=== PATIENT | female | born 1960 | race Caucasian/White ===

== ENCOUNTER → 2016-06-27 | Outpatient (CLI) | payer BC ==
[2016-06-27 12:00] VITALS: BP 125/74; PULSE 98; RESP 16; TEMP 98.2
--- NOTE | 2016-06-27 12:57 | P.PN ---
Subjective This is follow-up visit for this patient with a history of severe and chronic low back pain secondary to lumbar degenerative disc disease, lumbar spondylosis with facet arthropathy, we have done interventional pain management injection, radiofrequency ablation of the medial branch lumbar area on the left side and she is scheduled to have the right side be done the next few weeks, and is currently on pain medications 1-Girard 10/325 every 6 hours 2- Neurontin 600 mg every 8 hours 3- Flexeril 10 mg twice a day 4-amitriptyline 50 mg daily at bedtime and 25 mg every morning Patient denies any side effects of the medication, denies excessive drowsiness or sleepiness, denies suicidal ideation, and reports that the current pain medication is NOT helping To control the pain and improve activity of daily living , patient reported that over the last few weeks she started complaining of some dizziness earlier in the morning, he denies any motor or sensory deficits, but she reported that she has some stress in her life ,secondary to family issues Physical Examinations : 1-Constitutiona : Cooperative , not in acute distress . 2-HEENT : nech ; supple , no Lymphadenopathy , no Thyromegaly , normal thyroid size . eyes : no ptosis , no icterus, no photophobia . ENT : normal of hearing , normal oropharynx , no Thrush . 3- Respiratory : Chest clear to auscultations Bilaterally , no wheezing , no Rhonchi . 4- Cardiovascular : regular rate and rhythem , S1 , S2 , no S3 , no S4. 5- Gastrointestinal : abdomen soft no tenderness , bowel sounds positive all four quadrents , no organomegally . 6- Genitourinary : Defferred . 7- neurologic : Cranial nerve II to XII intact , no focal neurological deffecit (no nystagmus ) . 8-psychatric : alert , oriented X 3 , appropriate affect , intact judgment and insight . 9-Lymphatic : no Lymphadenopathy . 10- musculoskeltal : exams of the cervical spine = motor strength normal bilateral upper extremities exams of the Lumber spine = motor strength lower extremities ,thigh and legs .5/5 deep tendon reflexes : normal Knee Jerk , normal ankle Jerk . lumber facet Loading Test positive strait leg raising test positive at 30 degree , RT ,LT , Fabere test positive RT and positive LT . Range of motion: Range of motion in flexion of the lumbar spine 30 degrees Range of motion range of motion of extension of the lumbar spine 10 Assessment and plan = - Chronic low back pain secondary to lumbar degenerative disc disease , lumbar spondylosis with facet arthropathy without myelopathy , and failed back surgery syndrome and lumbar area -chronic and current use of high-risk medication (Opioids). The patient was counseled about risk of opioid use, psychological risk associated with opioids and was orally counseled to not overuse , abuse , divert ,or sell dictations to take medications as prescribed only , and to restore medication in safe location , and patient counseled against driving while using narcotic medications, and also not to use alcohol or any illicit recreational drugs the patient's verbalized understanding that the lack of compliance will result in failure to renew narcotic prescription and possible discharge from the clinic - diagnoses, prognosis, and treatment options including but not limited to physical therapy, surgical interventions, interventional therapies and medication management including narcotics and adjuvant medication were discussed with the patient and all questions answered to the patient's satisfaction. Patient having dizziness earlier in the morning (new ) Recommend continue [place] 10/325 every 6 hours dispense 120 with one refill, continue Neurontin 600 mg every 8 hours, I will decrease the Flexeril does to 5 mg twice a day, and we will decrease the amitriptyline to 25 mg 2 tablets daily at bedtime , and patient will see her primary care to evaluate regarding her dizziness, and she will follow up with the pain clinic in 2 months Objective - Vital Signs Vital signs: Vital Signs Temp 98.2 F 06/27/16 11:50 Pulse 98 06/27/16 11:50 Resp 16 06/27/16 11:50 BP 125/74 06/27/16 11:50 Pulse Ox 98 06/27/16 11:50 Intake & Output 06/26/16 06/27/16 06/27/16 18:59 06:59 18:59 Weight 60.328 kg
== END | disposition home or self-care (01) ==
LOC: PNWHC3 11:24
PROVIDERS: ATTEND Specialist
DX: M51.36 Other intervertebral disc degeneration, lumbar region (principal); M47.816 Spondylosis without myelopathy or radiculopathy, lumbar region; M46.96 Unspecified inflammatory spondylopathy, lumbar region; M96.1 Postlaminectomy syndrome, not elsewhere classified; Z79.891 Long term (current) use of opiate analgesic; R42 Dizziness and giddiness; Z79.899 Other long term (current) drug therapy
CPT/HCPCS: 99211

== ENCOUNTER 2016-07-11 07:14 | Day surgery (SDC) | payer BC ==
[2016-07-07 08:45] VITALS: BMI 21.7
[~2016-07-11 07:14] MED LIST: LACTATED RINGERS 1,000 ML IV SCH
[2016-07-11 08:14] VITALS: RESP 16; TEMP 97
[2016-07-11] MEDS ORDERED: fentaNYL (PF) 50 MCG/ML 2 ML AMP ONE (09:04)
[2016-07-11] MEDS ORDERED: MIDAZOLAM 2 MG/2 ML VIAL ONE (09:04)
[2016-07-11] MEDS ORDERED: BUPIVACAINE (PF) 0.5% 30 ML VIAL ONE (09:04)
--- NOTE | 2016-07-11 09:38 | P.PCN ---
Date of Procedure: 07/11/16 Procedure(s) Performed: PREOPERATIVE DIAGNOSIS: 1-Lumbar Spondylosis with Facet Arthropathy without myelopathy. POSTOPERATIVE DIAGNOSIS: 1- Lumbar Spondylosis with Facet Arthropathy without myelopathy. PROCEDURES : Right Radiofrequency thermocoagulation, L3-L4, L4-L5, and L5-S1 medial branch, with fluoroscopic guidance ANESTHESIA: IV sedation with versed 2 mg and fentaneyl 100 mcg and local infiltration with lidocaine 1% 6 ml EBL: Minimal PROCEDURE INDICATION: The patient with low back pain secondary to lumbar facet arthropathy who had more than 50% relief of her pain with previous diagnostic lumbar medial branch block with bupivacaine. PROCEDURE DESCRIPTION / TECHNIQUE: The patient was seen and identified in the preoperative area. Risks, benefits, complications, including but not limited to risk of infection ,bleeding , allergic reactions to the medications and no complete pain releife , and alternatives were discussed with the patient, the patient agreed to proceed with the procedure and signed the consent. IV was started. Vital signs remained stable throughout the procedure. Patient was taken to the OR and time out was completed. The patient was placed in the prone position on the procedure table. The lumber area was prepped and draped in the usual sterile fashion. . Vital signs were closely monitored during the procedure .IV sedation was used during the procedure to decrease patients anxiety. Using AP and then oblique fluoroscopy, the ``eye of the Manolo dog corresponding to the connection between the superior and transverse articular processes of right L3, L4, and L5 were identified, marked, and localized with 1 % lidocaine. Subsequently, a 18 [id number] ( Venum ) radiofrequency cannula with a 10-mm active tip was advanced guided by fluoroscopy to each of the `` eyes of the Manolo dog at right L3, L4, and L5. Each site then underwent sensory testing at 50 Hz and 0 to 1 volt and motor testing at 2.5 Hz and 0 to 3 volt with local stimulation, but no radicular symptoms down the legs. Thereafter the right L3-4, L4-5, and L5-S1 sites underwent radiofrequency thermocoagulation at 80 degrees celsius for 90 seconds after injecting 0.5 ml of PF lidocaine 1%. then After the thermocoagulation done , 1 ml of the block solution containing Kenalog 40 mg and 3 ml of marain 0.5% was injected at the right L3-4 , L4-5 , and L5-S1, levels after negative aspiration of CSF and blood and with no paresthesias. Cannulas were retracted while injecting lidocaine 1% until the needle is out. At the end of the procedure, the skin was cleansed and bandages were applied. COMPLICATIONS: No acute complications. DISPOSITION / PLANS: The patient was placed in a supine position and transferred to the recovery area in a stable condition for observation and was discharged from the recovery room after meeting discharge criteria. Home discharge instructions given to the patient by the staff. The patient was reexamined prior to discharge. The patient will schedule a follow up in the clinic in 2-4 weeks.
[2016-07-11] MEDS ORDERED: IV FLUID CONTINUATION 1,000 ML IV ONE (09:43)
[2016-07-11 10:16] VITALS: BP 109/71; PULSE 84
--- NOTE | 2016-07-11 10:23 | FL ---
Fluoroscopy HISTORY: Pain 6 seconds fluoroscopy time supplied to the referring clinician. 3 intraoperative C-arm images docume nt the procedure. See dictated report from anesthesia.
== END 2016-07-11 10:29 | disposition home or self-care (01) ==
LOC: ORPAIN 07:14
PROVIDERS: ATTEND Specialist
DX: M47.816 Spondylosis without myelopathy or radiculopathy, lumbar region (principal); M46.96 Unspecified inflammatory spondylopathy, lumbar region; K21.9 Gastro-esophageal reflux disease without esophagitis; F41.9 Anxiety disorder, unspecified; Z88.6 Allergy status to analgesic agent
CPT/HCPCS: 64635; 64636 ×2; J2250; J3010

== ENCOUNTER → 2016-08-28 | Outpatient (CLI) | payer BC ==
[2016-08-28 11:49] VITALS: BP 124/72; PULSE 96; RESP 16; TEMP 98
--- NOTE | 2016-08-29 06:22 | P.PN ---
Subjective This is follow-up visit for this patient with a history of severe and chronic low back pain secondary to lumbar failed back surgery syndrome (lumbar area ) lumbar facet arthropathy, status post radiofrequency ablation of the medial branch lumbar area, , last visit she was complaining of some dizziness episode And I decreased her Flexeril to 5 mg twice a day (it was 10 mg twice a day ), and also I decreased the amitriptyline to 50 mg daily at bedtime She continued to use [place] 10/325 every 6 hours, and the Neurontin 600 mg every 8 hours, patient saw her primary care Dr. Moreno, and he told her that her dizziness is mostly secondary to in her ear issues, and she is currently on Antivert, and her dizziness improved, she felt that amitriptyline improved her mood, and also Flexeril helped her pain, and she is questioning if he can put her back on her previous dose, she denies any suicidal ideation, he denies any change in the bowel movement or urination, denies any motor or sensory deficit Physical Examinations : 1-Constitutiona : Cooperative , not in acute distress . 2-HEENT : nech ; supple , no Lymphadenopathy , no Thyromegaly , normal thyroid size . eyes : no ptosis , no icterus, no photophobia . ENT : normal of hearing , normal oropharynx , no Thrush . 3- Respiratory : Chest clear to auscultations Bilaterally , no wheezing , no Rhonchi . 4- Cardiovascular : regular rate and rhythem , S1 , S2 , no S3 , no S4. 5- Gastrointestinal : abdomen soft no tenderness , bowel sounds positive all four quadrents , no organomegally . 6- Genitourinary : Defferred . 7- neurologic : Cranial nerve II to XII intact , no focal neurological deffecit . 8-psychatric : alert , oriented X 3 , appropriate affect , intact judgment and insight . 9-Lymphatic : no Lymphadenopathy . 10- musculoskeltal : exams of the cervical spine = motor strength normal bilateral upper extremities exams of the Lumber spine = motor strength lower extremities ,thigh and legs .09/29 Assessment and plan = - Chronic low back pain secondary to lumbar degenerative disc disease , lumbar spondylosis with facet arthropathy without myelopathy , And failed back surgery syndrome and lumbar area - chronic and current use of high-risk medication (Opioids). The patient was counseled about risk of opioid use, psychological risk associated with opioids and was orally counseled to not overuse , divert,or sell dictations to take medications as prescribed only , and to restore medication in safe location , and the patient counseled against driving while using narcotic medications, and also not to use alcohol or any illicit recreational drugs, the patient's verbalized understanding that the lack of compliance will result in failure to renew narcotic prescription and possible discharge from the clinic - diagnoses, prognosis, and treatment options including but not limited to physical therapy, surgical interventions, interventional therapies , and medication management including narcotics and adjuvant medication were discussed with the patient and all The questions answered -medication management =1-refill [place]az 10/325 every 6 hours dispensed 120 with one refill. 2-refill Neurontin 600 mg every 8 hours dispense 90 with 1 refill. 3-increase Flexeril to 10 mg twice a day dispense 60 with 1 refill . 4-increase amitriptyline to 50 mg twice a day Patient will follow up in the pain clinic in 2 months, and if patient complained of increased pain, in the future patient could benefit from caudal epidural steroid injection with lysis of epidural adhesions Objective - Vital Signs Vital signs: Vital Signs Temp 98 F 08/28/16 11:39 Pulse 96 08/28/16 11:39 Resp 16 08/28/16 11:39 BP 124/72 08/28/16 11:39 Pulse Ox 99 08/28/16 11:39 Intake & Output 08/28/16 08/28/16 08/29/16 06:59 18:59 06:59 Weight 61.235 kg
== END | disposition home or self-care (01) ==
LOC: PNWHC3 10:49
PROVIDERS: ATTEND Specialist
DX: M51.36 Other intervertebral disc degeneration, lumbar region (principal); M47.816 Spondylosis without myelopathy or radiculopathy, lumbar region; M46.96 Unspecified inflammatory spondylopathy, lumbar region; M96.1 Postlaminectomy syndrome, not elsewhere classified; R42 Dizziness and giddiness; Z79.899 Other long term (current) drug therapy; Z79.891 Long term (current) use of opiate analgesic
CPT/HCPCS: 99211

== ENCOUNTER → 2016-10-18 | Outpatient (CLI) | payer BC ==
[2016-10-18 14:16] VITALS: BP 115/72; PULSE 94; RESP 18; TEMP 98
--- NOTE | 2016-10-18 14:51 | P.PN ---
Subjective This is follow-up visit for this patient with a history of severe and chronic low back pain secondary to lumbar failed back surgery syndrome, , lumbar spondylosis with facet arthropathy, we have done interventional pain management injection,, diagnostic medial branch block , RFA of the medial branches, on the left side April 2016 and we did the right side lumbar RFA in June 2016, patient had good pain relief until recently and she started having severe low back pain, she denies any motor or sensory deficits, and no change in the bowel movement or urination and is currently on pain medications 1-[place] 10/325 every 6 hours 2-Neurontin 600 mg every 8 hours 3-Flexeril 10 mg twice a day. 4-amitriptyline 50 mg twice a day Patient denies any side effects of the medication, denies excessive drowsiness or sleepiness, denies suicidal ideation, and reports that the current pain medication is NOT helping To control the pain and improve activity of daily living Patient denies any motor or sensory deficit , patient denies any fever or night sweats, denies any change in the bowel movements or urination Physical Examinations : 1-Constitutiona : Cooperative , not in acute distress . 2-HEENT : nech ; supple , no Lymphadenopathy , no Thyromegaly , normal thyroid size . eyes : no ptosis , no icterus, no photophobia . ENT : normal of hearing , normal oropharynx , no Thrush . 3- Respiratory : Chest clear to auscultations Bilaterally , no wheezing , no Rhonchi . 4- Cardiovascular : regular rate and rhythem , S1 , S2 , no S3 , no S4. 5- Gastrointestinal : abdomen soft no tenderness , bowel sounds positive all four quadrents , no organomegally . 6- Genitourinary : Defferred . 7- neurologic : Cranial nerve II to XII intact , no focal neurological deffecit . 8-psychatric : alert , oriented X 3 , appropriate affect , intact judgment and insight . 9-Lymphatic : no Lymphadenopathy . 10- musculoskeltal : exams of the Lumber spine = motor strength lower extremities ,thigh and legs .5/5 deep tendon reflexes : normal Knee Jerk , normal ankle Jerk . lumber facet Loading Test positive strait leg raising test positive at 30 degree , RT ,LT , Fabere test positive RT and positive LT . Range of motion: Range of motion in flexion of the lumbar spine 30 degrees Range of motion range of motion of extension of the lumbar spine 10 Assessment and plan = - Chronic low back pain secondary to lumbar failed back surgery syndrome , lumbar spondylosis with facet arthropathy without myelopathy , - chronic and current use of high-risk medication (Opioids). The patient was counseled about risk of opioid use, psychological risk associated with opioids and was orally counseled to not overuse , divert,or sell dictations to take medications as prescribed only , and to restore medication in safe location , and the patient counseled against driving while using narcotic medications, and also not to use alcohol or any illicit recreational drugs, the patient's verbalized understanding that the lack of compliance will result in failure to renew narcotic prescription and possible discharge from the clinic - diagnoses, prognosis, and treatment options including but not limited to physical therapy, surgical interventions, interventional therapies , and medication management including narcotics and adjuvant medication were discussed with the patient and all The questions answered Patient given prescription refill for [place] 10/325 every 6 hours dispense 120 with one refill, Neurontin 600 mg every 8 hours dispense 90 with 1 refill, Flexeril 10 mg twice a day dispense 60 with one refill, amitriptyline 50 mg twice a day dispense 60 with 1 refill, and patient could benefit from repeat radiofrequency ablation medial branch lumbar area and left-sided L3 -4 / L4 -5/L5-S1 Objective - Vital Signs Vital signs: Vital Signs Temp 98 F 10/18/16 14:08 Pulse 94 10/18/16 14:08 Resp 18 10/18/16 14:08 BP 115/72 10/18/16 14:08 Pulse Ox Intake & Output 10/17/16 10/18/16 10/18/16 18:59 06:59 18:59 Weight 60.781 kg
== END ==
LOC: PNWHC3 12:41
PROVIDERS: ATTEND Specialist
DX: M47.816 Spondylosis without myelopathy or radiculopathy, lumbar region (principal); M46.86 Other specified inflammatory spondylopathies, lumbar region; G89.29 Other chronic pain; Z87.891 Personal history of nicotine dependence; Z79.899 Other long term (current) drug therapy
CPT/HCPCS: 99211

== ENCOUNTER 2016-11-30 10:06 | Day surgery (SDC) | payer BC ==
[2016-11-24 14:50] VITALS: BMI 21.7
[~2016-11-30 10:06] MED LIST changes: +LACTATED RINGERS 1,000 ML IV ONE; -LACTATED RINGERS 1,000 ML IV SCH
[2016-11-30] MEDS ORDERED: LIDOCAINE 1% 20 ML VIAL (10MG/ML) FOR IV START INTRADERMA ONE (11:41)
[2016-11-30 11:58] VITALS: RESP 16; TEMP 97.6
[2016-11-30] MEDS ORDERED: ONDANSETRON 4 MG/2 ML VIAL IVP ONE (12:02)
[2016-11-30] MEDS ORDERED: fentaNYL (PF) 50 MCG/ML 2 ML AMP ONE (12:49)
[2016-11-30] MEDS ORDERED: MIDAZOLAM 2 MG/2 ML VIAL ONE (12:49)
--- NOTE | 2016-11-30 13:11 | P.PCN ---
Date of Procedure: 11/30/16 Preoperative Diagnosis: Postoperative Diagnosis: Procedure(s) Performed: PREOPERATIVE DIAGNOSIS: 1-Lumbar Spondylosis with Facet Arthropathy without myelopathy. POSTOPERATIVE DIAGNOSIS: 1- Lumbar Spondylosis with Facet Arthropathy without myelopathy. PROCEDURES : Left Radiofrequency thermocoagulation, L3-L4, L4-L5, and L5-S1 medial branch, with fluoroscopic guidance ANESTHESIA: IV sedation with versed 2 mg, and fentaneyl 100 mcg and local infiltration with lidocaine 1% 6 ml EBL: Minimal PROCEDURE INDICATION: The patient with low back pain secondary to lumbar facet arthropathy who had more than 50% relief of her pain with previous diagnostic lumbar medial branch block with bupivacaine. PROCEDURE DESCRIPTION / TECHNIQUE: The patient was seen and identified in the preoperative area. Risks, benefits, complications, including but not limited to risk of infection ,bleeding , allergic reactions to the medications and no complete pain releife , and alternatives were discussed with the patient, the patient agreed to proceed with the procedure and signed the consent. IV was started. Vital signs remained stable throughout the procedure. Patient was taken to the OR and time out was completed. The patient was placed in the prone position on the procedure table. The lumber area was prepped and draped in the usual sterile fashion. . Vital signs were closely monitored during the procedure .IV sedation was used during the procedure to decrease patients anxiety. Using AP and then oblique fluoroscopy, the ``eye of the Manolo dog corresponding to the connection between the superior and transverse articular processes of left L3, L4, and L5 were identified, marked, and localized with 1 % lidocaine. Subsequently, a 18 [id number] radiofrequency cannula with a 10- mm active tip was advanced guided by fluoroscopy to each of the ``eyes of the Manolo dog at left L3, L4, and L5. Each site then underwent sensory testing at 50 Hz and 0 to 1 volt and motor testing at 2.5 Hz and 0 to 3 volt with local stimulation, but no radicular symptoms down the legs. Thereafter the left L3-4, L4-5, and L5-S1 sites underwent radiofrequency thermocoagulation at 80 degrees celsius for 90 seconds after injecting 0.5 ml of PF lidocaine 1%. then After the thermocoagulation done , 1 ml of the block solution containing Kenalog 40 mg and 3 ml of marain 0.5% was injected at the left L3-4 , L4-5 , and L5-S1, levels after negative aspiration of CSF and blood and with no paresthesias. Cannulas were retracted while injecting lidocaine 1% until the needle is out. At the end of the procedure, the skin was cleansed and bandages were applied. COMPLICATIONS: No acute complications. DISPOSITION / PLANS: The patient was placed in a supine position and transferred to the recovery area in a stable condition for observation and was discharged from the recovery room after meeting discharge criteria. Home discharge instructions given to the patient by the staff. The patient was reexamined prior to discharge. The patient will schedule a follow up in the clinic in 2-4 weeks. Implants: Indications for Procedure: Operative Findings: Description of Procedure:
[2016-11-30] MEDS ORDERED: KETOROLAC 30 MG/ML 1 ML VIAL IVP STA (13:13)
[2016-11-30] MEDS ORDERED: IV FLUID CONTINUATION 1,000 ML IV ONE (13:17)
[2016-11-30 14:01] VITALS: BP 120/81; PULSE 81
--- NOTE | 2016-12-01 10:27 | FL ---
FLUOROSCOPY 6 seconds of fluoroscopy time were utilized during Pain Injection. 3 images document the procedure.
== END 2016-11-30 13:57 | disposition home or self-care (01) ==
LOC: ORPAIN 10:06
PROVIDERS: ATTEND Specialist
DX: Z88.6 Allergy status to analgesic agent (principal)
CPT/HCPCS: 64635; 64636 ×2; 99152; J2250; J2405; J3010; J1885

== ENCOUNTER → 2016-12-13 | Outpatient (CLI) | payer BC ==
--- NOTE | 2016-12-13 14:28 | P.PN ---
Progress Note - Text Patient returns for followup for back pain without significant radiation. Patient underwent left lumbar RFA in the beginning of November, with right side done last in May 2016 with good results and improvement in pain overall. Patient continues on [place]/Flexeril/Elavil medications for pain with good relief and is requesting increase back to 100 mg po QPM of Elavil today. Patient denies adverse drug effects from medications. Today, pt denies new- onset weakness, bowel/bladder incontinence, or any other signs or symptoms of cauda equina syndrome. There are no signs of acute intoxication, and no indications of medication diversion or overuse. In addition to above, 13-point review of systems is also negative for chest pain , shortness of breath, changes in vision, changes in hearing, new onset weakness , abdominal pain, diarrhea, extreme fatigue, malaise, fever, skin changes, homicidal or suicidal ideation, or bowel or bladder incontinence. Vital Signs: Reviewed in EMR Gen: WDWN, AAOx3, NAD HEENT: NCAT, EOMI, hearing grossly normal Pulm: resp unlabored Abd: soft, NT, ND Neck: supple, trachea midline ROM in flexion lumbar spine: reduced ROM in extension lumbar spine: reduced Lumbar paravertebral tenderness: + Facet loading: + R > L Lower extremity: strength decreased bilaterally due to pain Neuro: CN II-XII grossly intact, muscle strength lower extremities PRESERVED Imaging: Reviewed in EMR Assessment: 1. lumbar spondylosis without myelopathy 2. lumbar DDD 3. lumbar postlaminectomy syndrome 4. chronic pain syndrome Plan: 1. Explanation: Opioid and psychological risk scores were reviewed. Diagnoses , prognoses, and multiple treatment options including but not limited to physical therapy, interventional therapies, adjuvant medical therapies, narcotic medication therapies, and surgery were discussed with the patient and all questions were answered to the patient's satisfaction. 2. Opioid agreement: Patient has previously signed narcotic agreement, and was orally counseled to not overuse, abuse, divert, or cell medications, and to take them as prescribed by only 1 healthcare provider. The patient was also counseled to store opioid medications in a safe and preferably locked location. Patient was also counseled against driving while using narcotic medications and also to not use alcohol or any illicit or recreational drugs. The patient verbalized understanding that lack of compliance with any of the above and likely result in failure to renew narcotic prescriptions, possible discharge from the clinic, and possible legal ramifications thereafter if indicated. 3. Counseling: The patient was counseled extensively on BODY MASS INDEX, EXERCISE. Specifically, the patient was instructed regarding the importance of obesity, and exercise in the context of both chronic pain and overall health. 4. Procedures: repeat right lumbar RFA at next visit 5. Consultations: None 6. Investigations: None 7. Medications: refilled [place] 10/325 #120 with one refill and Elavil increased to 50 mg po QAM and 100 mg po QPM #90 with two refills, Flexeril 10 mg #90 with two refills 8. Disposition: f/u for right lumbar RFA as scheduled PQRS measures: 1-Patient's medications are documented in the chart. 2-Tobacco use is negative 3-Patient has not had a pneumococcal vaccine. 4-Advanced care planning discussed, patient unable to give. 5-Opioid contract signed with the patient. 6-Pain positive, follow-up visit or procedure scheduled 7-Patient's blood pressure measured and documented, WNL. 8-Patient's weight was measured, and body mass index within the normal limits 9-Patient WAS NOT identified as an unhealthy alcohol user.
== END | disposition home or self-care (01) ==
LOC: PNWHC3 13:11
PROVIDERS: ATTEND Anesthesiology
DX: M51.36 Other intervertebral disc degeneration, lumbar region (principal); M47.816 Spondylosis without myelopathy or radiculopathy, lumbar region; M96.1 Postlaminectomy syndrome, not elsewhere classified; G89.4 Chronic pain syndrome
CPT/HCPCS: 80307; 80356; 80364; 99211

== ENCOUNTER 2017-01-03 07:02 | Day surgery (SDC) | payer BC ==
[2017-01-03] MEDS ORDERED: LACTATED RINGERS 1,000 ML IV SCH (07:15)
[2017-01-03 08:16] VITALS: RESP 16; TEMP 97.9
[2017-01-03] MEDS ORDERED: LIDOCAINE 1% 20 ML VIAL (10MG/ML) FOR IV START INTRADERMA ONE (08:19)
[2017-01-03] MEDS ORDERED: IV FLUID CONTINUATION 1,000 ML IV ONE (09:22)
--- NOTE | 2017-01-03 09:23 | FL ---
EXAMINATION TYPE: FL guided pain mgmt statistic DATE OF EXAM: 01/03/2017 HISTORY: Flouroscopy time 5 seconds of fluoroscopy provided. IMPRESSION: 1. Fluoroscopy time.
[2017-01-03 09:38] VITALS: BP 114/69; PULSE 84
--- NOTE | 2017-01-03 09:45 | P.PCN ---
Date of Procedure: 01/03/17 Preoperative Diagnosis: Postoperative Diagnosis: Procedure(s) Performed: Implants: Surgeon: Hang Frost Pathology: none sent Condition: stable Disposition: PACU Indications for Procedure: Operative Findings: Description of Procedure: PREOPERATIVE DIAGNOSIS: Lumbar spondylosis without myelopathy and facet arthropathy POSTOPERATIVE DIAGNOSIS: Lumbar spondylosis without myelopathy and facet arthropathy PROCEDURES: Right Radiofrequency thermocoagulation, L3-L4, L4-L5, and L5-S1 medial branch, with fluoroscopic guidance. ANESTHESIA: 1% lidocaine plain; Conscious sedation with versed/fentanyl EBL: Minimal PROCEDURE INDICATION: The patient with low back pain secondary to lumbar arthropathy who had more than 50% relief of pain with previous diagnostic lumbar medial branch block with bupivacaine. Patient presents for right lumbar RFA today after getting good relief from left side; no use of blood thinners. PROCEDURE DESCRIPTION / TECHNIQUE: The patient was seen and identified in the preoperative area. Risks, benefits, complications, and alternatives were discussed with the patient (including but not limited to incomplete pain relief , bleeding, infection, nerve damage, and allergies to medications), the patient agreed to proceed with the procedure and signed the consent after all questions were answered. Patient was taken to the OR and time out was completed to verify proper patient , position, laterality of pain, and allergies. Pt was placed in the prone position. IV was started. Vital signs remained stable throughout the procedure. A pillow was placed under the patients chest to decrease lordosis. The lumbosacral area was prepped and draped in the usual sterile fashion. Vital signs were closely monitored during the procedure. Conscious sedation was used during the procedure to decrease patients anxiety. Using AP and then oblique fluoroscopy, the eye of the Manolo dog corresponding to the connection between the superior and transverse articular processes of right L4, L5 and top of the sacrum were identified, marked, and localized with 1% lidocaine. Subsequently, a 18 gauge, 100-mm radiofrequency cannula with a 10-mm active tip was advanced guided by fluoroscopy to each of the eyes of the Manolo dog at right L3, L4, and L5 medial branches. Each site then underwent sensory testing at 50 Hz and 0 to 1 volt and motor testing at 2 Hz and 0 to 3 volt with local stimulation, but no radicular symptoms down the legs. Thereafter the right L3, L4, and L5 medial branch sites underwent radiofrequency thermocoagulation at 80 degrees Celsius for 90 seconds after injecting 0.5 ml of PF lidocaine 1%. After thermocoagulation, 1 ml of the block solution containing Kenalog 40 mg and 2 mL of preservative-free normal saline was injected at the right L3, L4, and L5 medial branch levels after negative aspiration of CSF and blood and with no paresthesias. Cannulas were retracted while injecting lidocaine 1% until the needles were removed. At the end of the procedure, the skin was cleansed and bandages were applied. COMPLICATIONS: No acute complications. DISPOSITION / PLANS: The patient was placed in a supine position and transferred to the recovery area in a stable condition for observation and was discharged from the recovery room after meeting discharge criteria. Home discharge instructions given to the patient by the staff. The patient was reexamined prior to discharge. The patient will schedule a follow up in the clinic in 2-4 weeks as bilateral RFA completed.
== END 2017-01-03 09:55 | disposition home or self-care (01) ==
LOC: ORPAIN 07:02
PROVIDERS: ATTEND Anesthesiology
DX: G89.4 Chronic pain syndrome (principal); M47.816 Spondylosis without myelopathy or radiculopathy, lumbar region; M46.96 Unspecified inflammatory spondylopathy, lumbar region; M51.36 Other intervertebral disc degeneration, lumbar region; M96.1 Postlaminectomy syndrome, not elsewhere classified; Z79.891 Long term (current) use of opiate analgesic; Z79.899 Other long term (current) drug therapy
CPT/HCPCS: 64635; 64636 ×2; 99152; J2250; J3301; J3010; 99153

== ENCOUNTER → 2017-02-07 | Outpatient (CLI) | payer BC ==
[2017-02-07 13:39] VITALS: BP 145/77; PULSE 112; RESP 16
--- NOTE | 2017-02-07 13:57 | P.PN ---
Progress Note - Text Patient returns for followup for back pain without significant radiation. Patient underwent bilateral lumbar RFA with good results and improvement in pain overall; patient states that she did have burning in anterior right thigh for one day after procedure but it resolved within 24 hours. Patient continues on [place]/Flexeril/Elavil medications for pain with good relief. Patient denies adverse drug effects from medications. Today, pt denies new-onset weakness, bowel/bladder incontinence, or any other signs or symptoms of cauda equina syndrome. There are no signs of acute intoxication, and no indications of medication diversion or overuse. In addition to above, 13-point review of systems is also negative for chest pain , shortness of breath, changes in vision, changes in hearing, new onset weakness , abdominal pain, diarrhea, extreme fatigue, malaise, fever, skin changes, homicidal or suicidal ideation, or bowel or bladder incontinence. Vital Signs: Reviewed in EMR Gen: WDWN, AAOx3, NAD HEENT: NCAT, EOMI, hearing grossly normal Pulm: resp unlabored Abd: soft, NT, ND Neck: supple, trachea midline ROM in flexion lumbar spine: reduced ROM in extension lumbar spine: reduced Lumbar paravertebral tenderness: + Facet loading: + bilateral Lower extremity: strength grossly intact Neuro: CN II-XII grossly intact, muscle strength lower extremities PRESERVED Imaging: Reviewed in EMR Assessment: 1. lumbar spondylosis without myelopathy 2. lumbar DDD 3. lumbar postlaminectomy syndrome 4. chronic pain syndrome Plan: 1. Explanation: Opioid and psychological risk scores were reviewed. Diagnoses , prognoses, and multiple treatment options including but not limited to physical therapy, interventional therapies, adjuvant medical therapies, narcotic medication therapies, and surgery were discussed with the patient and all questions were answered to the patient's satisfaction. 2. Opioid agreement: Patient has previously signed narcotic agreement, and was orally counseled to not overuse, abuse, divert, or cell medications, and to take them as prescribed by only 1 healthcare provider. The patient was also counseled to store opioid medications in a safe and preferably locked location. Patient was also counseled against driving while using narcotic medications and also to not use alcohol or any illicit or recreational drugs. The patient verbalized understanding that lack of compliance with any of the above and likely result in failure to renew narcotic prescriptions, possible discharge from the clinic, and possible legal ramifications thereafter if indicated. 3. Counseling: The patient was counseled extensively on BODY MASS INDEX, EXERCISE. Specifically, the patient was instructed regarding the importance of obesity, and exercise in the context of both chronic pain and overall health. 4. Procedures: none for now 5. Consultations: None 6. Investigations: None 7. Medications: [place] 10/325 #120 with one refill and Motrin/Flexeril/Neurontin /Elavil all with five refills 8. Disposition: f/u for re-eval in 8 weeks; will discuss reduction of opioids at next visit PQRS measures: 1-Patient's medications are documented in the chart. 2-Tobacco use is negative 3-Patient has not had a pneumococcal vaccine. 4-Advanced care planning discussed, patient unable to give. 5-Opioid contract signed with the patient. 6-Pain positive, follow-up visit or procedure scheduled 7-Patient's blood pressure measured and documented, WNL. 8-Patient's weight was measured, and body mass index within the normal limits 9-Patient WAS NOT identified as an unhealthy alcohol user.
== END | disposition home or self-care (01) ==
LOC: PNWHC3 13:21
PROVIDERS: ATTEND Anesthesiology
DX: M51.36 Other intervertebral disc degeneration, lumbar region (principal); M47.816 Spondylosis without myelopathy or radiculopathy, lumbar region; M96.1 Postlaminectomy syndrome, not elsewhere classified; G89.4 Chronic pain syndrome; Z79.899 Other long term (current) drug therapy
CPT/HCPCS: 99211

== ENCOUNTER → 2017-04-04 | Outpatient (CLI) | payer BC ==
[2017-04-04 14:54] VITALS: BP 113/80; PULSE 113; RESP 16
--- NOTE | 2017-04-04 15:11 | P.PN ---
Subjective Progress Note Date: 04/04/17 This is for visit for this 56 years old female with a chronic history of severe low back pain diagnosed with lumbar spondylosis with lumbar facet arthropathy without myelopathy and also she had failed back surgery syndrome and lumbar area , with done the radiofrequency portion of the medial branch lumbar area which helped her low back pain significantly, had more than 50% improvement in her low back pain currently she is taking and [place] 10/325-6 hours Flexeril 10 mg twice a day and Neurontin 600 mg 3 times a day, sertraline 50 mg every morning and 100 mg daily at bedtime she denies any side effect of the medication she denies any excessive drowsiness or sleepiness and she reported current medications to control her pain she denies any motor or sensory deficit, denies any fever or night sweats Objective - Vital Signs Vital signs: Vital Signs Temp Pulse 113 H 04/04/17 14:41 Resp 16 04/04/17 14:41 BP 113/80 04/04/17 14:41 Pulse Ox 96 04/04/17 14:41 Intake & Output 04/03/17 04/04/17 04/04/17 18:59 06:59 18:59 Weight 61.235 kg - Exam Physical Examinations : 1-Constitutiona : Cooperative , not in acute distress . 2-HEENT : nech ; supple , no Lymphadenopathy , normal thyroid size . eyes : no ptosis , no icterus, no photophobia . ENT : normal of hearing , normal oropharynx , no Thrush . 3- Respiratory : Chest clear to auscultations Bilaterally , no wheezing , no Rhonchi . 4- Cardiovascular : regular rate and rhythem , S1 , S2 , no S3 , no S4. 5- Gastrointestinal : abdomen soft no tenderness , bowel sounds positive all four quadrents , no organomegally . 6- Genitourinary : Defferred . 7- neurologic : Cranial nerve II to XII intact , no focal neurological deffecit . 8-psychatric : alert , oriented X 3 , appropriate affect , intact judgment and insight . 9-Lymphatic : no Lymphadenopathy . 10- musculoskeltal : , Lumber spine = normal moter stegnth lower extremities ,thigh and legs .5/5 deep tendon reflexes : normal Knee Jerk , normal ankle Jerk . positive lumber facet Loading Test strait leg raising test positive at 60 degree , RT ,LT , Fabere test positive RT and positive LT . Multiple trigger point identified in the upper lumbar paravertebral muscles Assessment and Plan Plan: Assessment and plan= chronic low back pain secondary to lumbar degenerative disc disease , lumbar spondylosis with lumbar facet arthropathy , failed back surgery syndrome and lumbar area chronic and current use of high-risk medication (opioids) Patient denies any side effects of the current pain medication and the current treatment/medication ML and the patient to do activity of daily living , Diagnoses, prognosis, treatment options, including but not limited to physical therapy, medication management, interventional therapies, and surgery, were discussed with the patient All the questions answered Patient signed the narcotic agreement, and he was orally counseled, not to overuse, not to abuse, not to Divert , not tp sell pain medication, and to take it as prescribed only, Patient was counseled not to drive or operate heavy equipment while using narcotic medication, and advised not to use alcohol or any Illicit drugs while using the narcotis, the patient's verbalized understanding that lack of compliance with any of the above instructions and will likely to cause discharge from the pain service, not to renew his narcotic prescriptions Medication managements= patient will be given prescription refills for 1-[place] 10/325 every 6 hours dispense 120 with one refill 2-Neurontin 600 mg 3 times a day dispense 90 with 1 refill 3-flexeril 10 mg twice a dispense 60 with one refill 4-amitriptyline 50 mg 1 tablet every morning and 2 tablets daily at bedtime Interventional pain management=none Refferal = Follow-up= 2 months , Time with Patient: Less than 30
== END ==
LOC: PNWHC3 14:16
PROVIDERS: ATTEND Specialist
DX: M51.36 Other intervertebral disc degeneration, lumbar region (principal); M47.816 Spondylosis without myelopathy or radiculopathy, lumbar region; M46.86 Other specified inflammatory spondylopathies, lumbar region; Z79.891 Long term (current) use of opiate analgesic; Z79.899 Other long term (current) drug therapy
CPT/HCPCS: 99211

== ENCOUNTER → 2017-05-30 | Outpatient (CLI) | payer BC ==
--- NOTE | 2017-05-30 13:44 | P.PN ---
Progress Note - Text Progress Note Date: 05/30/17 Patient returns for followup for back pain without significant radiation. Patient previously underwent bilateral lumbar RFA with good results and improvement in pain overall and is requesting left sided lumbar RFA today. Patient continues on [place]/Flexeril/Elavil medications for pain with good relief. Patient denies adverse drug effects from medications. Today, pt denies new-onset weakness, bowel/bladder incontinence, or any other signs or symptoms of cauda equina syndrome. There are no signs of acute intoxication, and no indications of medication diversion or overuse. In addition to above, 13-point review of systems is also negative for chest pain , shortness of breath, changes in vision, changes in hearing, new onset weakness , abdominal pain, diarrhea, extreme fatigue, malaise, fever, skin changes, homicidal or suicidal ideation, or bowel or bladder incontinence. Vital Signs: Reviewed in EMR Gen: WDWN, AAOx3, NAD HEENT: NCAT, EOMI, hearing grossly normal Pulm: resp unlabored Abd: soft, NT, ND Neck: supple, trachea midline ROM in flexion lumbar spine: reduced ROM in extension lumbar spine: reduced Lumbar paravertebral tenderness: + Facet loading: + bilateral Lower extremity: strength grossly intact Neuro: CN II-XII grossly intact, muscle strength lower extremities PRESERVED Imaging: Reviewed in EMR Assessment: 1. lumbar spondylosis without myelopathy 2. lumbar DDD 3. lumbar postlaminectomy syndrome 4. chronic pain syndrome Plan: 1. Explanation: Opioid and psychological risk scores were reviewed. Diagnoses , prognoses, and multiple treatment options including but not limited to physical therapy, interventional therapies, adjuvant medical therapies, narcotic medication therapies, and surgery were discussed with the patient and all questions were answered to the patient's satisfaction. 2. Opioid agreement: Patient has previously signed narcotic agreement, and was orally counseled to not overuse, abuse, divert, or cell medications, and to take them as prescribed by only 1 healthcare provider. The patient was also counseled to store opioid medications in a safe and preferably locked location. Patient was also counseled against driving while using narcotic medications and also to not use alcohol or any illicit or recreational drugs. The patient verbalized understanding that lack of compliance with any of the above and likely result in failure to renew narcotic prescriptions, possible discharge from the clinic, and possible legal ramifications thereafter if indicated. 3. Counseling: The patient was counseled extensively on BODY MASS INDEX, EXERCISE. Specifically, the patient was instructed regarding the importance of obesity, and exercise in the context of both chronic pain and overall health. 4. Procedures: left lumbar RFA L3-S1 5. Consultations: None 6. Investigations: None 7. Medications: [place] 10/325 #120 with one refill 8. Disposition: f/u for procedure as scheduled PQRS measures: 1-Patient's medications are documented in the chart. 2-Tobacco use is negative 3-Patient has not had a pneumococcal vaccine. 4-Advanced care planning discussed, patient unable to give. 5-Opioid contract signed with the patient. 6-Pain positive, follow-up visit or procedure scheduled 7-Patient's blood pressure measured and documented, WNL. 8-Patient's weight was measured, and body mass index within the normal limits 9-Patient WAS NOT identified as an unhealthy alcohol user.
[2017-05-30 23:28] VITALS: BP 127/79; PULSE 102; RESP 16; TEMP 97.5
== END | disposition home or self-care (01) ==
LOC: PNWHC3 12:40
PROVIDERS: ATTEND Anesthesiology
DX: G89.4 Chronic pain syndrome (principal); M54.9 Dorsalgia, unspecified; M51.36 Other intervertebral disc degeneration, lumbar region; M47.816 Spondylosis without myelopathy or radiculopathy, lumbar region; M96.1 Postlaminectomy syndrome, not elsewhere classified; Z79.891 Long term (current) use of opiate analgesic; Z79.899 Other long term (current) drug therapy
CPT/HCPCS: 99211

== ENCOUNTER 2017-06-28 06:11 | Day surgery (SDC) | payer BC ==
[2017-06-26 09:08] VITALS: BMI 21.7
[~2017-06-28 06:11] MED LIST changes: -LACTATED RINGERS 1,000 ML IV ONE; +LACTATED RINGERS 1,000 ML IV SCH
[2017-06-28 06:27] VITALS: RESP 16; TEMP 97.8
[2017-06-28] MEDS ORDERED: LIDOCAINE 1% 20 ML VIAL (10MG/ML) FOR IV START INTRADERMA ONE (06:38)
--- NOTE | 2017-06-28 07:35 | P.PCN ---
Date of Procedure: 06/28/17 Surgeon: Sang Stovall Pathology: none sent Condition: stable Disposition: PACU Description of Procedure: PREOPERATIVE DIAGNOSIS: Lumbar spondylosis without myelopathy, morbid obesity POSTOPERATIVE DIAGNOSIS: Lumbar spondylosis without myelopathy,morbid obesity PROCEDURES : Left Radiofrequency thermocoagulation,L2-4, L3-L4, L4-L5, and L5- S1 medial branch, with fluoroscopic guidance ANESTHESIA: IV conscious sedation with versed and fentaneyl and local infiltration with lidocaine 1% 5 ml EBL: Minimal PROCEDURE INDICATION: The patient with low back pain secondary to lumbar facet arthropathy who had more than 50% relief of her pain with previous diagnostic lumbar medial branch block with bupivacaine. PROCEDURE DESCRIPTION / TECHNIQUE: The patient was seen and identified in the preoperative area. Risks, benefits, complications, including but not limited to risk of infection ,bleeding , allergic reactions to the medications and no complete pain releife , and alternatives were discussed with the patient, the patient agreed to proceed with the procedure and signed the consent. IV was started. Vital signs remained stable throughout the procedure. Patient was taken to the OR and time out was completed. The patient was placed in the prone position on the procedure table. The lumber area was prepped and draped in the usual sterile fashion. . Vital signs were closely monitored during the procedure .IV sedation was used during the procedure to decrease patients anxiety. The target points were identified as follows: For the L5-S1 level which corresponds to the dorsal ramus of L5 the target point was at the superior medial aspect of the sacral ala on the left side of the spine on the AP view of fluoroscopy and for the L2, L3, and L4 medial branches the target points were at the connection between the transverse process and the superior articular process of L3, L4, and L5 vertebra respectively on the left oblique view of fluoroscopy. skin was marked, and localized with 1% lidocaineat these points. Subsequently, an 18 -zc radiofrequency needles with a 10-mm curved active tips were advanced guided by fluoroscopy to each of the target points mentioned above in a superior medial direction to get the active tips as parallel as possible to the medial branches tracks. AP, oblique, and lateral views of fluoroscopy were used to verify needle tips position. Each level then underwent motor testing at 2.5 Hz and 0 to 3 volt with local stimulation, but no radicular symptoms down the legs. Thereafter radiofrequency thermocoagulation at 80 degrees celsius for 90 seconds after injecting 1 ml of PF Marcaine 0.5%(3 mls) with 40 mg of Kenalog. At the end of the procedure, the skin was cleansed and bandages were applied. COMPLICATIONS: No acute complications. DISPOSITION / PLANS: The patient was placed in a supine position and transferred to the recovery area in a stable condition for observation and was discharged from the recovery room after meeting discharge criteria. Home discharge instructions given to the patient by the staff. The patient was reexamined prior to discharge. The patient will schedule a follow up in the clinic in 2-4 weeks.
[2017-06-28 07:50] VITALS: BP 117/75
[2017-06-28 08:13] VITALS: PULSE 95
--- NOTE | 2017-06-28 10:50 | FL ---
Fluoroscopy HISTORY: Pain EXAMINATION TYPE: FL guided pain mgmt statistic DATE OF EXAM: 06/28/2017 Fluoroscopy support supplied to the referring clinician. See dictated report from anesthesia, 30 sec onds fluoroscopy time supplied to the referring clinician. 2 intraoperative C-arm images document th e procedure.
== END 2017-06-28 08:22 | disposition home or self-care (01) ==
LOC: ORPAIN 06:11
PROVIDERS: ATTEND Anesthesiology
DX: M47.816 Spondylosis without myelopathy or radiculopathy, lumbar region (principal); L40.9 Psoriasis, unspecified; Z88.6 Allergy status to analgesic agent
CPT/HCPCS: 64636 ×3; 64635; J2250; J3301; J2001; J3010; 99152; 99153

== ENCOUNTER 2017-07-25 06:15 | Day surgery (SDC) | payer BC ==
[2017-07-23 10:11] VITALS: BMI 22.1
[2017-07-25 06:36] VITALS: TEMP 98
[2017-07-25] MEDS ORDERED: LACTATED RINGERS 1,000 ML IV ONE (06:42)
[2017-07-25] MEDS ORDERED: LIDOCAINE 1% 20 ML VIAL (10MG/ML) FOR IV START INTRADERMA ONE (06:42)
--- NOTE | 2017-07-25 07:29 | P.PCN ---
Date of Procedure: 07/25/17 Surgeon: Sang Stovall Description of Procedure: PREOPERATIVE DIAGNOSIS: Lumbar spondylosis without myelopathy, morbid obesity POSTOPERATIVE DIAGNOSIS: Lumbar spondylosis without myelopathy,morbid obesity PROCEDURES : Left Radiofrequency thermocoagulation, L3-L4, L4-L5, and L5-S1 medial branch, with fluoroscopic guidance ANESTHESIA: IV conscious sedation with versed and fentaneyl and local infiltration with lidocaine 1% 5 ml EBL: Minimal PROCEDURE INDICATION: The patient with low back pain secondary to lumbar facet arthropathy who had more than 50% relief of her pain with previous diagnostic lumbar medial branch block with bupivacaine. PROCEDURE DESCRIPTION / TECHNIQUE: The patient was seen and identified in the preoperative area. Risks, benefits, complications, including but not limited to risk of infection ,bleeding , allergic reactions to the medications and no complete pain releife , and alternatives were discussed with the patient, the patient agreed to proceed with the procedure and signed the consent. IV was started. Vital signs remained stable throughout the procedure. Patient was taken to the OR and time out was completed. The patient was placed in the prone position on the procedure table. The lumber area was prepped and draped in the usual sterile fashion. . Vital signs were closely monitored during the procedure .IV sedation was used during the procedure to decrease patients anxiety. The target points were identified as follows: For the L5-S1 level which corresponds to the dorsal ramus of L5 the target point was at the superior medial aspect of the sacral ala on the left side of the spine on the AP view of fluoroscopy and for the L3, and L4 medial branches the target points were at the connection between the transverse process and the superior articular process of L4, and L5 vertebra respectively on the left oblique view of fluoroscopy. skin was marked, and localized with 1% lidocaineat these points. Subsequently, an 18 [id number] radiofrequency needles with a 10-mm curved active tips were advanced guided by fluoroscopy to each of the target points mentioned above in a superior medial direction to get the active tips as parallel as possible to the medial branches tracks. AP, oblique, and lateral views of fluoroscopy were used to verify needle tips position. Each level then underwent motor testing at 2.5 Hz and 0 to 3 volt with local stimulation, but no radicular symptoms down the legs. Thereafter radiofrequency thermocoagulation at 80 degrees celsius for 90 seconds after injecting 1 ml of PF Marcaine 0.5%(3 mls) with 40 mg of Kenalog. At the end of the procedure, the skin was cleansed and bandages were applied. COMPLICATIONS: No acute complications. DISPOSITION / PLANS: The patient was placed in a supine position and transferred to the recovery area in a stable condition for observation and was discharged from the recovery room after meeting discharge criteria. Home discharge instructions given to the patient by the staff. The patient was reexamined prior to discharge. The patient will schedule a follow up in the clinic in 2-4 weeks.
[2017-07-25] MEDS ORDERED: IV FLUID CONTINUATION 1,000 ML IV ONE (07:35)
[2017-07-25 07:40] VITALS: RESP 16
[2017-07-25 07:55] VITALS: BP 126/84; PULSE 80
--- NOTE | 2017-07-25 09:03 | FL ---
Fluoroscopy HISTORY: Pain 12 seconds fluoroscopy time supplied to the referring clinician. 3 intraoperative C-arm images docum ent the procedure. See dictated report from anesthesia.
--- NOTE | 2017-07-29 15:51 | CDI ---
Outpatient Documentation Clarification Form Date: 07/29/17 CDS/Cold Molding Press Operator Name: Patito Abraham Phone: If any questions, call Swetha Gregorio Public Housing Interviewer at [phone] Patient Name: Ysabel Mojica Admit Date: 07/25/17 Discharge Date: 07/25/17 ATTENTION: The [facility] Coding Staff appreciate your assistance in clarifying documentation. Please respond to the clarification below the line at the bottom and electronically sign. The [facility] Coding staff will review the response and follow-up if needed. Please note: Queries are made part of the Legal Health Record. If you have any questions, please contact the Public Housing Interviewer. Dear Dr. Stovall The pre and post op diagnosis both state a diagnosis of morbid obesity. The patients EMR reflects a BMI of 22.1. According to multiple sources, a BMI of 22.1 is considered normal. Please confirm whether or not the patient is morbidly obese and the correct BMI. Thank you for your kind consideration. MTDD
== END 2017-07-25 08:05 | disposition home or self-care (01) ==
LOC: ORPAIN 06:15
PROVIDERS: ATTEND Anesthesiology
DX: M47.816 Spondylosis without myelopathy or radiculopathy, lumbar region (principal); G54.6 Phantom limb syndrome with pain; Z88.6 Allergy status to analgesic agent; Z78.0 Asymptomatic menopausal state
CPT/HCPCS: 64635; 64636; J2250; J3301; J3010; 99152

== ENCOUNTER 2017-08-22 10:41 | Emergency (ER) | payer BC ==
[2017-08-22 11:11] VITALS: RESP 16
--- NOTE | 2017-08-22 11:52 | ED ---
General Adult HPI - General Chief complaint: Extremity Problem,Nontraumatic Stated complaint: Calf pain Time Seen by Provider: 08/22/17 11:15 Source: patient, RN notes reviewed Mode of arrival: ambulatory Limitations: no limitations - History of Present Illness Initial comments: 57-year-old female presents to the emergency department for a chief complaint of right calf pain. Patient states she was at her nephew's house last night when she first noticed the pain. Patient does not recall straining the muscle but states it is possible. Patient denies any acute injury or pain in the ankle knee or hip. Patient denies pain in the foot. Patient states the pain is worse when she walks and better when she sits down. Patient has not tried anything for pain relief. Patient is concerned of a DVT as her sister had 2 DVTs in the past. Patient denies any history of DVTs, PEs. Patient denies shortness of breath or chest pain. Patient denies nausea, vomiting, or abdominal pain. Patient denies noticing any swelling in either lower extremity. Patient has no other complaints at this time. - Related Data Home Medications Medication Instructions Recorded Confirmed Multivitamins, Thera [Multivitamin] 1 tab PO QAM 11/24/13 07/23/17 Omeprazole [PriLOSEC] 20 mg PO BID PRN 11/24/13 07/23/17 Ascorbic Acid [Vitamin C] 500 mg PO DAILY 04/21/15 07/23/17 Amitriptyline HCl [Elavil] 50 mg PO QAM 06/26/17 07/23/17 Amitriptyline HCl [Elavil] 100 mg PO HS 06/26/17 07/23/17 Calcium Carbonate/Vitamin D3 2 each PO HS 06/26/17 07/23/17 [Caltrate 600 Plus D3 Tablet] Previous Rx's Medication Instructions Recorded Ibuprofen [Motrin] 200 mg PO TID #90 02/07/17 Cyclobenzaprine [Flexeril] 10 mg PO TID PRN #60 tab 04/04/17 Gabapentin [Neurontin] 600 mg PO TID #90 tablet 04/04/17 Hydrocodone/Acetaminophen [[place] 1 tab PO Q6H PRN #120 tablet 05/30/17 10-325] Allergies Allergy/AdvReac Type Severity Reaction Status Date / Time naproxen AdvReac Abdominal Verified 08/22/17 11:12 Pain Review of Systems ROS Statement: Those systems with pertinent positive or pertinent negative responses have been documented in the HPI. ROS Other: All systems not noted in ROS Statement are negative. Past Medical History Past Medical History: GERD/Reflux, Musculoskeletal Disorder, Skin Disorder Additional Past Medical History / Comment(s): HX RENAL CALCULUS. PSORIASIS History of Any Multi-Drug Resistant Organisms: None Reported Past Surgical History: Appendectomy, Back Surgery, Breast Surgery, Orthopedic Surgery Additional Past Surgical History / Comment(s): DANN BREAST AUGMENTATION, RT ELBOW , MULT PAIN CLINIC PROC Past Anesthesia/Blood Transfusion Reactions: No Reported Reaction Past Psychological History: Depression Smoking Status: Current every day smoker Past Alcohol Use History: None Reported Past Drug Use History: None Reported - Past Family History Mother Family Medical History: Cancer Sister(s) Family Medical History: Cancer, Pulmonary Embolus General Exam Limitations: no limitations Respiratory exam: Present: normal lung sounds bilaterally. Absent: respiratory distress, wheezes, rales, rhonchi, stridor Cardiovascular Exam: Present: regular rate, normal rhythm, normal heart sounds. Absent: systolic murmur, diastolic murmur, rubs, gallop, clicks Extremities exam: Present: full ROM, tenderness (Patient has mild tenderness in the right medial calf), normal capillary refill (Refill less than 2 seconds and lower extremities bilaterally), calf tenderness (Patient has mild right medial calf tenderness). Absent: pedal edema (No swelling noted in lower extremities) , joint swelling, other (Pedal pulse 2+ and lower extremities bilaterally. No swelling noted in the right lower exterminate. No excessive warmth to touch on the right lower extremity. Temperature of lower extremities is equal bilaterally.) Neurological exam: Present: alert Psychiatric exam: Present: normal affect, normal mood Course Vital Signs 08/22/17 11:09 Temperature 97.4 F L Pulse Rate 111 H Respiratory 16 Rate Blood Pressure 124/71 O2 Sat by Pulse 98 Oximetry Medical Decision Making - Medical Decision Making 57-year-old female presents to the emergency department for a chief complaint of right calf pain. Patient states she noticed tenderness in her right calf last night when she was walking. Patient denies pain in the calf before last night. She was expecting it to go away by this morning but did not. Patient denies any trauma or injury to the right extremity. Patient denies straining the muscle but states it was possible. Patient is concerned for DVT because her sister had 2 DVTs. Patient has no history of thrombosis. Patient denies tenderness in the right ankle, foot, tibia, or knee. Neurovascular status intact in the bilateral lower external remedies. There is no swelling or excessive warmth noted of the right lower extremity. Warmth of lower extremities is equal bilaterally. Physical exam is unremarkable. Ultrasound of the right lower extremity was obtained. Ultrasound is negative for DVT in the right leg. "No abnormality visualized at the patient's area of pain on the right calf." Patient likely strained her right calf muscle. Patient will use ibuprofen or Tylenol for pain relief. She will use the Rice method of therapy. She will return to the emergency Department if pain symptoms do not resolve or worsen or she develop shortness of breath.. She will follow up with primary care provider in one to 2 days. Disposition Clinical Impression: Pain of lower leg Disposition: HOME SELF-CARE Condition: Good Instructions: RICE Therapy (ED) Additional Instructions: Please use the Rice method of therapy and take ibuprofen or Tylenol for pain relief. Please return to the emergency department if you have worsening symptoms of pain or the pain does not resolve. Please return to the emergency department if you notice shortness of breath. Follow-up with primary care provider in one to 2 days. Referrals: Junie Juarez MD [Primary Care Provider] - 1-2 days
--- NOTE | 2017-08-22 12:21 | US ---
EXAMINATION TYPE: US venous doppler duplex LE RT DATE OF EXAM: 08/22/2017 12:07 PM COMPARISON: NONE CLINICAL HISTORY: Pain. Right calf pain SIDE PERFORMED: Right TECHNIQUE: The lower extremity deep venous system is examined utilizing real time linear array sonog jin with graded compression, doppler sonography and color-flow sonography. VESSELS IMAGED: External Iliac Vein (EIV) Common Femoral Vein Deep Femoral Vein Greater Saphenous Vein * Femoral Vein Popliteal Vein Small Saphenous Vein * Proximal Calf Veins (* superficial vessels) Right Leg: Negative for DVT No abnormality visualized at the patient's area of pain on the right calf. Grayscale, color doppler, spectral doppler imaging performed of the deep veins of the lower extremiti es. There is normal flow, compressibility, vascular waveforms. IMPRESSION: No evident deep venous thrombosis at or above the right knee.
[2017-08-22 12:59] VITALS: BP 120/78; PULSE 100; TEMP 97
== END 2017-08-22 12:58 | disposition home or self-care (01) ==
LOC: EC 10:41
DX: M79.661 Pain in right lower leg (principal); F32.9 Major depressive disorder, single episode, unspecified; F17.200 Nicotine dependence, unspecified, uncomplicated; Z79.899 Other long term (current) drug therapy; Z88.6 Allergy status to analgesic agent
CPT/HCPCS: 99283

== ENCOUNTER → 2017-08-23 | Outpatient (CLI) | payer BC ==
--- NOTE | 2017-08-23 12:42 | P.PN ---
Progress Note - Text Progress Note Date: 08/23/17 Patient returns for followup for back pain without significant radiation. Patient previously underwent bilateral lumbar RFA with good results and improvement in pain overall, and is now only using 2-3 On[place] pills per day. Patient continues on [place]/Flexeril/Elavil medications for pain with good relief. Patient denies adverse drug effects from medications. Today, pt denies new-onset weakness, bowel/bladder incontinence, or any other signs or symptoms of cauda equina syndrome. There are no signs of acute intoxication, and no indications of medication diversion or overuse. In addition to above, 13-point review of systems is also negative for chest pain , shortness of breath, changes in vision, changes in hearing, new onset weakness , abdominal pain, diarrhea, extreme fatigue, malaise, fever, skin changes, homicidal or suicidal ideation, or bowel or bladder incontinence. Vital Signs: Reviewed in EMR Gen: WDWN, AAOx3, NAD HEENT: NCAT, EOMI, hearing grossly normal Pulm: resp unlabored Abd: soft, NT, ND Neck: supple, trachea midline ROM in flexion lumbar spine: reduced ROM in extension lumbar spine: reduced Lumbar paravertebral tenderness: + Facet loading: + bilateral, reduced Lower extremity: strength grossly intact Neuro: CN II-XII grossly intact, muscle strength lower extremities PRESERVED Imaging: Reviewed in EMR Assessment: 1. lumbar spondylosis without myelopathy 2. lumbar DDD 3. lumbar postlaminectomy syndrome 4. chronic pain syndrome Plan: 1. Explanation: Opioid and psychological risk scores were reviewed. Diagnoses , prognoses, and multiple treatment options including but not limited to physical therapy, interventional therapies, adjuvant medical therapies, narcotic medication therapies, and surgery were discussed with the patient and all questions were answered to the patient's satisfaction. 2. Opioid agreement: Patient has previously signed narcotic agreement, and was orally counseled to not overuse, abuse, divert, or cell medications, and to take them as prescribed by only 1 healthcare provider. The patient was also counseled to store opioid medications in a safe and preferably locked location. Patient was also counseled against driving while using narcotic medications and also to not use alcohol or any illicit or recreational drugs. The patient verbalized understanding that lack of compliance with any of the above and likely result in failure to renew narcotic prescriptions, possible discharge from the clinic, and possible legal ramifications thereafter if indicated. 3. Counseling: The patient was counseled extensively on BODY MASS INDEX, EXERCISE. Specifically, the patient was instructed regarding the importance of obesity, and exercise in the context of both chronic pain and overall health. 4. Procedures: none for now 5. Consultations: None 6. Investigations: None 7. Medications: Reduce Onawa to TID; [place] 10/325 #60 with no refill (patient did not fill previous script for #120 yet, so that previous #120 + new #60 = # 180 which is enough for two months' supply if taken three times per day). 8. Disposition: f/u for re-eval in 8 weeks PQRS measures: 1-Patient's medications are documented in the chart. 2-Tobacco use is negative 3-Patient has not had a pneumococcal vaccine. 4-Advanced care planning discussed, patient unable to give. 5-Opioid contract signed with the patient. 6-Pain positive, follow-up visit or procedure scheduled 7-Patient's blood pressure measured and documented, WNL. 8-Patient's weight was measured, and body mass index within the normal limits 9-Patient WAS NOT identified as an unhealthy alcohol user.
[2017-08-23 12:43] VITALS: BP 121/83; PULSE 104; RESP 16; TEMP 97.5
== END | disposition home or self-care (01) ==
LOC: PNWHC3 12:07
PROVIDERS: ATTEND Anesthesiology
DX: G89.4 Chronic pain syndrome (principal); M51.36 Other intervertebral disc degeneration, lumbar region; M47.816 Spondylosis without myelopathy or radiculopathy, lumbar region; M96.1 Postlaminectomy syndrome, not elsewhere classified; Z79.891 Long term (current) use of opiate analgesic
CPT/HCPCS: 99211

== ENCOUNTER 2017-10-08 18:53 | Emergency (ER) | payer BC ==
[2017-10-08 18:59] VITALS: RESP 18
[2017-10-08] MEDS ORDERED: SODIUM CHLORIDE 0.9% 1,000 ML IV STA (19:13)
[2017-10-08] MEDS ORDERED: PANTOPRAZOLE 40 MG/10 ML VIAL IVP STA (19:13)
[2017-10-08] MEDS ORDERED: ONDANSETRON 4 MG/2 ML VIAL IVP STA (19:13)
[2017-10-08] MEDS ORDERED: SODIUM CHLORIDE 0.9% 500 ML IV STA (19:13)
[2017-10-08] MEDS ORDERED: MAG HYDROX/AL HYDROX/SIMETH 30 ML, HYOSCYAMINE ELIXIR 10 ML, CIMETIDINE HCL 300 MG, LID... PO STA ×4 (19:15)
--- NOTE | 2017-10-08 19:24 | ED ---
General Adult HPI - General Chief complaint: GI Bleed Stated complaint: GI bleed Time Seen by Provider: 10/08/17 19:06 Source: patient Mode of arrival: ambulatory Limitations: no limitations - History of Present Illness Initial comments: This 57-year-old white female presents with a complaint of some nausea and vomiting. She states that she vomited a a small amount on 3 different occasions since 3 PM today. She states that the vomitus was somewhat dark in color. She also complains of some midepigastric abdominal pain. She denies any diarrhea, constipation, fevers, chills. She denies any urinary complaints. She denies any previous similar incidents. She apparently had an episode years ago of some rectal bleeding after taking some Naprosyn. She does have chronic back pain issues and over the past several weeks has been taking Motrin 600 mg twice a day. She had increase the dose several weeks ago as well. She does relate a history of gas esophageal reflux disorder but denies any history of gastritis or peptic ulcer disease. She does not take any medicine for her reflux. No other complaints or modifying factors. - Related Data Home Medications Medication Instructions Recorded Confirmed Multivitamins, Thera [Multivitamin] 1 tab PO QAM 11/24/13 10/08/17 Calcium Carbonate/Vitamin D3 2 tab PO HS 06/26/17 10/08/17 [Caltrate 600 Plus D3 Tablet] Ibuprofen [Motrin] 600 mg PO DAILY 08/23/17 10/08/17 Ibuprofen [Motrin Ib] 400 - 600 mg PO DAILY@1400 10/08/17 10/08/17 Previous Rx's Medication Instructions Recorded Amitriptyline HCl [Elavil] 50 mg PO QAM #30 tab 08/23/17 Amitriptyline HCl [Elavil] 100 mg PO HS #60 tab 08/23/17 Cyclobenzaprine [Flexeril] 10 mg PO TID PRN #60 tab 08/23/17 Gabapentin [Neurontin] 600 mg PO TID #90 tablet 08/23/17 Hydrocodone/Acetaminophen [[place] 1 tab PO Q8H PRN #60 tab 08/23/17 10-325] Omeprazole [PriLOSEC] 40 mg PO DAILY #30 capsule. 10/08/17 Ondansetron [Zofran ODT] 8 mg PO Q8HR PRN #12 tab 10/08/17 Allergies Allergy/AdvReac Type Severity Reaction Status Date / Time ibuprofen [From Motrin] AdvReac Nausea & Verified 10/08/17 19:35 Vomiting naproxen AdvReac Abdominal Verified 10/08/17 19:35 Pain Review of Systems ROS Statement: Those systems with pertinent positive or pertinent negative responses have been documented in the HPI. ROS Other: All systems not noted in ROS Statement are negative. Past Medical History Past Medical History: GERD/Reflux, Musculoskeletal Disorder, Skin Disorder Additional Past Medical History / Comment(s): HX RENAL CALCULUS. PSORIASIS History of Any Multi-Drug Resistant Organisms: None Reported Past Surgical History: Appendectomy, Back Surgery, Breast Surgery, Orthopedic Surgery Additional Past Surgical History / Comment(s): DANN BREAST AUGMENTATION, RT ELBOW , MULT PAIN CLINIC PROC Past Anesthesia/Blood Transfusion Reactions: No Reported Reaction Past Psychological History: Depression Smoking Status: Current every day smoker Past Alcohol Use History: Rare Past Drug Use History: None Reported - Past Family History Mother Family Medical History: Cancer Sister(s) Family Medical History: Cancer, Pulmonary Embolus General Exam - General Exam Comments Initial Comments: GENERAL: The patient is well nourished and well hydrated. VITAL SIGNS: Heart rate, blood pressure, respiratory rate reviewed as recorded in nurse's notes. EYES: Pupils are round and reactive. Extraocular movements are intact. No conjunctival / lid redness or swelling. ENT: No external evidence of injury, swelling, or ecchymosis. Airway is patent. Throat is clear. NECK: Nontender. No swelling or evidence of injury. No subcutaneous emphysema. Trachea is midline. No thyroid mass. HEART: Regular rate and rhythm. Good peripheral pulses. LUNGS/CHEST: Breath sounds clear and equal bilaterally. No rales, rhonchi, or wheezes. No ecchymosis, subcutaneous emphysema, or tenderness. ABDOMEN: There is some mild tenderness in the midepigastric region. No palpable masses or organomegaly. No peritoneal signs. No abdominal wall swelling or ecchymosis. EXTREMITIES: No extremity tenderness. Normal muscle tone and function. No thoracolumbar tenderness. NEUROLOGIC: Sensation is grossly intact. Cranial nerve exam reveals face is symmetrical, tongue is midline, speech is clear. SKIN: No abrasions or ecchymosis is noted. No induration or masses noted. PSYCHIATRIC: Alert and oriented. Appropriate behavior and judgment. Limitations: no limitations Course Vital Signs 10/08/17 18:57 Temperature 98.3 F Pulse Rate 100 Respiratory 18 Rate Blood Pressure 132/59 O2 Sat by Pulse 98 Oximetry Medical Decision Making - Medical Decision Making The patient was seen and examined. All diagnostics were reviewed. An IV was established and she is hydrated. She receives some Protonix as well as some Zofran intravenously. She also received a GI cocktail. The EKG shows a normal sinus rhythm at a rate of 87. There is no acute ST-T wave changes noted. The AL intervals 128, QRS duration is 86, and the QTC intervals 459. The laboratory is reviewed and is also essentially within normal limits with a normal hemoglobin. The acute abdominal series does not show any acute processes. This felt that she likely does have a NSAID-induced gastritis and she is instructed to stop utilizing the Motrin. It is possible that she may have had some gastrointestinal bleeding from the Motrin. It is felt as though she should stop utilizing Motrin or Aleve/Naprosyn for the rest of her life. It is also felt as though she would benefit from additional medications like Prilosec. We'll also place her on some Zofran. Return parameters discussed in detail but it is felt as though she stable for discharge and leaves in no identifiable distress. - Lab Data Result diagrams: 10/08/17 19:27 10/08/17 19:27 Lab Results 10/08/17 10/08/17 10/08/17 Range/Units 19:27 19:27 19:27 WBC 7.8 (3.8-10.6) k/uL RBC 4.65 (3.80-5.40) m/uL Hgb 13.9 (11.4-16.0) gm/dL Hct 41.3 (34.0-46.0) % MCV 88.8 (80.0-100.0) fL MCH 29.9 (25.0-35.0) pg MCHC 33.7 (31.0-37.0) g/dL RDW 13.7 (11.5-15.5) % Plt Count 211 (150-450) k/uL Neutrophils % 69 % Lymphocytes % 21 % Monocytes % 5 % Eosinophils % 3 % Basophils % 1 % Neutrophils # 5.4 (1.3-7.7) k/uL Lymphocytes # 1.6 (1.0-4.8) k/uL Monocytes # 0.4 (0-1.0) k/uL Eosinophils # 0.2 (0-0.7) k/uL Basophils # 0.1 (0-0.2) k/uL PT 9.9 (9.0-12.0) sec INR 1.0 (<1.2) APTT 23.3 (22.0-30.0) sec Sodium 142 (137-145) mmol/L Potassium 4.1 (3.5-5.1) mmol/L Chloride 106 (98-107) mmol/L Carbon Dioxide 23 (22-30) mmol/L Anion Gap 13 mmol/L BUN 15 (7-17) mg/dL Creatinine 0.75 (0.52-1.04) mg/dL Est GFR (CKD-EPI)AfAm >90 (>60 ml/min/1.73 sqM) Est GFR (CKD-EPI)NonAf 88 (>60 ml/min/1.73 sqM) Glucose 89 (74-99) mg/dL Calcium 9.6 (8.4-10.2) mg/dL Total Bilirubin 0.5 (0.2-1.3) mg/dL AST 21 (14-36) U/L ALT 28 (9-52) U/L Alkaline Phosphatase 110 (38-126) U/L Total Protein 6.9 (6.3-8.2) g/dL Albumin 4.5 (3.5-5.0) g/dL Amylase 76 (30-110) U/L Lipase 39 (23-300) U/L Blood Type Blood Type Confirm Blood Type Recheck Antibody Screen Spec Expiration Date 10/08/17 10/08/17 Range/Units 19:27 19:27 WBC (3.8-10.6) k/uL RBC (3.80-5.40) m/uL Hgb (11.4-16.0) gm/dL Hct (34.0-46.0) % MCV (80.0-100.0) fL MCH (25.0-35.0) pg MCHC (31.0-37.0) g/dL RDW (11.5-15.5) % Plt Count (150-450) k/uL Neutrophils % % Lymphocytes % % Monocytes % % Eosinophils % % Basophils % % Neutrophils # (1.3-7.7) k/uL Lymphocytes # (1.0-4.8) k/uL Monocytes # (0-1.0) k/uL Eosinophils # (0-0.7) k/uL Basophils # (0-0.2) k/uL PT (9.0-12.0) sec INR (<1.2) APTT (22.0-30.0) sec Sodium (137-145) mmol/L Potassium (3.5-5.1) mmol/L Chloride (98-107) mmol/L Carbon Dioxide (22-30) mmol/L Anion Gap mmol/L BUN (7-17) mg/dL Creatinine (0.52-1.04) mg/dL Est GFR (CKD-EPI)AfAm (>60 ml/min/1.73 sqM) Est GFR (CKD-EPI)NonAf (>60 ml/min/1.73 sqM) Glucose (74-99) mg/dL Calcium (8.4-10.2) mg/dL Total Bilirubin (0.2-1.3) mg/dL AST (14-36) U/L ALT (9-52) U/L Alkaline Phosphatase (38-126) U/L Total Protein (6.3-8.2) g/dL Albumin (3.5-5.0) g/dL Amylase (30-110) U/L Lipase (23-300) U/L Blood Type A Positive Blood Type Confirm A Positive Blood Type Recheck CABO Indicated Antibody Screen NEGATIVE Spec Expiration Date 10/11/20172326 Disposition Clinical Impression: Abdominal pain, Nausea and vomiting, Gastritis, Chronic back pain Disposition: HOME SELF-CARE Condition: Good Instructions: Abdominal Pain (ED), Gastritis (ED) Additional Instructions: Please follow-up with Dr. Graves for a possible EGD scope. Please avoid any ibuprofen or Naprosyn for the remainder of your life as this could be causing your current symptomatology. Prescriptions: Omeprazole [PriLOSEC] 40 mg PO DAILY #30 capsule. Ondansetron [Zofran ODT] 8 mg PO Q8HR PRN #12 tab PRN Reason: Nausea Is patient prescribed a controlled substance at d/c from ED?: No Referrals: Junie Juarez MD [Primary Care Provider] - 1-2 days Andra Graves MD [STAFF PHYSICIAN] - As Soon As Possible Time of Disposition: 21:17
[2017-10-08 19:42] LABS: Basophils # (A) 0.1 k/uL (0-0.2); Basophils % (A) 1 %; Eosinophils # (A) 0.2 k/uL (0-0.7); Eosinophils % (A) 3 %; HCT 41.3 % (34.0-46.0); HGB 13.9 gm/dL (11.4-16.0); Lymphocytes # (A) 1.6 k/uL (1.0-4.8); Lymphocytes % (A) 21 %; MCH 29.9 pg (25.0-35.0); MCHC 33.7 g/dL (31.0-37.0); MCV 88.8 fL (80.0-100.0); Mean Platelet Volume 8.1; Monocytes # (A) 0.4 k/uL (0-1.0); Monocytes % (A) 5 %; Neutrophils # (A) 5.4 k/uL (1.3-7.7); Neutrophils % (A) 69 %; Platelet Count 211 k/uL (150-450); RBC 4.65 m/uL (3.80-5.40); RDW 13.7 % (11.5-15.5); WBC 7.8 k/uL (3.8-10.6)
[2017-10-08 19:48] LABS: Partial Thromboplastin Time 23.3 sec (22.0-30.0); Prothrombin Time 9.9 sec (9.0-12.0)
[2017-10-08 19:54] LABS: ALT 28 U/L (9-52); AST 21 U/L (14-36); Albumin 4.5 g/dL (3.5-5.0); Alkaline Phosphatase 110 U/L (38-126); Amylase 76 U/L (30-110); Anion Gap 13 mmol/L; Blood Urea Nitrogen 15 mg/dL (7-17); Calcium 9.6 mg/dL (8.4-10.2); Carbon Dioxide 23 mmol/L (22-30); Chloride 106 mmol/L (98-107); Glucose 89 mg/dL (74-99); Lipase 39 U/L (23-300); Potassium 4.1 mmol/L (3.5-5.1); Sodium 142 mmol/L (137-145); Total Bilirubin 0.5 mg/dL (0.2-1.3); Total Protein 6.9 g/dL (6.3-8.2)
--- NOTE | 2017-10-08 21:01 | XR ---
EXAMINATION TYPE: XR abdomen acute w cxr, 3 views total DATE OF EXAM: 10/08/2017 COMPARISON: NONE HISTORY: Coffee-ground emesis and upper abdominal pain TECHNIQUE: Supine, upright, and left side down lateral decubitus views of the abdomen are obtained. FINDINGS: CHEST: The lungs are clear and the pleural spaces are negative. Cardiomediastinal silhouette and bone s and soft tissues are unremarkable. SUPINE AND UPRIGHT ABDOMINAL PELVIC VIEWS: There is no evidence for pneumoperitoneum. The bowel gas pattern is unremarkable as there is air throughout nondilated small and large bowel. No sizeable air fluid levels. There is abundant stool throughout the colon. There is no evidence of mass or mass effe ct or unusual calcifications. IMPRESSION: No acute radiographic process, although pancolonic excessive stool noted.
[2017-10-08 21:28] VITALS: BP 130/60; PULSE 89; TEMP 97
== END 2017-10-08 21:28 | disposition home or self-care (01) ==
LOC: EC 18:53
DX: K29.70 Gastritis, unspecified, without bleeding (principal); M54.9 Dorsalgia, unspecified; G89.29 Other chronic pain; K21.9 Gastro-esophageal reflux disease without esophagitis; Z87.39 Personal history of other diseases of the musculoskeletal system and connective tissue; F17.200 Nicotine dependence, unspecified, uncomplicated; Z79.1 Long term (current) use of non-steroidal anti-inflammatories (NSAID); Z79.899 Other long term (current) drug therapy; Z88.6 Allergy status to analgesic agent
CPT/HCPCS: 99284; 96374; 96375; 96361; 36415; 93005; 86900; 86901; 80053; 82150; 83690; 85025; 85610; 85730; 86850; 74022; J2405; C9113

== ENCOUNTER → 2017-10-18 | Outpatient (CLI) | payer BC ==
[2017-10-18 12:31] VITALS: BP 108/78; PULSE 106; RESP 18
--- NOTE | 2017-10-18 12:58 | P.PAINPG ---
Subjective Progress Note Date: 10/18/17 Principal diagnosis: Post laminectomy syndrome, myofascial pain syndrome This is a pleasant 57-year-old woman with a history of back pain and previous back surgery. She complains mainly of pain in her low back. She is undergone radio frequency ablation and this afforded her significant relief. She recently had a gastrointestinal bleed and was treated in the emergency center for this. She is scheduled to undergo further gastrointestinal workup. She has discontinued her Motrin as it was felt this was what caused her problem. She denies bowel or bladder dysfunction or any lumbar radicular symptoms. Objective - Vital Signs Vital signs: Vital Signs Temp Pulse 106 H 10/18/17 12:24 Resp 18 10/18/17 12:24 BP 108/78 10/18/17 12:24 Pulse Ox 96 10/18/17 12:24 Intake & Output 10/17/17 10/18/17 10/18/17 18:59 06:59 18:59 Weight 61.235 kg - Exam General: The patient is alert and oriented. Patient is not sedateded Patient is a question appropriately. Cardiac: Heart is regular in rate and rhythm Respiratory: Clear to auscultation. No audible wheezes. Abdomen: Soft nontender nondistended. Lower extremities: Strength is normal bilaterally. Sensation is normal bilaterally. Reflexes are preserved and symmetric bilaterally. Straight leg raise is negative bilaterally. Significant trigger points and muscle tightness are present in the lumbar spine bilaterally. Range of back flexion is decreased. Assessment and Plan (1) Myofascial pain syndrome Current Visit: Yes Status: Acute Code(s): M79.1 - MYALGIA SNOMED Code(s): 208641184 (2) Post laminectomy syndrome Current Visit: Yes Status: Acute Code(s): M96.1 - POSTLAMINECTOMY SYNDROME, NOT ELSEWHERE CLASSIFIED SNOMED Code(s): 68903378 Plan: Plan of Care 1. Medications: I will refill the patient's Bonner today. She reports that this medication is significantly helpful reducing her pain. I will not write her for any NSAIDs today. She was requesting a perception for Celebrex. I believe this is contraindicated given her recent history of gastrointestinal bleed. I will also refill her Flexeril and gabapentin as she feels these are helpful. I have reviewed the patient's MAPS report and it reveals expected results. Patient has signed an opiate agreement as well as opiate consent for treatment in our clinic. They understand the risks and benefits of opiate medications. They are aware of the potential for addiction. 2. Interventions: Further interventions are indicated this time. She could present for repeat of radiofrequency ablation in the future for her lumbar spine. 3. Referrals: None 4. Testing: None 5. Psychological: Was tearful during today's evaluation. I offered to refer her to mental health specialist. I explained to her BE helpful. She declined this referral today. PQRS Measure Charge Sheet PQRS Narrative: Smoking Status Current every day smoker Do You Want the Pneumonia No Vaccine AT THIS TIME? Narcotic Agreement Date Signed 04/04/17 Blood Pressure 108/78 Pain Intensity [Lower Back] 4 Scale Used Numeric (1 - 10) Hx Alcohol Use (MH) Yes: rare Home Medications: Ambulatory Orders Multivitamins, Thera [Multivitamin] 1 tab PO QAM 11/24/13 Calcium Carbonate/Vitamin D3 [Caltrate 600 Plus D3 Tablet] 2 tab PO HS 06/26/17 Amitriptyline HCl [Elavil] 100 mg PO HS #60 tab 08/23/17 Omeprazole [PriLOSEC] 40 mg PO DAILY #30 capsule. 10/08/17 Ondansetron [Zofran ODT] 8 mg PO Q8HR PRN #12 tab 10/08/17 Amitriptyline HCl [Elavil] 50 mg PO QAM #30 tab 10/18/17 Cyclobenzaprine [Flexeril] 10 mg PO TID PRN #60 tab 10/18/17 Gabapentin [Neurontin] 600 mg PO TID #90 tablet 10/18/17 HYDROcodone/APAP 10-325MG [Bonner 10-325] 1 tab PO Q4HR PRN 30 Days #60 tab 10/18 Omeprazole [PriLOSEC] 1 tab PO DAILY 10/18/17 Controlled Substance Measures - Controlled Substance Measures Is patient prescribed a controlled substance at discharge?: Yes When asked, does pt state using other controlled substances?: No If prescribed controlled substance>3 days was MAPS reviewed?: Yes If Rx opioid, was Start Talking consent form obtained?: No If opioid is for acute pain is fill amount 7 days or less?: Yes Was information provided regarding opioid addiction?: Yes
== END | disposition home or self-care (01) ==
LOC: PNWHC3 11:41
PROVIDERS: ATTEND Pain Medicine Pain Medicine
DX: M79.1 Myalgia (principal); M96.1 Postlaminectomy syndrome, not elsewhere classified; Z79.899 Other long term (current) drug therapy
CPT/HCPCS: 99211

== ENCOUNTER → 2017-12-13 | Outpatient (CLI) | payer BC ==
[2017-12-13 13:00] VITALS: BP 137/80; PULSE 82; RESP 18
--- NOTE | 2017-12-13 13:30 | P.PAINPG ---
Subjective Progress Note Date: 12/13/17 This is follow-up visit for this patient with a history of severe and chronic low back pain secondary to lumbar back surgery syndrome, lumbar facet arthropathy, We have done an interventional pain procedure radiofrequency ablation of the medial branch lumbar area The patient currently on [place] 10/325 every 8 hours, Neurontin 600 mg 3 times a day, amitriptyline 50 mg every morning 100 mg daily at bedtime, Flexeril 10 mg 3 times a day Patient denies any side effect of the medication , patient denies any excessive drowsiness or sleepiness, patient denies any suicidal ideation, Patient reported that the current medication is helping to control the pain and improve the activity of daily livings, Patient denies any motor or sensory deficit, denies any change in the bowel movement or urination, patient denies any fever or night sweats. Patient here today for follow-up visit and medication refill Objective - Vital Signs Vital signs: Vital Signs Temp Pulse 82 12/13/17 12:53 Resp 18 12/13/17 12:53 BP 137/80 12/13/17 12:53 Pulse Ox 99 12/13/17 12:53 Intake & Output 12/12/17 12/13/17 12/13/17 18:59 06:59 18:59 Weight 58.967 kg - Exam Physical Examinations : 1-Constitutiona : Cooperative , not in acute distress . 2-HEENT : nech ; supple , no Lymphadenopathy , normal thyroid size . eyes : no ptosis , no icterus , no photophobia . ENT : normal of hearing , normal oropharynx , no Thrush . 3- Respiratory : Chest clear to auscultations Bilaterally , no wheezing , no Rhonchi . 4- Cardiovascular : regular rate and rhythem , S1 , S2 , no S3 , no S4. 5- Gastrointestinal : abdomen soft no tenderness , bowel sounds , no organomegally . 6- Genitourinary : Defferred . 7- neurologic : Cranial nerve II to XII intact , no focal neurological deffecit . 8-psychatric : alert , oriented X 3 , appropriate affect , intact judgment and insight . 9-Lymphatic : no Lymphadenopathy . 10- musculoskeltal : , Lumber spine = lumber facet Loading Test positive strait leg raising test positive at 30 degree Right , positve at 30 degree Left Fabere test positive Right and positive Left Normal motor strength ,and normal sensation Assessment and Plan Plan: Assessment and plan= chronic low back pain secondary to lumbar failed back surgery syndrome , lumbar spondylosis with lumbar facet arthropathy . chronic and current use of high-risk medication (opioids) Patient denies any side effects of the current pain medication and the current treatment/medication helping the patient to do activity of daily living , Diagnoses, prognosis, treatment options, including but not limited to physical therapy, medication management, interventional therapies, and surgery, were discussed with the patient All the questions answered The narcotic consent was signed and patient agreed and understood the side effects and complications of opioid treatment. Patient signed the narcotic agreement, and was orally counseled, not to overuse, not to abuse, not to Divert , not tp sell pain medication, and to take it as prescribed only, Patient was counseled not to drive or operate heavy equipment while using narcotic medication, and advised not to use alcohol or any Illicit drugs while using the narcotis, the patient's verbalized understanding that lack of compliance with any of the above instructions, will likely to cause discharge from, the pain service, not to renew his narcotic prescriptions Medication managements= patient will be given prescription refills for [place] 10/325 every 8 hours dispense 90 with 1 refill, amitriptyline 50 mg daily in a.m. dispense 30 with one refill Amitriptyline 100 mg daily at bedtime dispense 30 with one refill, Neurontin 600 mg 3 times a day dispense 90 with 1 refill, Flexeril 10 mg 3 times a day dispensed 90 with one refill, patient reported that her pain increased over the last few weeks, she is moving to a new house and she has to do a lot of packing and unpacking a lot of physical work , I will start patient on Mobic 7.5 mg twice a day for one month, patient had a history of a GI bleed in the past but her insurance does not cover Celebrex , PQRS Measure Charge Sheet Measure #130: Documentation of Current Meds in Medical Chart: Patient's medications documented in chart Measure #226: Tobacco Use: Screen & Cessation Intervention: Pt screened for tobacco use AND intervention given Measure #111: Pneumonia Vaccination: Pneumococcal vaccine NOT administered or previously given Measure #47: Advance Care Plan: Advance care planning discussed & documented, plan or surrogate given Measure #412: Opioid Treatment Agreement: Documented signed opioid trtmnt agreemnt min once during opioid trtmnt Measure #408: Opioid Therapy Follow-up Evaluation: Patient had f/u eval minimum every 3 months during opioid therapy Measure #317: Preventitive Care & Scrn High Bld Press & F/U: Pre-hypertensive or hypertensive BP documented, pt will f/u with PCP Measure #128: Body Mass Index (BMI) Screening & Follow-up: BMI documented within normal parameters Measure #131: Pain Assessment & Follow-up: Pain positive & plan documented, Follow-up scheduled Measure #431: Unhealthy Alcohol Use Preventative Care & Scrn: Patient not identified as an unhealthy alcohol user PQRS Narrative: Smoking Status Current every day smoker Do You Want the Pneumonia No Vaccine AT THIS TIME? Narcotic Agreement Date Signed 04/04/17 Blood Pressure 137/80 Pain Intensity [Lower Back] 5 Scale Used Numeric (1 - 10) Hx Alcohol Use (MH) Yes: rare Home Medications: Ambulatory Orders Multivitamins, Thera [Multivitamin] 1 tab PO QAM 11/24/13 Calcium Carbonate/Vitamin D3 [Caltrate 600 Plus D3 Tablet] 2 tab PO HS 06/26/17 Omeprazole [PriLOSEC] 40 mg PO DAILY #30 capsule.dr 10/08/17 Ondansetron [Zofran ODT] 8 mg PO Q8HR PRN #12 tab 10/08/17 Cyclobenzaprine [Flexeril] 10 mg PO TID PRN #60 tab 10/18/17 Gabapentin [Neurontin] 600 mg PO TID #90 tablet 10/18/17 Omeprazole [PriLOSEC] 1 tab PO DAILY 10/18/17 Amitriptyline HCl [Elavil] 50 mg PO QAM #30 tab 12/13/17 Amitriptyline HCl [Elavil] 100 mg PO HS #60 tab 12/13/17 HYDROcodone/APAP 10-325MG [[place] 10-325] 1 tab PO Q4HR PRN 30 Days #60 tab 12/13 HYDROcodone/APAP 10-325MG [[place] 10-325] 1 tab PO Q8HR PRN 30 Days #90 tab 12/13 Meloxicam [Mobic] 7.5 mg PO BID #60 tab 12/13/17 Controlled Substance Measures - Controlled Substance Measures Is patient prescribed a controlled substance at discharge?: Yes When asked, does pt state using other controlled substances?: No If prescribed controlled substance>3 days was MAPS reviewed?: Yes If Rx opioid, was Start Talking consent form obtained?: Yes If opioid is for acute pain is fill amount 7 days or less?: No Was information provided regarding opioid addiction?: Yes
== END | disposition home or self-care (01) ==
LOC: PNWHC3 11:19
PROVIDERS: ATTEND Specialist
DX: G89.29 Other chronic pain (principal); M47.816 Spondylosis without myelopathy or radiculopathy, lumbar region; M46.96 Unspecified inflammatory spondylopathy, lumbar region; M96.1 Postlaminectomy syndrome, not elsewhere classified; M54.5 Low back pain; F17.200 Nicotine dependence, unspecified, uncomplicated; Z79.899 Other long term (current) drug therapy; Z79.891 Long term (current) use of opiate analgesic; Z79.1 Long term (current) use of non-steroidal anti-inflammatories (NSAID)
CPT/HCPCS: 99211

== ENCOUNTER → 2018-02-11 | Outpatient (CLI) | payer BC ==
[2018-02-11 11:55] VITALS: BP 121/83; PULSE 104; RESP 18
--- NOTE | 2018-02-11 12:49 | P.PN ---
Subjective Progress Note Date: 02/11/18 A 49-year-old female with history of failed back surgery syndrome and pain that goes across her lower back and down to the upper buttock area with tingling in both buttocks and the left knee. The patient takes Joffre 10 mg 3 times a day plus Neurontin and Flexeril and Motrin for her pain. She denies any new neurologic changes except for new tingling around her left knee. Today, pt denies new-onset weakness, bowel/bladder incontinence, or any other signs or symptoms of cauda equina syndrome. There are no signs of acute intoxication, and no indications of medication diversion or overuse. In addition to above, 13-point review of systems is also negative for chest pain , shortness of breath, changes in vision, changes in hearing, new onset weakness , abdominal pain, diarrhea, extreme fatigue, malaise, fever, skin changes, homicidal or suicidal ideation, or bowel or bladder incontinence. Vital Signs: Reviewed in EMR Gen: AAOx3, NAD HEENT: PERRLA,hearing grossly normal Pulm: resp unlabored,CTA Heart:S1,S2, No Mur Neck: supple, trachea midline Neuro exam of the lower extremities: Within normal limits Straight leg raising test: Negative Posture tenderness in the lumbar paravertebral area bilaterally Neuro: CN II-XII grossly intact, Imaging: Reviewed in EMR/chart Assessment: Lumbar failed back surgery syndrome Lumbar spondylosis without myelopathy Chronic pain syndrome and opioid dependence Plan: 1. Explanation: Opioid and psychological risk scores were reviewed. Diagnoses , prognoses, and multiple treatment options including but not limited to physical therapy, interventional therapies, adjuvant medical therapies, narcotic medication therapies, and surgery were discussed with the patient and all questions were answered to the patient's satisfaction. 2. Opioid agreement: Signed with the patient and the patient is warned not to use opioids while driving or before driving and not to combine opioids with benzodiazepines or alcohol. 3. Counseling: The patient was counseled extensively on SMOKING CESSATION, BODY MASS INDEX, EXERCISE. Specifically, the patient was instructed regarding the importance of smoking cessation, obesity, and exercise in the context of both chronic pain and overall health. 4. Procedures: schedule For left lumbar medial branch RFA since the patient had good response to it previously 5. Consultations: None 6. Investigations: None 7. Medications: Continue Joffre 10 mg 3 times a day , Motrin, Elavil and Flexeril 8. Disposition: Return to clinic in 8 weeks' and to the above-mentioned procedure sooner as 3 times a day, Motrin, and Elavil and Flexeril 9. Maps were reviewed and were appropriate. Objective - Vital Signs Vital signs: Vital Signs Temp Pulse 104 H 02/11/18 11:47 Resp 18 02/11/18 11:47 BP 121/83 02/11/18 11:47 Pulse Ox 98 02/11/18 11:47 Intake & Output 02/10/18 02/11/18 02/11/18 18:59 06:59 18:59 Weight 58.967 kg
== END | disposition home or self-care (01) ==
LOC: PNWHC3 10:41
PROVIDERS: ATTEND Anesthesiology
DX: G89.4 Chronic pain syndrome (principal); M96.1 Postlaminectomy syndrome, not elsewhere classified; M47.816 Spondylosis without myelopathy or radiculopathy, lumbar region; Z79.891 Long term (current) use of opiate analgesic; Z79.1 Long term (current) use of non-steroidal anti-inflammatories (NSAID); Z79.899 Other long term (current) drug therapy
CPT/HCPCS: 99211

== ENCOUNTER 2018-02-26 06:26 | Day surgery (SDC) | payer BC ==
[2018-02-25 10:43] VITALS: BMI 22.1
[2018-02-26 06:47] VITALS: TEMP 98.1
--- NOTE | 2018-02-26 07:37 | P.PCN ---
Date of Procedure: 02/26/18 Procedure(s) Performed: PREOPERATIVE DIAGNOSIS: 1-Lumbar Spondylosis with Facet Arthropathy without myelopathy. POSTOPERATIVE DIAGNOSIS: 1- Lumbar Spondylosis with Facet Arthropathy without myelopathy. PROCEDURES : Left Radiofrequency thermocoagulation, L3-L4, L4-L5, and L5-S1 medial branch, with fluoroscopic guidance ANESTHESIA: Moderate sedation with intravenous versed 2 mg and fentaneyl 100 mcg, and local infiltration with Ropivacaine 0.5 % . EBL: Minimal PROCEDURE INDICATION: The patient with low back pain secondary to lumbar facet arthropathy who had more than 50% relief of her pain with previous diagnostic lumbar medial branch block with bupivacaine.and she had very good results with the previous RFA of the lumbar area . PROCEDURE DESCRIPTION / TECHNIQUE: The patient was seen and identified in the preoperative area. Risks, benefits, complications, including but not limited to risk of infection ,bleeding , allergic reactions to the medications and no complete pain releife , and alternatives were discussed with the patient, the patient agreed to proceed with the procedure and signed the consent. IV was started. Vital signs remained stable throughout the procedure. Patient was taken to the OR and time out was completed. The patient was placed in the prone position on the procedure table. The lumber area was prepped and draped in the usual sterile fashion. . Vital signs were closely monitored during the procedure .IV sedation was used during the procedure to decrease patients anxiety. Using AP and then oblique fluoroscopy, the ``eye of the Manolo dog corresponding to the connection between the superior and transverse articular processes of left L3, L4, and L5 were identified, marked, and localized with 1 % lidocaine. Subsequently, a 18 [id number] radiofrequency cannula with a 10- mm active tip was advanced guided by fluoroscopy to each of the ``eyes of the Manolo dog at left L3, L4, and L5. Each site then underwent sensory testing at 50 Hz and 0 to 1 volt and motor testing at 2.5 Hz and 0 to 3 volt with local stimulation, but no radicular symptoms down the legs. Thereafter the left L3-4, L4-5, and L5-S1 sites underwent radiofrequency thermocoagulation at 80 degrees celsius for 90 seconds after injecting 0.5 ml of PF Ropivacaine 1ml then After the thermocoagulation done , 1 ml of the block solution containing Kenalog 40 mg and 3 ml of Ropivacaine 0.5% was injected at the left L3-4 , L4-5 , and L5-S1, levels after negative aspiration of CSF and blood and with no paresthesias. Cannulas were retracted while injecting lidocaine 1% until the needle is out. . At the end of the procedure, the skin was cleansed and bandages were applied. COMPLICATIONS: No acute complications. DISPOSITION / PLANS: The patient was placed in a supine position and transferred to the recovery area in a stable condition for observation and was discharged from the recovery room after meeting discharge criteria. Home discharge instructions given to the patient by the staff. The patient was reexamined prior to discharge. The patient will schedule a follow up in the clinic in 2-4 weeks.
[2018-02-26] MEDS ORDERED: IV FLUID CONTINUATION 1,000 ML IV ONE (07:41)
[2018-02-26 07:44] VITALS: PULSE 77; RESP 18
[2018-02-26 07:59] VITALS: BP 112/70
--- NOTE | 2018-02-26 08:35 | FL ---
Fluoroscopy HISTORY: Pain 7 seconds fluoroscopy time supplied to the referring clinician. 3 intraoperative C-arm images docume nt the procedure. See dictated report from anesthesia.
== END 2018-02-26 08:20 | disposition home or self-care (01) ==
LOC: ORPAIN 06:26
PROVIDERS: ATTEND Specialist
DX: M47.816 Spondylosis without myelopathy or radiculopathy, lumbar region (principal); Z88.6 Allergy status to analgesic agent
CPT/HCPCS: 64635; 64636 ×2; J2250; J3301; J3010; 99152

== ENCOUNTER → 2018-03-13 | Day surgery (SDC) | payer BC ==
[2018-03-11 08:39] VITALS: BMI 22.4
[~2018-03-13] MED LIST changes: -LACTATED RINGERS 1,000 ML IV SCH; +SODIUM CHLORIDE 0.9% 1,000 ML IV ONE
[2018-03-13 07:15] VITALS: TEMP 98
--- NOTE | 2018-03-13 08:35 | P.PCN ---
Date of Procedure: 03/13/18 Procedure(s) Performed: PREOPERATIVE DIAGNOSIS: 1-Lumbar Spondylosis with Facet Arthropathy without myelopathy. 2- Lumber degenerative disc disease POSTOPERATIVE DIAGNOSIS: 1- Lumbar Spondylosis with Facet Arthropathy without myelopathy. 2- Lumber degenerative disc disease PROCEDURES : Right Radiofrequency thermocoagulation, L3-L4, L4-L5, and L5-S1 medial branch, with fluoroscopic guidance ANESTHESIA: Moderate sedation with intravenous versed 2 mg and fentaneyl 100 mcg, and local infiltration with Ropivacaine 0.5 % . EBL: Minimal PROCEDURE INDICATION: The patient with low back pain secondary to lumbar facet arthropathy who had more than 50% relief of her pain with previous diagnostic lumbar medial branch block with bupivacaine. PROCEDURE DESCRIPTION / TECHNIQUE: The patient was seen and identified in the preoperative area. Risks, benefits, complications, including but not limited to risk of infection ,bleeding , allergic reactions to the medications and no complete pain releife , and alternatives were discussed with the patient, the patient agreed to proceed with the procedure and signed the consent. IV was started. Vital signs remained stable throughout the procedure. Patient was taken to the OR and time out was completed. The patient was placed in the prone position on the procedure table. The lumber area was prepped and draped in the usual sterile fashion. . Vital signs were closely monitored during the procedure .IV sedation was used during the procedure to decrease patients anxiety. Using AP and then oblique fluoroscopy, the ``eye of the Manolo dog corresponding to the connection between the superior and transverse articular processes of right L3, L4, and L5 were identified, marked, and localized with 1% lidocaine. Subsequently, a 18 [id number] radiofrequency cannula with a 10- mm active tip was advanced guided by fluoroscopy to each of the ``eyes of the Manolo dog at right L3, L4, and L5. Each site then underwent sensory testing at 50 Hz and 0 to 1 volt and motor testing at 2.5 Hz and 0 to 3 volt with local stimulation, but no radicular symptoms down the legs. Thereafter the right L3-4, L4-5, and L5-S1 sites underwent radiofrequency thermocoagulation at 80 degrees celsius for 90 seconds after injecting 0.5 ml of PF Ropivacaine 1ml , then After the thermocoagulation done , 1 ml of the block solution containing Kenalog 40 mg and 3 ml of Ropivacaine 0.5% was injected at the right L3-4 , L4-5 , and L5-S1, levels after negative aspiration of CSF and blood and with no paresthesias. Cannulas were retracted while injecting lidocaine 1% until the needle is out. At the end of the procedure, the skin was cleansed and bandages were applied. COMPLICATIONS: No acute complications. DISPOSITION / PLANS: The patient was placed in a supine position and transferred to the recovery area in a stable condition for observation and was discharged from the recovery room after meeting discharge criteria. Home discharge instructions given to the patient by the staff. The patient was reexamined prior to discharge. The patient will schedule a follow up in the clinic in 2-4 weeks.
[2018-03-13 09:11] VITALS: BP 128/76; PULSE 70; RESP 18
--- NOTE | 2018-03-13 10:40 | FL ---
Fluoroscopy HISTORY: Pain 5 seconds fluoroscopy time supplied to the referring clinician. 3 intraoperative C-arm images docume nt the procedure. See dictated report from anesthesia.
== END ==
LOC: ORPAIN 06:32
PROVIDERS: ATTEND Specialist
DX: M47.816 Spondylosis without myelopathy or radiculopathy, lumbar region (principal); M51.36 Other intervertebral disc degeneration, lumbar region
CPT/HCPCS: 64635; 64636; J2250; J3301; J3010; 99152

== ENCOUNTER → 2018-04-08 | Outpatient (CLI) | payer BC ==
[2018-04-08 13:40] VITALS: BP 125/87; PULSE 120; RESP 16
--- NOTE | 2018-04-08 14:11 | P.PN ---
Subjective Progress Note Date: 04/08/18 This is follow-up visit for this patient with a history of severe and chronic low back pain secondary to lumbar back surgery syndrome, lumbar facet arthropathy, We have done an interventional pain procedure radiofrequency ablation of the medial branch lumbar area The patient currently on [place] 10/325 every 8 hours, Neurontin 600 mg 3 times a day, amitriptyline 50 mg every morning 100 mg daily at bedtime, Flexeril 10 mg 3 times a day , And Motrin 3 times a day Patient denies any side effect of the medication , patient denies any excessive drowsiness or sleepiness, patient denies any suicidal ideation, Patient reported that the current medication is helping to control the pain and improve the activity of daily livings, Patient denies any motor or sensory deficit, denies any change in the bowel movement or urination, patient denies any fever or night sweats. Patient here today for follow-up visit and medication refill Physical Examinations : 1-Constitutiona : Cooperative , not in acute distress . 2-HEENT : nech ; supple , no Lymphadenopathy , normal thyroid size . eyes : no ptosis , no icterus , no photophobia . ENT : normal of hearing , normal oropharynx , no Thrush . 3- Respiratory : Chest clear to auscultations Bilaterally , no wheezing , no Rhonchi . 4- Cardiovascular : regular rate and rhythem , S1 , S2 , no S3 , no S4. 5- Gastrointestinal : abdomen soft no tenderness , bowel sounds , no organomegally . 6- Genitourinary : Defferred . 7- neurologic : Cranial nerve II to XII intact , no focal neurological deffecit . 8-psychatric : alert , oriented X 3 , appropriate affect , intact judgment and insight . 9-Lymphatic : no Lymphadenopathy . 10- musculoskeltal : , Lumber spine = lumber facet Loading Test positive strait leg raising test positive at 30 degree Right , positve at 30 degree Left Fabere test positive Right and positive Left Normal motor strength ,and normal sensation Assessment and plan= chronic low back pain secondary to lumbar failed back surgery syndrome , lumbar spondylosis with lumbar facet arthropathy . chronic and current use of high-risk medication (opioids) Patient denies any side effects of the current pain medication and the current treatment/medication helping the patient to do activity of daily living , Diagnoses, prognosis, treatment options, including but not limited to physical therapy, medication management, interventional therapies, and surgery, were discussed with the patient All the questions answered The narcotic consent was signed and patient agreed and understood the side effects and complications of opioid treatment. Patient signed the narcotic agreement, and was orally counseled, not to overuse, not to abuse, not to Divert , not tp sell pain medication, and to take it as prescribed only, Patient was counseled not to drive or operate heavy equipment while using narcotic medication, and advised not to use alcohol or any Illicit drugs while using the narcotis, understanding that lack of compliance with any of the above instructions, will likely to cause discharge from, the pain service, not to renew his narcotic prescriptions Medication managements= patient will be given prescription refills for [place] 10/325 every 8 hours dispense 90 with 1 refill, amitriptyline 50 mg daily in a.m. dispense 30 with one refill Amitriptyline 100 mg daily at bedtime dispense 30 with one refill, Neurontin 600 mg 3 times a day dispense 90 with 1 refill, Motrin 600 mg every 8 hours when necessary, and she will follow up with the pain clinic in 2 months , PQRS Measure Charge Sheet Measure #130: Documentation of Current Meds in Medical Chart: Patient's medications documented in chart Measure #226: Tobacco Use: Screen & Cessation Intervention: Pt screened for tobacco use AND intervention given Measure #111: Pneumonia Vaccination: Pneumococcal vaccine NOT administered or previously given Measure #47: Advance Care Plan: Advance care planning discussed & documented, plan or surrogate given Measure #412: Opioid Treatment Agreement: Documented signed opioid trtmnt agreemnt min once during opioid trtmnt Measure #408: Opioid Therapy Follow-up Evaluation: Patient had f/u eval minimum every 3 months during opioid therapy Measure #317: Preventitive Care & Scrn High Bld Press & F/U: Pre-hypertensive or hypertensive BP documented, pt will f/u with PCP Measure #128: Body Mass Index (BMI) Screening & Follow-up: BMI documented within normal parameters Measure #131: Pain Assessment & Follow-up: Pain positive & plan documented, Follow-up scheduled Measure #431: Unhealthy Alcohol Use Preventative Care & Scrn: Patient not identified as an unhealthy alcohol user PQRS Narrative: Objective - Vital Signs Vital signs: Vital Signs Temp Pulse 120 H 11/12/18 13:32 Resp 16 04/08/18 13:32 BP 125/87 04/08/18 13:32 Pulse Ox Intake & Output 04/07/18 04/08/18 04/08/18 18:59 06:59 18:59 Weight 58.967 kg
== END | disposition home or self-care (01) ==
LOC: PNWHC3 12:02
PROVIDERS: ATTEND Specialist
DX: G89.29 Other chronic pain (principal); M96.1 Postlaminectomy syndrome, not elsewhere classified; M47.816 Spondylosis without myelopathy or radiculopathy, lumbar region; M46.96 Unspecified inflammatory spondylopathy, lumbar region; Z79.891 Long term (current) use of opiate analgesic; Z79.899 Other long term (current) drug therapy
CPT/HCPCS: 80307; 99211; G0482

== ENCOUNTER → 2018-06-03 | Outpatient (CLI) | payer BC ==
[2018-06-03 12:16] VITALS: BP 133/82; PULSE 98; RESP 16
--- NOTE | 2018-06-03 13:08 | P.PN ---
Subjective Progress Note Date: 06/03/18 This is follow-up visit for this patient with a history of severe and chronic low back pain secondary to lumbar back surgery syndrome, lumbar facet arthropathy, We have done an interventional pain procedure radiofrequency ablation of the medial branch lumbar area The patient currently on [place] 10/325 every 8 hours, Neurontin 600 mg 3 times a day, amitriptyline 50 mg every morning 100 mg daily at bedtime, Flexeril 10 mg 3 times a day , And Motrin 3 times a day Patient denies any side effect of the medication , patient denies any excessive drowsiness or sleepiness, patient denies any suicidal ideation, Patient reported that the current medication is helping to control the pain and improve the activity of daily livings, Patient denies any motor or sensory deficit, denies any change in the bowel movement or urination, patient denies any fever or night sweats. Patient here today for follow-up visit and medication refill Physical Examinations : 1-[place]stitutiona : Cooperative , not in acute distress . 2-HEENT : nech ; supple , no Lymphadenopathy , normal thyroid size . eyes : no ptosis , no icterus , no photophobia . ENT : normal of hearing , normal oropharynx , no Thrush . 3- Respiratory : Chest clear to auscultations Bilaterally , no wheezing , no Rhonchi . 4- Cardiovascular : regular rate and rhythem , S1 , S2 , no S3 , no S4. 5- Gastrointestinal : abdomen soft no tenderness , bowel sounds , no organomegally . 6- Genitourinary : Defferred . 7- neurologic : Cranial nerve II to XII intact , no focal neurological deffecit . 8-psychatric : alert , oriented X 3 , appropriate affect , intact judgment and insight . 9-Lymphatic : no Lymphadenopathy . 10- musculoskeltal : , Lumber spine = lumber facet Loading Test positive strait leg raising test positive at 30 degree Right , positve at 30 degree Left Fabere test positive Right and positive Left Normal motor strength ,and normal sensation Assessment and plan= chronic low back pain secondary to lumbar failed back surgery syndrome , lumbar spondylosis with lumbar facet arthropathy . chronic and current use of high-risk medication (opioids) Patient denies any side effects of the current pain medication and the current treatment/medication helping the patient to do activity of daily living , Diagnoses, prognosis, treatment options, including but not limited to physical therapy, medication management, interventional therapies, and surgery, were discussed with the patient All the questions answered The narcotic consent was signed and patient agreed and understood the side effects and complications of opioid treatment. Patient signed the narcotic agreement, and was orally counseled, not to overuse, not to abuse, not to Divert , not tp sell pain medication, and to take it as prescribed only, Patient was counseled not to drive or operate heavy equipment while using narcotic medication, and advised not to use alcohol or any Illicit drugs while using the narcotis, understanding that lack of compliance with any of the above instructions, will likely to cause discharge from, the pain service, not to renew his narcotic prescriptions Medication managements= patient will be given prescription refills for [place] 10/325 every 8 hours dispense 90 with 1 refill, amitriptyline 50 mg daily in a.m. dispense 30 with one refill Amitriptyline 100 mg daily at bedtime dispense 30 with one refill, Neurontin 600 mg 3 times a day dispense 90 with 1 refill, Motrin 600 mg every 8 hours when necessary, and she will follow up with the pain clinic in 2 months Urine drug screen was ordered a few months ago and it was appropriate, MAPS reviewed and it was appropriate , PQRS Measure Charge Sheet Measure #130: Documentation of Current Meds in Medical Chart: Patient's medications documented in chart Measure #226: Tobacco Use: Screen & Cessation Intervention: Pt screened for tobacco use AND intervention given Measure #111: Pneumonia Vaccination: Pneumococcal vaccine NOT administered or previously given Measure #47: Advance Care Plan: Advance care planning discussed & documented, plan or surrogate given Measure #412: Opioid Treatment Agreement: Documented signed opioid trtmnt agreemnt min once during opioid trtmnt Measure #408: Opioid Therapy Follow-up Evaluation: Patient had f/u eval minimum every 3 months during opioid therapy Measure #317: Preventitive Care & Scrn High Bld Press & F/U: Pre-hypertensive or hypertensive BP documented, pt will f/u with PCP Measure #128: Body Mass Index (BMI) Screening & Follow-up: BMI documented within normal parameters Measure #131: Pain Assessment & Follow-up: Pain positive & plan documented, Follow-up scheduled Measure #431: Unhealthy Alcohol Use Preventative Care & Scrn: Patient not identified as an unhealthy alcohol user PQRS Narrative: Objective - Vital Signs Vital signs: Vital Signs Temp Pulse 98 06/03/18 12:07 Resp 16 06/03/18 12:07 BP 133/82 06/03/18 12:07 Pulse Ox 96 06/03/18 12:07 Intake & Output 06/02/18 06/03/18 06/03/18 18:59 06:59 18:59 Weight 61.235 kg
[2018-06-03 14:19] LABS: Anion Gap 6 mmol/L; Blood Urea Nitrogen 13 mg/dL (7-17); Calcium 9.7 mg/dL (8.4-10.2); Carbon Dioxide 28 mmol/L (22-30); Chloride 109 mmol/L (98-107); Glucose 98 mg/dL (74-99); Potassium 4.3 mmol/L (3.5-5.1); Sodium 143 mmol/L (137-145)
== END | disposition home or self-care (01) ==
LOC: PNWHC3 11:30
PROVIDERS: ATTEND Specialist
DX: G89.29 Other chronic pain (principal); M96.1 Postlaminectomy syndrome, not elsewhere classified; M47.816 Spondylosis without myelopathy or radiculopathy, lumbar region; M46.96 Unspecified inflammatory spondylopathy, lumbar region; Z79.891 Long term (current) use of opiate analgesic; Z79.1 Long term (current) use of non-steroidal anti-inflammatories (NSAID)
CPT/HCPCS: 80048; 99211

== ENCOUNTER → 2018-07-29 | Outpatient (CLI) | payer BC ==
[2018-07-29 12:25] VITALS: BP 126/85; PULSE 93; RESP 16
--- NOTE | 2018-07-30 11:40 | P.PN ---
Subjective Progress Note Date: 07/29/18 This is follow-up visit for this patient with a history of severe and chronic low back pain secondary to lumbar back surgery syndrome, lumbar facet arthropathy, We have done an interventional pain procedure radiofrequency ablation of the medial branch lumbar area The patient currently on [place] 10/325 every 8 hours, Neurontin 600 mg 3 times a day, amitriptyline 50 mg every morning 100 mg daily at bedtime, Flexeril 10 mg 3 times a day , And Motrin 3 times a day PRN Patient denies any side effect of the medication , patient denies any excessive drowsiness or sleepiness, patient denies any suicidal ideation, Patient reported that the current medication is helping to control the pain and improve the activity of daily livings, Patient denies any motor or sensory deficit, denies any change in the bowel movement or urination, patient denies any fever or night sweats. Patient here today for follow-up visit and medication refill Physical Examinations : 1-[place] : Cooperative , not in acute distress . 2-HEENT : nech ; supple , no Lymphadenopathy , normal thyroid size . eyes : no ptosis , no icterus , no photophobia . ENT : normal of hearing , normal oropharynx , no Thrush . 3- Respiratory : Chest clear to auscultations Bilaterally , no wheezing , no Rhonchi . 4- Cardiovascular : regular rate and rhythem , S1 , S2 , no S3 , no S4. 5- Gastrointestinal : abdomen soft no tenderness , bowel sounds , no organomegally . 6- Genitourinary : Defferred . 7- neurologic : Cranial nerve II to XII intact , no focal neurological deffecit . 8-psychatric : alert , oriented X 3 , appropriate affect , intact judgment and insight . 9-Lymphatic : no Lymphadenopathy . 10- musculoskeltal : , Lumber spine = lumber facet Loading Test positive strait leg raising test positive at 30 degree Right , positve at 30 degree Left Fabere test positive Right and positive Left Normal motor strength ,and normal sensation Assessment and plan= chronic low back pain secondary to lumbar failed back surgery syndrome , lumbar spondylosis with lumbar facet arthropathy . chronic and current use of high-risk medication (opioids) Patient denies any side effects of the current pain medication and the current treatment/medication helping the patient to do activity of daily living , Diagnoses, prognosis, treatment options, including but not limited to physical therapy, medication management, interventional therapies, and surgery, were discussed with the patient All the questions answered The narcotic consent was signed and patient agreed and understood the side effects and complications of opioid treatment. Patient signed the narcotic agreement, and was orally counseled, not to overuse, not to abuse, not to Divert , not tp sell pain medication, and to take it as prescribed only, Patient was counseled not to drive or operate heavy equipment while using narcotic medication, and advised not to use alcohol or any Illicit drugs while using the narcotis, understanding that lack of compliance with any of the above instructions, will likely to cause discharge from, the pain service, not to renew his narcotic prescriptions Medication managements= patient will be given prescription refills for [place] 10/325 every 8 hours dispense 90 with 1 refill, amitriptyline 50 mg daily in a.m. dispense 30 with one refill Amitriptyline 100 mg daily at bedtime dispense 30 with one refill, Neurontin 600 mg 3 times a day dispense 90 with 1 refill, Motrin 600 mg every 8 hours when necessary, and she will follow up with the pain clinic in 2 months Urine drug screen done few months ago was appropriate MAPS reviewed and it was appropriate , PQRS Measure Charge Sheet Measure #130: Documentation of Current Meds in Medical Chart: Patient's medications documented in chart Measure #226: Tobacco Use: Screen & Cessation Intervention: Pt screened for tobacco use AND intervention given Measure #111: Pneumonia Vaccination: Pneumococcal vaccine NOT administered or previously given Measure #47: Advance Care Plan: Advance care planning discussed & documented, plan or surrogate given Measure #412: Opioid Treatment Agreement: Documented signed opioid trtmnt agreemnt min once during opioid trtmnt Measure #408: Opioid Therapy Follow-up Evaluation: Patient had f/u eval minimum every 3 months during opioid therapy Measure #317: Preventitive Care & Scrn High Bld Press & F/U: normal BP documented, pt will f/u with PCP Measure #128: Body Mass Index (BMI) Screening & Follow-up: BMI documented within normal parameters Measure #131: Pain Assessment & Follow-up: Pain positive & plan documented, Follow-up scheduled Measure #431: Unhealthy Alcohol Use Preventative Care & Scrn: Patient not identified as an unhealthy alcohol user PQRS Narrative: Objective - Vital Signs Vital signs: Vital Signs Temp Pulse 93 03/04/19 12:16 Resp 16 07/29/18 12:16 BP 126/85 07/29/18 12:16 Pulse Ox 95 07/29/18 12:16 Intake & Output 07/29/18 07/30/18 07/30/18 18:59 06:59 18:59 Weight 61.144 kg
== END ==
LOC: PNWHC3 10:55
PROVIDERS: ATTEND Specialist
DX: G89.29 Other chronic pain (principal); M96.1 Postlaminectomy syndrome, not elsewhere classified; M47.816 Spondylosis without myelopathy or radiculopathy, lumbar region; Z79.891 Long term (current) use of opiate analgesic; Z79.899 Other long term (current) drug therapy; Z79.1 Long term (current) use of non-steroidal anti-inflammatories (NSAID)
CPT/HCPCS: 99211

== ENCOUNTER → 2018-08-05 | Outpatient (CLI) | payer BC ==
--- NOTE | 2018-08-05 08:17 | CT ---
EXAMINATION TYPE: CT soft tissue neck w con DATE OF EXAM: 08/05/2018 COMPARISON: None HISTORY: Right cheek swelling and pain CT DLP: 290.9 mGycm CONTRAST: CT scan of the neck is performed with IV Contrast, patient injected with 100 mL of Isovue 300. Contrast enhanced CT of the neck was performed from the skull base through the lung apices. BB marker is placed at the site of clinical concern corresponding to the right cheek region. At the site of clinical concern there is a mildly prominent vascular structure. There are also 2 reji cent lymph nodes which are within normal limits with regards to size measuring up to 7 mm in short ax is. No definite inflammatory process or mass is appreciated at this time. AIRWAY: The supraglottic, glottic, and subglottic portions of the airway appear patent and free of mass. SALIVARY GLANDS: The submandibular and parotid glands are free of mass or inflammatory process. THYROID GLAND: No nodules or masses seen. LYMPH NODES: No adenopathy seen greater than 1cm. LUNG APICES: Biapical scarring and emphysematous change. 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 Dedicated CT of the chest is advised. OTHER: Vascular structures are patent. No significant degenerative change of the cervical spine. N o abscess seen. IMPRESSION: 1. At the site of clinical concern there is a mildly prominent vascular structure. There are also 2 a djacent lymph nodes which are within normal limits with regards to size measuring up to 7 mm in short axis. 2. Incidental nodular density identified posteriorly right upper lobe image 7. Dedicated CT of the est is advised.
== END ==
LOC: RADCTMAIN 06:31
PROVIDERS: ATTEND Otolaryngology
DX: R22.1 Localized swelling, mass and lump, neck (principal)
CPT/HCPCS: 70491; Q9967

== ENCOUNTER → 2018-08-13 | Outpatient (CLI) | payer BC ==
[2018-08-13 11:46] VITALS: BP 136/68; PULSE 112; RESP 18
--- NOTE | 2018-08-13 12:15 | P.PAINPG ---
Subjective Progress Note Date: 08/13/18 Principal diagnosis: Lumbar spondylosis This is a pleasant 57-year-old woman with a history of intractable low back pain. She presents today in follow-up. She is requesting undergo repeat of lumbar radio frequency ablation as she has found this is very helpful in treating her low back pain. She has had some episodes sense approximately the year in which she has had swelling in her right face. She has treated this with 2 courses of antibiotics which it has responded positively. Unfortunately, did recur a third time. She has had extensive imaging and has had followed up with multiple emergency medical technician. The etiology of the swelling appears to be somewhat a mystery at this time. There is no clear infection or clear source of infection. The computed tomography scan she had with contrast does not reveal anything significant regarding and infection. She continues to follow up these individuals. She is currently on a course of antibiotics will be off these soon. Objective - Vital Signs Vital signs: Vital Signs Temp Pulse 112 H 08/13/18 11:37 Resp 18 08/13/18 11:37 BP 136/68 08/13/18 11:37 Pulse Ox 95 08/13/18 11:37 Intake & Output 08/12/18 08/13/18 08/13/18 18:59 06:59 18:59 Weight 61.235 kg - Exam General: The patient is alert and oriented. Patient is not sedated Patient answers all question appropriately. Cardiac: Heart is regular in rate and rhythm Respiratory: Clear to auscultation. No audible wheezes. Abdomen: Soft nontender nondistended. Musculoskeletal: She does not demonstrate any obvious motor deficits. She walks with a guarded posture. Facet loading maneuvers are positive bilaterally. Neurological: Reflexes are preserved and symmetric bilaterally. Assessment and Plan Plan: We will schedule the patient for left lumbar medial branch radio frequency ablation at L4, L5 and the sacral ala. This will then be repeated by radiofrequency ablation on the right side at another appointment. The patient is currently afebrile and there is no obvious source of infection. I will not withhold this procedure because of the facial swelling of unknown etiology. PQRS Measure Charge Sheet Measure #130: Documentation of Current Meds in Medical Chart: Patient's medications documented in chart Measure #226: Tobacco Use: Screen & Cessation Intervention: Pt screened for tobacco use AND intervention given Measure #111: Pneumonia Vaccination: Pneumococcal vaccine NOT administered or previously given Measure #47: Advance Care Plan: Advance care planning discussed & documented, pt chose/unable to give Measure #412: Opioid Treatment Agreement: Documented signed opioid trtmnt agreemnt min once during opioid trtmnt Measure #408: Opioid Therapy Follow-up Evaluation: Patient had f/u eval minimum every 3 months during opioid therapy Measure #317: Preventitive Care & Scrn High Bld Press & F/U: Normal blood pressure, f/u not required Measure #128: Body Mass Index (BMI) Screening & Follow-up: BMI documented within normal parameters Measure #131: Pain Assessment & Follow-up: Pain positive & plan documented Measure #431: Unhealthy Alcohol Use Preventative Care & Scrn: Patient not identified as an unhealthy alcohol user PQRS Narrative: Smoking Status Current every day smoker Do You Want the Pneumonia No Vaccine AT THIS TIME? Narcotic Agreement Date Signed 04/04/17 Blood Pressure 136/68 Pain Intensity [Right Lower 7 Jaw] Scale Used Numeric (1 - 10) Hx Alcohol Use (MH) Yes: rare Home Medications: Ambulatory Orders Multivitamins, Thera [Multivitamin] 1 tab PO QAM 11/24/13 Calcium Carbonate/Vitamin D3 [Caltrate 600 Plus D3 Tablet] 2 tab PO HS 06/26/17 Omeprazole [PriLOSEC] 40 mg PO DAILY #30 capsule. 10/08/17 Amitriptyline HCl [Elavil] 100 mg PO HS #30 tab 04/08/18 Gabapentin [Neurontin] 600 mg PO TID #90 tablet 06/03/18 Ibuprofen [Motrin] 600 mg PO Q8HR PRN #90 tab 06/03/18 Amitriptyline HCl [Elavil] 50 mg PO Q8HR #90 tab 07/29/18 Cyclobenzaprine [Flexeril] 10 mg PO BID #60 tab 07/29/18 HYDROcodone/APAP 10-325MG [[place] 10-325] 1 tab PO Q8HR PRN 30 Days #90 tab 07/29/18 HYDROcodone/APAP 10-325MG [[place] 10-325] 1 tab PO Q8HR PRN 30 Days #90 tab 07/29/18 Amoxicillin/Potassium Clav [Augmentin 500-125 Tablet] 1 tab PO BID 08/13/18 Controlled Substance Measures - Controlled Substance Measures Is patient prescribed a controlled substance at discharge?: No
== END | disposition home or self-care (01) ==
LOC: PNWHC3 11:14
PROVIDERS: ATTEND Pain Medicine Pain Medicine
DX: M47.816 Spondylosis without myelopathy or radiculopathy, lumbar region (principal); R22.0 Localized swelling, mass and lump, head; F17.200 Nicotine dependence, unspecified, uncomplicated; Z98.890 Other specified postprocedural states; Z79.899 Other long term (current) drug therapy
CPT/HCPCS: 99211

== ENCOUNTER 2018-08-27 06:18 | Day surgery (SDC) | payer BC ==
[2018-08-22 09:31] VITALS: BMI 22.4
[2018-08-27 06:37] VITALS: RESP 16; TEMP 97.4
[2018-08-27] MEDS ORDERED: LIDOCAINE 1% 20 ML VIAL (10MG/ML) FOR IV START INTRADERMA ONE (06:43)
[2018-08-27] MEDS ORDERED: LACTATED RINGERS 1,000 ML IV ONE (06:43)
--- NOTE | 2018-08-27 07:22 | P.PCN ---
Date of Procedure: 08/27/18 Operative Findings: PREOPERATIVE DIAGNOSIS: Lumbar Facet Arthropathy. POSTOPERATIVE DIAGNOSIS: Lumbar Facet Arthropathy. PROCEDURES : LEFT Radiofrequency thermocoagulation, , L4, and L5 , s1 medial branch, with fluoroscopic guidance ANESTHESIA: IV sedation with versed and fentanyl and local infiltration with lidocaine 1% 10 ml EBL: Minimal PROCEDURE INDICATION: The patient with low back pain secondary to lumbar facet arthropathy who had more than 50% relief of pain with previous diagnostic lumbar medial branch block with local anesthetic. PROCEDURE DESCRIPTION / TECHNIQUE: The patient was seen and identified in the preoperative area. Risks, benefits, complications, including but not limited to risk of infection ,bleeding , allergic reactions to the medications and no complete pain relief , and alternatives were discussed with the patient, the patient agreed to proceed with the procedure and signed the consent. IV was started. Vital signs remained stable throughout the procedure. Patient was taken to the OR and time out was completed. The patient was placed in the prone position on the procedure table. The lumber area was prepped and draped in the usual sterile fashion. . Vital signs were closely monitored during the procedure .IV sedation was used during the procedure to decrease patient anxiety. Using AP and then oblique fluoroscopy, the eye of the Manolo dog corresponding to the connection between the superior and transverse articular processes of left L4, and L5 were identified, marked, and localized with 1% lidocaine. Subsequently, a 20 [id number] radiofrequency cannula with a 10-mm active tip was advanced guided by fluoroscopy to each of the eyes of the Manolo dog at L4, and L5. Each site then underwent sensory testing at 50 Hz and 0 to 1 volt and motor testing at 2.5 Hz and 0 to 3 volt with local stimulation, but no radicular symptoms down the legs. Thereafter the L4, and L5 sites underwent radiofrequency thermocoagulation at 80 degrees celsius for 90 seconds after injecting 0.5 ml of PF lidocaine 1%. Then after the thermocoagulation was done , 1 ml of the block solution containing marcaine 0.5% was injected at the left L4, L5 and sacral ala, levels after negative aspiration of CSF and blood and with no paresthesias. Cannulas were retracted. At the end of the procedure, the skin was cleansed and bandages were applied. COMPLICATIONS: No acute complications. DISPOSITION / PLANS: The patient was placed in a supine position and transferred to the recovery area in a stable condition for observation and was discharged from the recovery room after meeting discharge criteria. Home discharge instructions given to the patient by the staff. The patient was reexamined prior to discharge. We will perform the other side in 2 weeks or have the patient follow-up in the clinic
[2018-08-27] MEDS ORDERED: IV FLUID CONTINUATION 1,000 ML IV ONE (07:44)
[2018-08-27 07:46] VITALS: PULSE 86
[2018-08-27 08:01] VITALS: BP 118/75
--- NOTE | 2018-08-27 08:59 | FL ---
Fluoroscopy HISTORY: Pain 4 seconds fluoroscopy time supplied to the referring clinician. 1 intraoperative C-arm images docume nt the procedure. See dictated report from anesthesia.
== END 2018-08-27 08:15 | disposition home or self-care (01) ==
LOC: ORPAIN 06:18
PROVIDERS: ATTEND Hospitalist
DX: M47.816 Spondylosis without myelopathy or radiculopathy, lumbar region (principal); F17.200 Nicotine dependence, unspecified, uncomplicated; Z79.899 Other long term (current) drug therapy; Z88.6 Allergy status to analgesic agent
CPT/HCPCS: 64635; 64636; J2250; J2001; J3010; 99152

== ENCOUNTER → 2018-08-28 | Outpatient (CLI) | payer BC ==
--- NOTE | 2018-08-28 09:52 | CT ---
EXAMINATION TYPE: CT chest w con DATE OF EXAM: 08/28/2018 COMPARISON: CT neck 08/05/2018 HISTORY: Abn CT neck, lung nodule CT DLP: 142.9 mGycm, Automated exposure control for dose reduction was used. CONTRAST: Performed injected with 100 mL of Isovue 300. TECHNIQUE: Axial images were obtained at 5 mm thick sections. Reconstructed images are reviewed on [email or web address] computer in the coronal plane. FINDINGS: Portion of the thyroid visualized is normal. Within the posterior right lung midportion are 2 small adjacent nodules measuring 0.4 and 0.3 cm. Ser ies 4 image 24. This appears to correspond to the findings of 08/05/2018. Monitoring is recommended. F ollow-up chest CT in 3 months is recommended. There may been some debris within the posterior lateral right portion of the proximal trachea at thor acic inlet. This was not present on the comparison CT neck. There is a prominent 1.1 cm pretracheal lymph node at the level of the isabel. Slightly smaller pret cristino and aortopulmonic window lymph nodes are present. No suspicious hilar adenopathy is evident. The ascending aorta diameter at the level of the main pulmonary artery is 2.7 cm. The main pulmonary artery diameter at the bifurcation is 2.[address] sections are obtained through the upper abdomen. Abdomen is essentially unremarkable. COMPARISON: IMPRESSIONS: 1. Couple small adjacent nodules within the posterior right midlung. Follow-up CT chest is recommende d in 3 months. 2. Debris within the trachea, not present previously.
== END ==
LOC: RADCTMAIN 06:54
PROVIDERS: ATTEND Internal Medicine Critical Care Medicine
DX: R91.8 Other nonspecific abnormal finding of lung field (principal)
CPT/HCPCS: 71260; Q9967

== ENCOUNTER 2018-09-17 06:20 | Day surgery (SDC) | payer BC ==
[2018-09-16 12:03] VITALS: BMI 22.4
[~2018-09-17 06:20] MED LIST changes: +LACTATED RINGERS 1,000 ML IV SCH; -SODIUM CHLORIDE 0.9% 1,000 ML IV ONE
[2018-09-17 06:31] VITALS: RESP 18; TEMP 98.4
[2018-09-17] MEDS ORDERED: LACTATED RINGERS 1,000 ML IV ONE (06:37)
[2018-09-17] MEDS ORDERED: LIDOCAINE 1% 20 ML VIAL (10MG/ML) FOR IV START INTRADERMA ONE (06:38)
--- NOTE | 2018-09-17 07:43 | P.PCN ---
Date of Procedure: 09/17/18 Procedure(s) Performed: PREOPERATIVE DIAGNOSIS: Lumbar spondylosis with Facet Arthropathy. POSTOPERATIVE DIAGNOSIS: Lumbar spondylosis with Facet Arthropathy. PROCEDURES :Right Radiofrequency thermocoagulation, , L4, and L5 , S1 medial branch, with fluoroscopic guidance( 2 facect joints ) ANESTHESIA: Moderate sedation with versed 2 mg and fentanyl 100 g . EBL: Minimal PROCEDURE INDICATION: The patient with low back pain secondary to lumbar facet arthropathy who had more than 50% relief of pain with previous diagnostic lumbar medial branch block with local anesthetic. PROCEDURE DESCRIPTION / TECHNIQUE: The patient was seen and identified in the preoperative area. Risks, benefits, complications, including but not limited to risk of infection ,bleeding , allergic reactions to the medications and no complete pain relief , and alternatives were discussed with the patient, the patient agreed to proceed with the procedure and signed the consent. IV was started. Vital signs remained stable throughout the procedure. Patient was taken to the OR and time out was completed. The patient was placed in the prone position on the procedure table. The lumber area was prepped and draped in the usual sterile fashion. . Vital signs were closely monitored during the procedure .IV sedation was used during the procedure to decrease patient anxiety. Using AP and then oblique fluoroscopy, the eye of the Manolo dog corresponding to the connection between the superior and transverse articular processes of right L4, and L5 were identified, marked, and localized with 1% lidocaine. Subsequently, a 18 [id number] radiofrequency cannula with a 10-mm active tip was advanced guided by fluoroscopy to each of the eyes of the Manolo dog at L4, and L5. Each site then underwent sensory testing at 50 Hz and 0 to 1 volt and motor testing at 2.5 Hz and 0 to 3 volt with local stimulation, but no radicular symptoms down the legs. Thereafter the L4, and L5 sites underwent radiofrequency thermocoagulation at 80 degrees celsius for 90 seconds after injecting 0.5 ml of PF lidocaine 1%. Then after the thermocoagulation was done , 1 ml of the block solution containing marcaine 0.5% was injected at the right L4, L5 and sacral ala, levels after negative aspiration of CSF and blood and with no paresthesias. Cannulas were retracted. At the end of the procedure, the skin was cleansed and bandages were applied. COMPLICATIONS: No acute complications. DISPOSITION / PLANS: The patient was placed in a supine position and transferred to the recovery area in a stable condition for observation and was discharged from the recovery room after meeting discharge criteria. Home discharge instructions given to the patient by the staff. The patient was reexamined prior to discharge. We will perform the other side in 2 weeks or have the patient follow-up in the clinic
[2018-09-17] MEDS ORDERED: IV FLUID CONTINUATION 1,000 ML IV ONE (07:45)
[2018-09-17 08:05] VITALS: BP 120/74; PULSE 83
--- NOTE | 2018-09-17 08:42 | FL ---
Fluoroscopy HISTORY: Pain 7 seconds fluoroscopy time supplied to the referring clinician. 3 intraoperative C-arm images docume nt the procedure. See dictated report from anesthesia.
== END 2018-09-17 08:18 | disposition home or self-care (01) ==
LOC: ORPAIN 06:20
PROVIDERS: ATTEND Specialist
DX: M47.816 Spondylosis without myelopathy or radiculopathy, lumbar region (principal); Z88.6 Allergy status to analgesic agent
CPT/HCPCS: 64635; 64636; J2250; J1030; J3010; 99152

== ENCOUNTER → 2018-09-23 | Outpatient (CLI) | payer BC ==
[2018-09-23 13:15] VITALS: BP 124/75; PULSE 103; RESP 16
--- NOTE | 2018-09-23 13:16 | P.PN ---
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 The pain lately has been going down her left leg to the left ankle with paresthesia. The patient has just finished lumbar medial branch RFA on both sides recently. She complains of increasing left leg pain that started before the ablation. She takes [place], Neurontin, Elavil, Flexeril, and Motrin for her pain. Today, pt denies new-onset weakness, bowel/bladder incontinence, or any other signs or symptoms of cauda equina syndrome. There are no signs of acute intoxication, and no indications of medication diversion or overuse. In addition to above, 13-point review of systems is also negative for chest pain, shortness of breath, changes in vision, changes in hearing, new onset weakness, abdominal pain, diarrhea, extreme fatigue, malaise, fever, skin ricardo nges, homicidal or suicidal ideation, or bowel or bladder incontinence. Vital Signs: Reviewed in EMR Gen: AAOx3, NAD HEENT: PERRLA,hearing grossly normal Pulm: resp unlabored,CTA Heart:S1,S2, No Mur Neck: supple, trachea midline Neuro exam of the lower extremities: Normal and symmetrical deep tendon reflexes bilaterally, normal and symmetrical muscle strength bilaterally. Straight leg raising test: Negative on the left side Tenderness in the paravertebral musculature: Positive tenderness on the left side of the lumbar spine and around the left sacroiliac joint Neuro: CN II-XII grossly intact, Imaging: Reviewed in EMR/chart Assessment: Failed back surgery syndrome Left lumbar radiculopathy Opioid dependence Plan: 1. Explanation: Opioid and psychological risk scores were reviewed. Diagnoses, prognoses, and multiple treatment options including but not limited to physical therapy, interventional therapies, adjuvant medical therapies, narcotic medication therapies, and surgery were discussed with the patient and all questions were answered to the patient's satisfaction. 2. Opioid agreement: Signed with the patient and the patient is warned not to use opioids while driving or before driving and not to combine opioids with benzodiazepines or alcohol. 3. Counseling: The patient was counseled extensively on SMOKING CESSATION, BODY MASS INDEX, EXERCISE. Specifically, the patient was instructed regarding the importance of smoking cessation, obesity, and exercise in the context of both chronic pain and overall health. 4. Procedures: We will schedule the patient to have caudal epidural steroid injection with lysis of adhesions under fluoroscopic guidance 5. Consultations: None 6. Investigations: With his pain continues she might need lumbar MRI with and without contrast 7. Medications: Continue with the above-mentioned medications as needed for pain 8. Disposition: Return to clinic in 8 weeks' and to the above-mentioned procedure in 1-2 weeks 9. Maps were reviewed and were appropriate. PQRS measures: 1-Patient's medications are documented in the chart. 2-Tobacco use is positive, counseling given 3-Patient has not had a pneumococcal vaccine. 4-Advanced care planning discussed, patient unable to give 5-Opioid contract signed with the patient. 6-Pain positive, follow-up visit or procedure scheduled 7-Patient's blood pressure measured and documented within normal limits. The patient will follow up with his primary care physician. 8-Patient's weight was measured, and body mass index ABOVE the normal limits, and counseling was done. Patient instructed to follow up with PCP. 9-Patient WAS NOT identified as an unhealthy alcohol user. Controlled Substance Measures Is patient prescribed a controlled substance at discharge?: Yes When asked, does pt state using other controlled substances?: No If prescribed controlled substance>3 days was MAPS reviewed?: Yes If Rx opioid, was Start Talking consent form obtained?: Yes If opioid is for acute pain is fill amount 7 days or less?: No Was information provided regarding opioid addiction?: Yes Objective - Vital Signs Vital signs: Intake & Output 09/22/18 09/23/18 09/23/18 18:59 06:59 18:59 Weight 61.235 kg
== END ==
LOC: PNWHC3 12:36
PROVIDERS: ATTEND Anesthesiology
DX: M54.16 Radiculopathy, lumbar region (principal); M96.1 Postlaminectomy syndrome, not elsewhere classified; Z79.891 Long term (current) use of opiate analgesic; Z71.6 Tobacco abuse counseling
CPT/HCPCS: 99211

== ENCOUNTER 2018-10-10 06:46 | Day surgery (SDC) | payer BC ==
[2018-10-08 14:48] VITALS: BMI 21.7
[2018-10-10 07:14] VITALS: TEMP 97.8
[2018-10-10] MEDS ORDERED: LIDOCAINE 1% 20 ML VIAL (10MG/ML) FOR IV START INTRADERMA ONE (07:20)
[2018-10-10] MEDS ORDERED: LACTATED RINGERS 1,000 ML IV ONE (07:20)
--- NOTE | 2018-10-10 08:30 | P.PCN ---
Date of Procedure: 10/10/18 Description of Procedure: PREOP DIAGNOSIS: Lumbar postlaminectomy syndrome POSTOP DIAGNOSIS: Lumbar postlaminectomy syndrome PROCEDURE: Caudal epidural steroid injection with epidurolysis and epidurogram under fluoroscopic guidance ANESTHESIA: Local with 1% lidocaine 3 ml ; IV sedation with Versed 2 mg and fentanyl 100 g PROCEDURE INDICATION: The patient with post-laminectomy syndrome with low back pain and radiculopathy radiating down in both legs, here for a caudal epidural steroid injection with epidurolysis. PROCEDURE DESCRIPTION: The patient was seen and identified in the preoperative area. Risks, benefits, complications, and alternatives were discussed with the patient. The patient agreed to proceed with the procedure and signed the consent. IV was started, and vital signs were stable. Patient was taken to the OR and time out was completed. The patient was placed in the prone position on procedure table and a pillow was placed under the abdomen to reduce lumbar lordosis. The lumbosacral area was prepped and draped in the usual sterile fashion. Vital signs were closely monitored during the procedure. lateral view and the anterior-posterior plates of the sacrum were identified with infiltration of the area overlying the sacral hiatus with 1% lidocaine .A 17 gauge RK epidural needle was used to advance through the sacral hiatus into the caudal epidural space. Omnipaque 180 dye. 2cc was injected and the position of the needle was verified to be in the midline. A Racz catheter was introduced into the epidural space and was advanced towards the L5-S1 interspace under direct fluoroscopic guidance. Multiple passes were made with the catheter for lysis of epidural adhesions. Dexamethasone 20mg with 3ml of preservative free Lidocaine 1% and 5 ml of preservative free normal saline was injected slowly. Additional spread was seen to L4 under fluoroscopy. The needle and the catheter were withdrawn intact. EPIDUROGRAM: Omnipaque 180 mg dye 2 ml was injected with spread of the dye into the caudal epidural space and with spread cutoff at L5 prior to epidurolysis. Post epidurolysis dye 2 ml was injected and spread was seen to L3-4 on the left. The filling defect correlates with patients symptoms of left L4 and L5 radicular pain. There was further spread of the solution together with the dye above the L3 COMPLICATIONS: None. DISPOSITION / PLANS: The patient was placed in a supine position and transferred to the recovery area in a stable condition for observation and was discharged from the recovery room after meeting discharge criteria. Home discharge instructions given to the patient by the staff. The patient was reexamined prior to discharge. The patient will schedule a follow up in the clinic in 2-4 weeks.
[2018-10-10 08:34] VITALS: PULSE 83; RESP 16
[2018-10-10 08:40] VITALS: BP 120/83
[2018-10-10] MEDS ORDERED: LACTATED RINGERS 1,000 ML IV SCH (09:00)
--- NOTE | 2018-10-10 09:37 | FL ---
Fluoroscopy HISTORY: Pain 46 seconds fluoroscopy time supplied to the referring clinician. 2 intraoperative C-arm images docum ent the procedure. See dictated report from anesthesia.
== END 2018-10-10 08:58 | disposition home or self-care (01) ==
LOC: ORPAIN 06:46
PROVIDERS: ATTEND Anesthesiology
DX: M96.1 Postlaminectomy syndrome, not elsewhere classified (principal); M54.16 Radiculopathy, lumbar region; Z88.5 Allergy status to narcotic agent
CPT/HCPCS: 62264; 62323; J2250; J2001; J3010; Q9966; C1894; 99152

== ENCOUNTER → 2018-11-18 | Outpatient (CLI) | payer BC ==
[2018-11-18 13:05] VITALS: BP 107/68; PULSE 98; RESP 16
--- NOTE | 2018-11-19 21:23 | P.PAINPG ---
Subjective Progress Note Date: 11/18/18 This is follow-up visit for this patient with a history of severe and chronic low back pain secondary to lumbar back surgery syndrome, lumbar facet arthropathy, We have done an interventional pain procedure radiofrequency ablation of the medial branch lumbar area and recently moved done: Epidural steroid injection that helped her low back pain The patient currently on [place] 10/325 every 8 hours, Neurontin 600 mg 3 times a day, amitriptyline 50 mg every morning 100 mg daily at bedtime, Flexeril 10 mg 3 times a day and Motrin 800 mg every 8 hours when necessary for pain Patient denies any side effect of the medication , patient denies any excessive drowsiness or sleepiness, patient denies any suicidal ideation, Patient reported that the current medication is helping to control the pain and improve the activity of daily livings, Patient denies any motor or sensory deficit, denies any change in the bowel movement or urination, patient denies any fever or night sweats. Patient here today for follow-up visit and medication refill Physical Examinations : -Constitutiona : Cooperative , not in acute distress . -HEENT : nech ; supple , no Lymphadenopathy , normal thyroid size . : eyes : no ptosis , no icterus, no photophobia . : ENT : normal of hearing , normal oropharynx , no Thrush . - Respiratory : Chest clear to auscultations Bilaterally , no wheezing , no Rhonchi . - Cardiovascular : regular rate and rhythem , S1 , S2 , no S3 , no S4. - Gastrointestinal : abdomen soft no tenderness , bowel sounds , no organomegally . - Genitourinary : Defferred . - neurologic : Cranial nerve II to XII intact , no focal neurological deffecit . -psychatric : alert , oriented X 3 , appropriate affect , intact judgment and insight . -Lymphatic : no Lymphadenopathy . - musculoskeltal : , Lumber spine = lumber facet Loading Test positive strait leg raising test positive at 30 degree Right , positve at 30 degree Left Fabere test positive Right and positive Left Normal motor strength ,and normal sensation Assessment and plan= chronic low back pain secondary to lumbar failed back surgery syndrome , lumbar spondylosis with lumbar facet arthropathy . chronic and current use of high-risk medication (opioids) Patient denies any side effects of the current pain medication and the current treatment/medication helping the patient to do activity of daily living , Diagnoses, prognosis, treatment options, including but not limited to physical therapy, medication management, interventional therapies, and surgery, were discussed with the patient All the questions answered The narcotic consent was signed and patient agreed and understood the side effects and complications of opioid treatment. Patient signed the narcotic agreement, and was orally counseled, not to overuse, not to abuse, not to Divert , not tp sell pain medication, and to take it as prescribed only, Patient was counseled not to drive or operate heavy equipment while using narcotic medication, and advised not to use alcohol or any Illicit drugs while using the narcotis, the patient's verbalized understanding, and she understands that lack of compliance with any of the above instructions, will likely to cause discharge from, the pain service, not to renew his narcotic prescriptions Medication managements= patient will be given prescription refills for [place] 10/325 every 8 hours dispense 90 with 1 refill, amitriptyline 50 mg dispensed 90 tablets 1 tablet in the morning and 2 daily at bedtime, Neurontin 600 mg 3 times a day dispense 90 with 1 refill, Flexeril 10 mg 3 times a day Motrin 800 mg every 8 hours when necessary 3 times a day \ Objective - Vital Signs Vital signs: Vital Signs Temp Pulse 98 11/18/18 13:02 Resp 16 11/18/18 13:02 BP 107/68 11/18/18 13:02 Pulse Ox PQRS Measure Charge Sheet Measure #130: Documentation of Current Meds in Medical Chart: Patient's medications documented in chart Measure #226: Tobacco Use: Screen & Cessation Intervention: Pt screened for tobacco use AND intervention given Measure #111: Pneumonia Vaccination: Pneumococcal vaccine NOT administered or previously given Measure #47: Advance Care Plan: Advance care planning discussed & documented, pt chose/unable to give Measure #412: Opioid Treatment Agreement: Documented signed opioid trtmnt agreemnt min once during opioid trtmnt Measure #408: Opioid Therapy Follow-up Evaluation: Patient had f/u eval minimum every 3 months during opioid therapy Measure #317: Preventitive Care & Scrn High Bld Press & F/U: Normal blood pressure, f/u not required Measure #128: Body Mass Index (BMI) Screening & Follow-up: BMI documented within normal parameters Measure #131: Pain Assessment & Follow-up: Pain positive & plan documented, Follow-up scheduled Measure #431: Unhealthy Alcohol Use Preventative Care & Scrn: Patient not identified as an unhealthy alcohol user PQRS Narrative: Smoking Status Current every day smoker Narcotic Agreement Date Signed 04/04/17 Blood Pressure 107/68 Pain Intensity [Lower Back] 4 Scale Used Numeric (1 - 10) Hx Alcohol Use (MH) No Home Medications: Ambulatory Orders Multivitamins, Thera [Multivitamin] 1 tab PO QAM 11/24/13 Calcium Carbonate/Vitamin D3 [Caltrate 600 Plus D3 Tablet] 2 tab PO HS 06/26/17 Amitriptyline HCl [Elavil] 100 mg PO HS #30 tab 04/08/18 Gabapentin [Neurontin] 600 mg PO TID #90 tablet 06/03/18 Ibuprofen [Motrin] 600 mg PO Q8HR PRN #90 tab 06/03/18 Cyclobenzaprine [Flexeril] 10 mg PO BID #60 tab 07/29/18 HYDROcodone/APAP 10-325MG [[place] 10-325] 1 tab PO Q8HR PRN 30 Days #90 tab 07/29/18 Amitriptyline HCl [Elavil] 50 mg PO QAM 08/22/18 Omeprazole [PriLOSEC] 40 mg PO DAILY PRN 08/22/18 Controlled Substance Measures - Controlled Substance Measures Is patient prescribed a controlled substance at discharge?: Yes When asked, does pt state using other controlled substances?: No If prescribed controlled substance>3 days was MAPS reviewed?: Yes If Rx opioid, was Start Talking consent form obtained?: Yes If opioid is for acute pain is fill amount 7 days or less?: No Was information provided regarding opioid addiction?: Yes
== END | disposition home or self-care (01) ==
LOC: PNWHC3 12:15
PROVIDERS: ATTEND Specialist
DX: G89.29 Other chronic pain (principal); M96.1 Postlaminectomy syndrome, not elsewhere classified; M47.816 Spondylosis without myelopathy or radiculopathy, lumbar region; M46.96 Unspecified inflammatory spondylopathy, lumbar region; F17.200 Nicotine dependence, unspecified, uncomplicated; Z51.81 Encounter for therapeutic drug level monitoring; Z98.890 Other specified postprocedural states; Z79.891 Long term (current) use of opiate analgesic
CPT/HCPCS: 80307; 99211; G0482

== ENCOUNTER → 2018-12-23 | Outpatient (CLI) | payer BC ==
--- NOTE | 2018-12-23 17:03 | CT ---
EXAMINATION TYPE: CT chest w con DATE OF EXAM: 12/23/2018 COMPARISON: 08/28/2018 HISTORY: 58-year-old female with abnormal lung findings, f/u lung nodules TECHNIQUE: Contiguous axial scanning of the chest after the administration of 100 mL of Isovue 300. Coronal/sagittal reconstructions performed. CT DLP: 139.9mGycm. Automatic exposure control utilized for a dose reduction. FINDINGS: Heart normal size without pericardial effusion. Aorta normal caliber with conventional arch vessel branching anatomy. Prominent paratracheal lymph nodes measure up to 7 mm, unchanged. A borderline enlarged 1 cm precarin al lymph node is unchanged. Otherwise, no thoracic lymphadenopathy by CT size criteria. Collapsed bilateral breast implants are redemonstrated. Evaluation of the lungs show mild centrilobular emphysema. 2 adjacent nodules in the posterior right upper lung measuring 6 mm and 4 mm are slightly larger from 5 mm, previously. Streaky atelectasis at the lung bases. Vague density measuring approximately 5 mm at the right apex is unchanged. No consolidation or pleural effusion. Visualized upper abdomen shows a tiny hiatal hernia without additional gross abnormality. Bones: Mild degenerative disc disease mid thoracic spine. IMPRESSION: 1. COPD with mild emphysema. 2. Two adjacent posterior right upper lung pulmonary nodules measure 6 mm and 4 mm. Minimally larger from 5 mm three months ago. Continued follow-up in 6 months recommended. Early neoplasm not excluded at this time. 3. Borderline sized 1 cm precarinal lymph node unchanged, probably reactive/post inflammatory.
== END | disposition home or self-care (01) ==
LOC: RADCTMAIN 15:12
PROVIDERS: ATTEND Internal Medicine
DX: J43.9 Emphysema, unspecified (principal); Z88.5 Allergy status to narcotic agent
CPT/HCPCS: 71260; Q9967

== ENCOUNTER → 2019-01-13 | Outpatient (CLI) | payer BC ==
[2019-01-13 12:59] VITALS: BP 124/74; PULSE 106; RESP 16
--- NOTE | 2019-01-13 15:32 | P.PAINPG ---
Subjective Progress Note Date: 01/13/19 This is a 58-year-old female with failed back surgery. Since her last visit she did have a strain on her left knee. Bit of a concern for her and she is not sure whether the pain is from her knee or from her back. She has seen orthopedic surgeon. She has a MRI of her knee coming up. She does have sign ificant psychosocial stressors at this time and is renovating a house. She is on quite a few medications from our clinic including [place] 02/27/2025 3 times a day, Motrin 600 3 times a day, amitriptyline 50 mg in the morning 100 mg at night, Flexeril 10 mg twice a day, gabapentin 603 times per day. She describes no side effects from these medications. Objective - Vital Signs Vital signs: Vital Signs Temp Pulse 106 H 01/13/19 12:46 Resp 16 01/13/19 12:46 BP 124/74 01/13/19 12:46 Pulse Ox 97 01/13/19 12:46 Intake & Output 01/12/19 01/13/19 01/13/19 18:59 06:59 18:59 Weight 61.235 kg - Exam Vital Signs: Reviewed in EMR GENERAL: Well appearing, in no acute distress, PSYCH: Mood and affect is appropriate. Awake, alert, and oriented SKIN: Skin color, texture, turgor normal, no rashes or lesions HEENT: Normocephalic, atraumatic. EOM intact CV: No pedal edema RESP: Respirations are unlabored, no audible wheezing GI: Abdomen non-distended MUSCULOSKELETAL: Bilateral upper and lower extremity strength is normal and symmetric. No atrophy or tone abnormalities are noted. She does have some tenderness to palpation of the medial joint line of the left knee. Anterior drawer test did cause pain Lumbar spine: Some pain to palpation over the lumbar spine and paraspinous muscles. [] for pain with facet loading and back extension/rotation. [] lumbar flexion, extension due to pain. Extremities: Peripheral joint ROM is full and pain free without obvious instability or laxity in all four extremities. No edema or skin discolorations noted. Gait: Gait is anantalgic NEUR: No loss of sensation is noted. Cranial nerves are grossly intact. 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 She has had a recent injury to her left knee. She is being worked up by her orthopedic surgeon with a knee MRI for this. Until this is further sorted out I am deferring interventions. She did inquire about pain control options during the operative phase if he does have surgery. I didn't discuss nerve blocks with her but deferred to her anesthesiologist day of surgery. Assessment: 1. Failed back surgery syndrome 2. Knee pain 3. Chronic opioid use Plan: 1. Explanation: Opioid and psychological risk scores were reviewed. Diagnoses, prognoses, and multiple treatment options including but not limited to physical therapy, interventional therapies, adjuvant medical therapies, narcotic medication therapies, and surgery were discussed with the patient and all questions were answered to the patient's satisfaction. 2. Opioid agreement: In place 3. 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 Procedures: Deferred until her knee MRI is complete. We can consider knee injections for 5. Consultations: None, she is already scheduled with orthopedic surgery 6. Investigations: Knee MRI per orthopedic surgery 7. Medications: I refilled all of her medications. This includes [place] 02/27/2025 3 times a day, amitriptyline 50 mg in the morning 100 at night, Motrin 600 3 times a day, gabapentin 600 3 times a day, Flexeril 10 twice a day 8. Disposition: 8 weeks , PQRS Measure Charge Sheet Measure #226: Tobacco Use: Screen & Cessation Intervention: Pt screened for tobacco use AND intervention given Measure #111: Pneumonia Vaccination: Pneumococcal vaccine NOT administered or previously given Measure #47: Advance Care Plan: Advance care planning discussed & documented, pt chose/unable to give Measure #412: Opioid Treatment Agreement: Documented signed opioid trtmnt agreemnt min once during opioid trtmnt Measure #408: Opioid Therapy Follow-up Evaluation: Patient had f/u eval minimum every 3 months during opioid therapy Measure #131: Pain Assessment & Follow-up: Pain positive & plan documented, Follow-up scheduled Measure #431: Unhealthy Alcohol Use Preventative Care & Scrn: Patient not identified as an unhealthy alcohol user PQRS Narrative: Smoking Status Current every day smoker Narcotic Agreement Date Signed 04/04/17 Blood Pressure 124/74 Pain Intensity [Back] 9 Scale Used Numeric (1 - 10) Hx Alcohol Use (MH) No Home Medications: Ambulatory Orders Multivitamins, Thera [Multivitamin] 1 tab PO QAM 11/24/13 Calcium Carbonate/Vitamin D3 [Caltrate 600 Plus D3 Tablet] 2 tab PO HS 06/26/17 Amitriptyline HCl [Elavil] 100 mg PO HS #30 tab 04/08/18 Gabapentin [Neurontin] 600 mg PO TID #90 tablet 06/03/18 Ibuprofen [Motrin] 600 mg PO Q8HR PRN #90 tab 06/03/18 Cyclobenzaprine [Flexeril] 10 mg PO BID #60 tab 07/29/18 HYDROcodone/APAP 10-325MG [[place] 10-325] 1 tab PO Q8HR PRN 30 Days #90 tab 07/29/18 Amitriptyline HCl [Elavil] 50 mg PO QAM 08/22/18 Omeprazole [PriLOSEC] 40 mg PO DAILY PRN 08/22/18 Controlled Substance Measures - Controlled Substance Measures Is patient prescribed a controlled substance at discharge?: Yes When asked, does pt state using other controlled substances?: No If prescribed controlled substance>3 days was MAPS reviewed?: Yes If Rx opioid, was Start Talking consent form obtained?: Yes If opioid is for acute pain is fill amount 7 days or less?: No Was information provided regarding opioid addiction?: Yes
== END | disposition home or self-care (01) ==
LOC: PNWHC3 11:59
PROVIDERS: ATTEND Student in an Organized Health Care Education/Training Program
DX: M96.1 Postlaminectomy syndrome, not elsewhere classified (principal); M25.569 Pain in unspecified knee; F11.90 Opioid use, unspecified, uncomplicated; F17.200 Nicotine dependence, unspecified, uncomplicated; Z79.1 Long term (current) use of non-steroidal anti-inflammatories (NSAID); Z79.899 Other long term (current) drug therapy
CPT/HCPCS: 99211

== ENCOUNTER → 2019-01-22 | Outpatient (CLI) | payer BC ==
--- NOTE | 2019-01-23 07:32 | MR ---
EXAMINATION TYPE: MR knee LT wo con DATE OF EXAM: 01/22/2019 COMPARISON: Outside left knee x-ray December 31, 2018. HISTORY: Left knee pain since twisting injury December 07. TECHNIQUE: Multiplanar, multisequence images of the knee is performed without IV contrast. FINDINGS: MEDIAL MENISCUS: Anterior horn is intact without tear. Faint oblique signal posterior horn of medial meniscus sagittal image 22 does not extend to articular surface LATERAL MENISCUS: Anterior and posterior horns are intact without tear. CRUCIATE LIGAMENTS: The anterior and posterior cruciate ligaments are intact and unremarkable. COLLATERAL LIGAMENTS: The medial collateral ligament and lateral collateral ligament complex are inta ct and unremarkable. EXTENSOR MECHANISM: Visualized quadriceps and patellar tendons are intact. EFFUSION: Tiny suprapatellar joint effusion. POPLITEAL CYST: No popliteal/mayberry cyst. TRICOMPARTMENT SPACES: Mild tricompartment joint space loss is without significant spurring. CARTILAGE: Some thinning of articular cartilage medial tibiofemoral compartment. No significant chond romalacia patella. BONE MARROW SIGNAL: No focal abnormal marrow signal is appreciated. OTHER: No additional significant abnormality is appreciated. IMPRESSION: Prepped intrasubstance tear posterior horn medial meniscus. No full-thickness meniscal or ligamentous tear is seen. Mild tricompartment degenerative changes are present.
== END | disposition home or self-care (01) ==
LOC: RADMRIMAIN 18:43
PROVIDERS: ATTEND Orthopaedic Surgery
DX: M17.12 Unilateral primary osteoarthritis, left knee (principal); M23.322 Other meniscus derangements, posterior horn of medial meniscus, left knee

== ENCOUNTER → 2019-03-10 | Outpatient (CLI) | payer BC ==
[2019-03-10 13:38] VITALS: BP 121/84; PULSE 102; RESP 18
--- NOTE | 2019-03-11 11:51 | P.PAINPG ---
Subjective Progress Note Date: 03/10/19 This is follow-up visit for this patient with a history of severe and chronic low back pain secondary to Failed back surgery syndrome Lumbar area , lumbar spondylosis with facet arthropathy, We have done an interventional pain procedure radiofrequency ablation of the medial branch lumbar area . The patient currently on [place] 10/325 every 8 hours, Neurontin 600 mg 3 times a day, amitriptyline 50 mg every morning 100 mg daily at bedtime, Flexeril 10 mg 2 times a day and Motrin 600 mg every 8 hours when necessary for pain Patient denies any side effect of the medication , patient denies any excessive drowsiness or sleepiness, patient denies any suicidal ideation, Patient reported that the current medication is helping to control the pain and improve the activity of daily livings, Patient denies any motor or sensory deficit, denies any change in the bowel movement or urination, patient denies any fever or night sweats. Patient here today for follow-up visit and medication refill Objective - Vital Signs Vital signs: Vital Signs Temp Pulse 102 H 03/10/19 13:34 Resp 18 03/10/19 13:34 BP 121/84 03/10/19 13:34 Pulse Ox 97 03/10/19 13:34 - Exam Physical Examinations : -Constitutiona : Cooperative , not in acute distress . -HEENT : nech : supple , no Lymphadenopathy , normal th yroid size . eyes : no ptosis , no icterus, no photophobia . - neurologic : Cranial nerve II to XII intact , no focal neurological deffecit . -psychatric : alert , oriented X 3 , appropriate affect , intact judgment and insight . -Lymphatic : no Lymphadenopathy . - musculoskeltal : Lumber spine moter stegnth lower extremities ,thigh and legs 5/5 Right side , 5/5 Left side deep tendon reflexes : normal Knee Jerk , normal ankle Jerk positive lumber facet Loading Test Range of motion of the lumbar spine Flexion 30 degrees, extension 10 degrees strait leg raising test , positive at 30 degree bilaterally Fabere test positive RT and positive LT . Assessment and Plan Plan: Assessment and plan= chronic low back pain secondary to , lumbar spondylosis with lumbar facet arthropathy , failed back surgery syndrome and lumbar area. chronic and current use of high-risk medication (opioids) Patient denies any side effects of the current pain medication and the current treatment/medication helping the patient to do activity of daily living , Diagnoses, prognosis, treatment options, including but not limited to phy sical therapy, medication management, interventional therapies, and surgery, were discussed with the patient All the questions answered The narcotic consent was signed and patient agreed and understood the side effects and complications of opioid treatment. Patient signed the narcotic agreement, and was orally counseled, not to overuse, not to abuse, not to Divert , not tp sell pain medication, and to take it as prescribed only, Patient was counseled not to drive or operate heavy equipment while using narcotic medication, and advised not to use alcohol or any Illicit drugs while using the narcotis. understanding that lack of compliance with any of the above instructions, will likely to cause discharge from, the pain service, not to renew his narcotic prescriptions MAPS Reviwed and it was apropriate . Medication managements= patient will be given prescription refills for Neurontin 600 mg 3 times a day dispense 90 with 1 refill, Elavil 50 mg every morning and 200 mg daily at bedtime Motrin 600 mg 3 times a day when necessary, Flexeril 10 mg twice a day, [place] 10/325 every 8 hours when necessary dispense 90 with 1 refill Patient will follow up in the pain clinic in 2 months. Urine drug screen checked and it was okay,MAPS reviewed and it was appropriate , Time with Patient: Less than 30 PQRS Measure Charge Sheet Measure #130: Documentation of Current Meds in Medical Chart: Patient's medications documented in chart Measure #226: Tobacco Use: Screen & Cessation Intervention: Pt screened for tobacco use AND intervention given Measure #111: Pneumonia Vaccination: Pneumococcal vaccine NOT administered or previously given Measure #47: Advance Care Plan: Advance care planning discussed & documented, pt chose/unable to give Measure #412: Opioid Treatment Agreement: Documented signed opioid trtmnt agreemnt min once during opioid trtmnt Measure #408: Opioid Therapy Follow-up Evaluation: Patient had f/u eval minimum every 3 months during opioid therapy Measure #317: Preventitive Care & Scrn High Bld Press & F/U: Normal blood pressure, f/u not required Measure #128: Body Mass Index (BMI) Screening & Follow-up: BMI documented within normal parameters Measure #131: Pain Assessment & Follow-up: Pain positive & plan documented, Follow-up scheduled Measure #431: Unhealthy Alcohol Use Preventative Care & Scrn: Patient not identified as an unhealthy alcohol user PQRS Narrative: Smoking Status Current every day smoker Narcotic Agreement Date Signed 04/04/17 Blood Pressure 121/84 Pain Intensity [Lower Back] 3 Scale Used Numeric (1 - 10) Hx Alcohol Use (MH) No Home Medications: Ambulatory Orders Multivitamins, Thera [Multivitamin] 1 tab PO QAM 11/24/13 Calcium Carbonate/Vitamin D3 [Caltrate 600 Plus D3 Tablet] 2 tab PO HS 06/26/17 Omeprazole [PriLOSEC] 40 mg PO DAILY PRN 08/22/18 Menthol [Bengay] 1 applic TOPICAL DIRECTED PRN 03/04/19 Voltaren Gel (Otc-From [employer]) 1 applicate TOPICAL DIRECTED PRN 03/04/19 Amitriptyline HCl [Elavil] 50 mg PO QAM #30 tab 03/10/19 Amitriptyline HCl [Elavil] 100 mg PO HS #30 tab 03/10/19 Cyclobenzaprine [Flexeril] 10 mg PO BID #60 tab 03/10/19 Gabapentin [Neurontin] 600 mg PO TID #90 tablet 03/10/19 HYDROcodone/APAP 10-325MG [[place] 10-325] 1 tab PO Q8HR PRN 30 Days #90 tab 03/10/19 HYDROcodone/APAP 10-325MG [[place] 10-325] 1 tab PO Q8HR PRN 30 Days #90 tab Ibuprofen [Motrin] 600 mg PO Q8HR PRN #90 tab 03/10/19 Controlled Substance Measures - Controlled Substance Measures Is patient prescribed a controlled substance at discharge?: Yes When asked, does pt state using other controlled substances?: No If prescribed controlled substance>3 days was MAPS reviewed?: Yes If Rx opioid, was Start Talking consent form obtained?: Yes If opioid is for acute pain is fill amount 7 days or less?: No Was information provided regarding opioid addiction?: Yes
== END | disposition home or self-care (01) ==
LOC: PNWHC3 12:49
PROVIDERS: ATTEND Specialist
DX: G89.29 Other chronic pain (principal); M47.816 Spondylosis without myelopathy or radiculopathy, lumbar region; M46.96 Unspecified inflammatory spondylopathy, lumbar region; M96.1 Postlaminectomy syndrome, not elsewhere classified; F17.200 Nicotine dependence, unspecified, uncomplicated; Z79.1 Long term (current) use of non-steroidal anti-inflammatories (NSAID); Z79.891 Long term (current) use of opiate analgesic; Z79.899 Other long term (current) drug therapy
CPT/HCPCS: 99211

== ENCOUNTER → 2019-05-05 | Outpatient (CLI) | payer BC ==
[2019-05-05 12:39] VITALS: BP 135/91; PULSE 105; RESP 16
--- NOTE | 2019-05-06 14:22 | P.PAINPG ---
Subjective Progress Note Date: 05/05/19 This is follow-up visit for this patient with a history of severe and chronic low back pain secondary to Failed back surgery syndrome Lumbar area , lumbar spondylosis with facet arthropathy, We have managed her pain with a combination of medications and interventional pain procedure- radiofrequency ablation of the medial branch lumbar area, with good benefit, last done in August 2018. She returns today for follow-up. She would like to be scheduled for repeat lumbar radiofrequency ablation. Her pain is primarily in the bilateral lower back, worse on the left side, radiating to bilateral posterior thighs. Of note, she is been working on cutting down smoking and is currently using a nicotine patch. The patient currently on [place] 10/325 every 8 hours, Neurontin 600 mg 3 times a day, amitriptyline 50 mg every morning 100 mg daily at bedtime, Flexeril 10 mg 2 times a day and Motrin 600 mg every 8 hours when necessary for pain Patient denies any side effect of the medication , patient denies any excessive drowsiness or sleepiness, patient denies any suicidal ideation, Patient reported that the current medication is helping to control the pain and improve the activity of daily livings, Patient denies any motor or sensory deficit, denies any change in the bowel movement or urination, patient denies any fever or night sweats. Patient here today for follow-up visit and medication refill Review of systems is negative for chest pain, shortness of breath, new onset weakness, numbness/tingling, abdominal pain, malaise, fever, night sweats, chills, homicidal or suicidal ideation, or bowel or bladder incontinence. Objective Physical exam: Vitals: Reviewed in EMR GENERAL: Well appearing, in no acute distress, tearful when we discussed weaning opioids PSYCH: Mood and affect is appropriate. Awake, alert, and oriented SKIN: Skin color, texture, turgor normal, no rashes or lesions HEENT: Normocephalic, atraumatic. EOM intact CV: No pedal edema RESP: Respirations are unlabored, no audible wheezing GI: Abdomen non-distended MUSCULOSKELETAL: Bilateral lower extremity strength is normal and symmetric. No atrophy or tone abnormalities are noted. Lumbar spine: Straight leg raising in the sitting position is negative for radicular pain. Tenderness to palpation over the lumbar spine and paraspinous muscles bilaterally, on the left. Positive for pain with facet loading and back extension/rotation. Buttocks: No pain to palpation over the PSIS, sacroiliac joint maneuvers are negative for pain. Extremities: Peripheral joint ROM is full and pain free without obvious instability or laxity in all four extremities. No edema or skin discolorations noted. Gait: Gait is normal NEUR: Bilateral lower extremity coordination and muscle stretch reflexes are physiologic and symmetric. Negative clonus bilaterally. No loss of sensation is noted. Assessment and Plan Plan: Assessment and plan= chronic low back pain secondary to lumbar spondylosis with lumbar facet arthropathy , failed back surgery syndrome and lumbar area. chronic and current use of high-risk medication (opioids) Patient denies any side effects of the current pain medication and the current treatment/medication helping the patient to do activity of daily living , Diagnoses, prognosis, treatment options, including but not limited to physical therapy, medication management, interventional therapies, and surgery, were discussed with the patient All the questions answered Today, we had a lengthy discussion regarding weaning narcotic medications and the dose appears effects of narcotics for long-term chronic pain management. The patient did not seem too happy with this plan, however explained that over time we will have to reduce her narcotics. I told her we will wait till after her lumbar radiofrequency ablation to do this. Following her lumbar radiofrequency, we will plan on gradually weaning her narcotics at her next visit. I had a lengthy discussion regarding the importance of exercise and low back stretching and strengthening exercises. She has not been doing any exercises recently and encouraged her to resume her exercises. MAPS Reviewed and it was appropriate . Medication managements= patient will be given prescription refills for Neurontin 600 mg 3 times a day dispense 90 with 1 refill, Elavil 50 mg every morning and 200 mg daily at bedtime Motrin 600 mg 3 times a day when necessary, Flexeril 10 mg twice a day, [place] 10/325 every 8 hours when necessary dispense 90 with 1 refill We will schedule patient for L3, L4, L5 radiofrequency ablation him a starting with the left side. Patient will follow up in the pain clinic in 2 months. Urine drug screen checked and it was congruent Objective - Vital Signs Vital signs: Vital Signs Temp Pulse 105 H 05/05/19 12:32 Resp 16 05/05/19 12:32 BP 135/91 05/05/19 12:32 Pulse Ox 96 05/05/19 12:32 PQRS Measure Charge Sheet Measure #130: Documentation of Current Meds in Medical Chart: Patient's medications documented in chart Measure #226: Tobacco Use: Screen & Cessation Intervention: Pt screened for tobacco use AND intervention given Measure #111: Pneumonia Vaccination: Pneumococcal vaccine NOT administered or previously given Measure #47: Advance Care Plan: Advance care planning discussed & documented, pt chose/unable to give Measure #412: Opioid Treatment Agreement: Documented signed opioid trtmnt agreemnt min once during opioid trtmnt Measure #408: Opioid Therapy Follow-up Evaluation: Patient had f/u eval minimum every 3 months during opioid therapy Measure #317: Preventitive Care & Scrn High Bld Press & F/U: Pre-hypertensive or hypertensive BP documented, pt will f/u with PCP Measure #128: Body Mass Index (BMI) Screening & Follow-up: BMI documented within normal parameters Measure #131: Pain Assessment & Follow-up: Pain positive & plan documented, Follow-up scheduled Measure #431: Unhealthy Alcohol Use Preventative Care & Scrn: Patient not identified as an unhealthy alcohol user PQRS Narrative: Smoking Status Current every day smoker Narcotic Agreement Date Signed 04/04/17 Blood Pressure 135/91 Pain Intensity [Back] 7 Scale Used Numeric (1 - 10) Hx Alcohol Use (MH) No Home Medications: Ambulatory Orders Multivitamins, Thera [Multivitamin] 1 tab PO QAM 11/24/13 Calcium Carbonate/Vitamin D3 [Caltrate 600 Plus D3 Tablet] 2 tab PO HS 06/26/17 Omeprazole [PriLOSEC] 40 mg PO DAILY PRN 08/22/18 Menthol [Bengay] 1 applic TOPICAL DIRECTED PRN 03/04/19 Amitriptyline HCl [Elavil] 50 mg PO QAM #30 tab 03/10/19 Amitriptyline HCl [Elavil] 100 mg PO HS #30 tab 03/10/19 Cyclobenzaprine [Flexeril] 10 mg PO BID #60 tab 03/10/19 Gabapentin [Neurontin] 600 mg PO TID #90 tablet 03/10/19 HYDROcodone/APAP 10-325MG [[place] 10-325] 1 tab PO Q8HR PRN 30 Days #90 tab 03/10/19 Ibuprofen [Motrin] 600 mg PO Q8HR PRN #90 tab 03/10/19 Controlled Substance Measures - Controlled Substance Measures Is patient prescribed a controlled substance at discharge?: Yes When asked, does pt state using other controlled substances?: No If prescribed controlled substance>3 days was MAPS reviewed?: Yes If Rx opioid, was Start Talking consent form obtained?: Yes If opioid is for acute pain is fill amount 7 days or less?: No Was information provided regarding opioid addiction?: Yes
== END | disposition home or self-care (01) ==
LOC: PNWHC3 11:09
PROVIDERS: ATTEND Anesthesiology
DX: M47.816 Spondylosis without myelopathy or radiculopathy, lumbar region (principal); M96.1 Postlaminectomy syndrome, not elsewhere classified; M46.96 Unspecified inflammatory spondylopathy, lumbar region; G89.29 Other chronic pain; Z79.891 Long term (current) use of opiate analgesic; Z79.899 Other long term (current) drug therapy
CPT/HCPCS: 99211

== ENCOUNTER 2019-05-14 08:24 | Day surgery (SDC) | payer BC ==
[2019-05-13 12:40] VITALS: BMI 22.4
[2019-05-14 08:51] VITALS: TEMP 97.8
[2019-05-14] MEDS ORDERED: LACTATED RINGERS 1,000 ML IV ONE ×2 (09:01→10:22)
--- NOTE | 2019-05-14 09:51 | P.PCN ---
Date of Procedure: 05/14/19 Procedure(s) Performed: PREOPERATIVE DIAGNOSIS: 1-Lumbar Spondylosis with Facet Arthropathy without myelopathy. 2- Lumber degenerative disc disease POSTOPERATIVE DIAGNOSIS: 1- Lumbar Spondylosis with Facet Arthropathy without myelopathy. 2- Lumber degenerative disc disease PROCEDURES : Left Radiofrequency thermocoagulation, L3 , L4 , and L5 medial branch, with fluoroscopic guidance (fluoroscopy images available in the radiology department) ( to denervate the facet joint at L4-5 ,and L5-S1 levels ) ANESTHESIA: Moderate sedation with intravenous versed 2 mg and fentaneyl 100 mcg, and local infiltration with Ropivacaine 0.5 % . EBL: Minimal PROCEDURE INDICATION: The patient with low back pain secondary to lumbar facet arthropathy who had more than 50% relief of her pain with previous diagnostic lumbar medial branch block with bupivacaine. PROCEDURE DESCRIPTION / TECHNIQUE: The patient was seen and identified in the preoperative area. Risks, benefits, complications, including but not limited to risk of infection ,bleeding , allergic reactions to the medications and no complete pain releife , and alternatives were discussed with the patient, the patient agreed to proceed with the procedure and signed the consent. IV was started. Vital signs remained stable throughout the procedure. Patient was taken to the OR and time out was completed. The patient was placed in the prone position on the procedure table. The lumber area was prepped and draped in the usual sterile fashion. . Vital signs were closely monitored during the procedure .IV sedation was used during the procedure to decrease patients anxiety. Using AP and then oblique fluoroscopy, the ``eye of the Manolo dog corresponding to the connection between the superior and transverse articular processes of left L3, L4, and L5 were identified, marked, and localized with 1% lidocaine. Subsequently, a [id number] radiofrequency cannula with a 10-mm active tip was advanced guided by fluoroscopy to each of the``eyes of the Manolo dog at left L3, L4, and L5. Each site then underwent sensory testing at 50 Hz and 0 to 1 volt and motor testing at 2.5 Hz and 0 to 3 volt with local stimulation, but no radicular symptoms down the legs. Thereafter the left L3, L4 , and L5 sites underwent radiofrequency thermocoagulation at 80 degrees celsius for 90 seconds after injecting 0.5 ml of PF Ropivacaine 1ml, then after the thermocoagulation done , 1 ml of the block solution containing Depo-Medrol 40 mg and 3 ml of Ropivacaine 0.5% was injected at the left L3 , L4 , and L5 , levels after negative aspiration of CSF and blood and with no paresthesias. Cannulas were retracted while injecting lidocaine 1% until the needle is out. At the end of the procedure, the skin was cleansed and bandages were applied. COMPLICATIONS: No acute complications. DISPOSITION / PLANS: The patient was placed in a supine position and transferred to the recovery area in a stable condition for observation and was discharged from the recovery room after meeting discharge criteria. Home discharge instructions given to the patient by the staff. The patient was reexamined prior to discharge. The patient will schedule a follow up in the clinic in 2-4 weeks.
[2019-05-14 09:55] VITALS: RESP 16
[2019-05-14 10:14] VITALS: BP 127/73; PULSE 88
--- NOTE | 2019-05-14 13:35 | FL ---
Fluoroscopy HISTORY: Pain 9 seconds fluoroscopy time supplied to the referring clinician. 3 intraoperative C-arm images docume nt the procedure. See dictated report from anesthesia.
== END 2019-05-14 10:28 | disposition home or self-care (01) ==
LOC: ORPAIN 08:24
PROVIDERS: ATTEND Specialist
DX: M47.816 Spondylosis without myelopathy or radiculopathy, lumbar region (principal); M51.36 Other intervertebral disc degeneration, lumbar region; Z78.0 Asymptomatic menopausal state; Z88.6 Allergy status to analgesic agent
CPT/HCPCS: 64635; 64636; J2250; J1030; J3010; 99152

== ENCOUNTER 2019-06-16 06:52 | Day surgery (SDC) | payer BC ==
[2019-06-12 14:59] VITALS: BMI 22.4
[~2019-06-16 06:52] MED LIST changes: +LIDOCAINE 4% (PF) 5 ML AMP ONE; +MIDAZOLAM 2 MG/2 ML VIAL ONE; +fentaNYL (PF) 50 MCG/ML 2 ML AMP ONE
[2019-06-16 07:16] VITALS: TEMP 98.8
[2019-06-16] MEDS ORDERED: LIDOCAINE 1% 20 ML VIAL (10MG/ML) FOR IV START INTRADERMA ONE (07:36)
--- NOTE | 2019-06-16 08:33 | P.PCN ---
Date of Procedure: 06/16/19 Procedure(s) Performed: PREOPERATIVE DIAGNOSIS: Lumbar Spondylosis POSTOPERATIVE DIAGNOSIS: Same PROCEDURES: Radiofrequency ablation of the L3, L4, L5 medial branches with fluoroscopic guidance on the right side SURGEON: Huyen Shepard MD. ANESTHESIA: Lidocaine 1% 5 mL, Moderate sedation with intravenous Versed and fentanyl, sedation time 21 minutes EBL: Minimal Fluoroscopy was used for the procedure and images were saved in the radiology portion of the chart. PROCEDURE INDICATION: The patient with low back pain secondary to lumbar facet arthropathy who had more than 50% relief of pain with previous diagnostic lumbar medial branch block X2. PROCEDURE DESCRIPTION / TECHNIQUE: The patient was seen and identified in the preoperative area. Risks, benefits, complications, including but not limited to risk of infection ,bleeding , allergic reactions to the medications and incomplete pain relief , and alternatives were discussed with the patient, the patient agreed to proceed with the procedure and signed the consent. IV was started. The operative site was marked. Patient was taken to the OR and time out was completed. The patient was placed in the prone position on the procedure table. The lumbar area was prepped and draped in the usual sterile fashion. . Vital signs were closely monitored during the procedure .IV sedation was used during the procedure to decrease patients anxiety. Using AP and then oblique fluoroscopy, the "eye of the Manolo dog" corresponding to the connection between the superior and transverse articular processes of the L4 and L5 as well as the sacral ala were identified, marked, and localized with 1% lidocaine. Subsequently, an 18 guage 100 mm radiofrequency cannula with a 10-mm active tip was advanced guided by fluoroscopy to the identified target at each site. Needle positioning was confirmed on AP, oblique and lateral fluoroscopy. Motor testing at 2.5 Hz was done with paraspinal muscle stimulation only, and no radicular symptoms down the legs. Then 1 mL of 4% lidocaine was injected in each site. Radiofrequency thermocoagulation at 80 degrees celsius for 90 seconds was then performed. [place] were removed. Sterile dressings were applied. COMPLICATIONS: No acute complications. DISPOSITION / PLANS: The patient was placed in a supine position and transferred to the recovery area in a stable condition for observation and was discharged from the recovery room after meeting discharge criteria. Home discharge instructions given to the patient by the staff. The patient will follow up in clinic in 4 weeks.
[2019-06-16] MEDS ORDERED: IV FLUID CONTINUATION 1,000 ML IV ONE (08:41)
[2019-06-16 09:03] VITALS: BP 122/82; PULSE 85; RESP 16
--- NOTE | 2019-06-16 09:09 | FL ---
Fluoroscopy HISTORY: Pain 10 seconds fluoroscopy time supplied to the referring clinician. 7 intraoperative C-arm images docum ent the procedure. See dictated report from anesthesia.
== END 2019-06-16 09:10 | disposition home or self-care (01) ==
LOC: ORPAIN 06:52
PROVIDERS: ATTEND Anesthesiology
DX: M47.816 Spondylosis without myelopathy or radiculopathy, lumbar region (principal)
CPT/HCPCS: 64635; 64636; J2001; J2250; J3010; 99152

== ENCOUNTER → 2019-06-21 | Outpatient (CLI) | payer BC ==
--- NOTE | 2019-06-22 13:04 | CT ---
EXAMINATION TYPE: CT chest w con DATE OF EXAM: 06/21/2019 COMPARISON: Prior chest 12/23/2018 HISTORY: Follow up lung nodule. CT DLP: 144.1 mGycm Automated exposure control for dose reduction was used. CONTRAST: CT scan of the chest is performed with IV Contrast, patient injected with 100 mL of Isovue M300. FINDINGS: LUNGS: The lungs are stable, there is no concerning parenchymal mass or nodule identified, nodules in the right upper lobe are stable. Some probable scarring present at the posterior lung bases as on pr ior, emphysematous changes are present There is no pleural effusion or pneumothorax seen. The trac heobronchial tree is patent. MEDIASTINUM: There are no greater than 1 cm hilar or mediastinal lymph nodes. No pericardial effusi on is seen. AORTA: No additional significant abnormality is seen. OTHER: Bilateral breast prostheses show similar appearance are again collapsed. IMPRESSION: Stable exam.
== END | disposition home or self-care (01) ==
LOC: RADCTMAIN 09:35
PROVIDERS: ATTEND Internal Medicine
DX: R91.8 Other nonspecific abnormal finding of lung field (principal); Z88.6 Allergy status to analgesic agent
CPT/HCPCS: 71260; Q9967

== ENCOUNTER → 2019-06-30 | Outpatient (CLI) | payer BC ==
--- NOTE | 2019-07-01 13:45 | P.PAINPG ---
Subjective Progress Note Date: 06/30/19 This is follow-up visit for this patient with a history of severe and chronic low back pain secondary to Failed back surgery syndrome Lumbar area , lumbar spondylosis with facet arthropathy, We have done an interventional pain procedure radiofrequency ablation of the medial branch lumbar area . The patient currently on [place] 10/325 every 8 hours, Neurontin 600 mg 3 times a day, amitriptyline 50 mg every morning 100 mg daily at bedtime, Flexeril 10 mg 2 times a day and Motrin 600 mg every 8 hours when necessary for pain , she reported that the pain improved significantly after the radiofrequency, and her functional ability improved Patient denies any side effect of the medication , patient denies any excessive drowsiness or sleepiness, patient denies any suicidal ideation, Patient reported that the current medication is helping to control the pain and improve the activity of daily livings, Patient denies any motor or sensory deficit, denies any change in the bowel movement or urination, patient denies any fever or night sweats. Patient here today for follow-up visit and medication refill Objective - Exam Physical Examinations : -Constitutiona : Cooperative , not in acute distress . -HEENT : nech : supple , no Lymphadenopathy , normal thyroid size . : eyes : no ptosis , no icterus, no photophobia . - neurologic : Cranial nerve II to XII intact , no focal neurological deffecit . -psychatric : alert , oriented X 3 , appropriate affect , intact judgment and insight . -Lymphatic : no Lymphadenopathy . - musculoskeltal : Lumber spine moter stegnth lower extremities ,thigh and legs 5/5 Right side , 5/5 Left side Assessment and Plan Plan: Assessment and plan= chronic low back pain secondary to lumbar degenerative disc disease , lumbar spondylosis with lumbar facet arthropathy . Pain improved after radiofrequency ablation of the medial branch lumbar area chronic and current use of high-risk medication (opioids) Patient denies any side effects of the current pain medication and the current treatment/medication helping the patient to do activity of daily living , Diagnoses, prognosis, treatment options, including but not limited to physical therapy, medication management, interventional therapies, and surgery, were discussed with the patient All the questions answered The narcotic consent was signed and patient agreed and understood the side effects and complications of opioid treatment. Patient signed the narcotic agreement, and was orally counseled, not to ove ruse, not to abuse, not to Divert , not tp sell pain medication, and to take it as prescribed only, Patient was counseled not to drive or operate heavy equipment while using narcotic medication, and advised not to use alcohol or any Illicit drugs while using the narcotis. understanding that lack of compliance with any of the above instructions, will likely to cause discharge from, the pain service, not to renew his narcotic prescriptions MAPS Reviwed and it was apropriate . Medication managements= patient will be given prescription refills for [place] 10/325 every 8 hours when necessary dispense 90 with 1 refill, Motrin 600 mg 3 times a day , Neurontin 600 mg 3 times a day dispense 90 with 1 refill, amitriptyline 50 mg nightly 100 mg daily at bedtime, , Time with Patient: Less than 30 PQRS Measure Charge Sheet Measure #130: Documentation of Current Meds in Medical Chart: Patient's medications documented in chart Measure #226: Tobacco Use: Screen & Cessation Intervention: Pt not a tobacco user Measure #111: Pneumonia Vaccination: Pneumococcal vaccine NOT administered or previously given Measure #47: Advance Care Plan: Advance care planning discussed & documented, pt chose/unable to give Measure #412: Opioid Treatment Agreement: Documented signed opioid trtmnt agreemnt min once during opioid trtmnt Measure #408: Opioid Therapy Follow-up Evaluation: Patient had f/u eval minimum every 3 months during opioid therapy Measure #317: Preventitive Care & Scrn High Bld Press & F/U: Normal blood pressure, f/u not required Measure #128: Body Mass Index (BMI) Screening & Follow-up: BMI documented within normal parameters Measure #131: Pain Assessment & Follow-up: Pain positive & plan documented, Follow-up scheduled Measure #431: Unhealthy Alcohol Use Preventative Care & Scrn: Patient not identified as an unhealthy alcohol user PQRS Narrative: Smoking Status Current every day smoker Narcotic Agreement Date Signed 04/04/17 Pain Intensity [Back] 5 Scale Used Numeric (1 - 10) Hx Alcohol Use (MH) No Home Medications: Ambulatory Orders Multivitamins, Thera [Multivitamin] 1 tab PO QAM 11/24/13 Calcium Carbonate/Vitamin D3 [Caltrate 600 Plus D3 Tablet] 2 tab PO HS 06/26/17 Omeprazole [PriLOSEC] 40 mg PO DAILY PRN 08/22/18 Menthol [Bengay] 1 applic TOPICAL BID 03/04/19 Amitriptyline HCl [Elavil] 50 mg PO QAM #30 tab 06/30/19 Amitriptyline HCl [Elavil] 100 mg PO HS #30 tab 06/30/19 Cyclobenzaprine [Flexeril] 10 mg PO BID PRN #60 tab 06/30/19 Gabapentin [Neurontin] 600 mg PO TID #90 tablet 06/30/19 HYDROcodone/APAP 10-325MG [[place] 10-325] 1 tab PO Q8HR PRN 30 Days #90 tab 06/30/19 HYDROcodone/APAP 10-325MG [[place] 10-325] 1 tab PO Q8HR PRN 30 Days #90 tab 06/30/19 Ibuprofen [Motrin] 600 mg PO Q8HR PRN #90 tab 06/30/19 Controlled Substance Measures - Controlled Substance Measures Is patient prescribed a controlled substance at discharge?: Yes When asked, does pt state using other controlled substances?: No If prescribed controlled substance>3 days was MAPS reviewed?: Yes If Rx opioid, was Start Talking consent form obtained?: Yes If opioid is for acute pain is fill amount 7 days or less?: No Was information provided regarding opioid addiction?: Yes
== END | disposition home or self-care (01) ==
LOC: PNWHC3 11:04
PROVIDERS: ATTEND Specialist
DX: G89.29 Other chronic pain (principal); M51.36 Other intervertebral disc degeneration, lumbar region; M47.816 Spondylosis without myelopathy or radiculopathy, lumbar region; M46.96 Unspecified inflammatory spondylopathy, lumbar region; F17.200 Nicotine dependence, unspecified, uncomplicated; Z98.890 Other specified postprocedural states; Z79.891 Long term (current) use of opiate analgesic; Z79.1 Long term (current) use of non-steroidal anti-inflammatories (NSAID); Z79.899 Other long term (current) drug therapy
CPT/HCPCS: 99211

== ENCOUNTER → 2019-10-13 | Outpatient (CLI) | payer BC ==
--- NOTE | 2019-10-13 09:01 | P.PAINPG ---
Subjective Progress Note Date: 10/13/19 THIS ENCOUNTER WAS PERFORMED A TELEMEDICINE VISIT VIA SECURE TWO-WAY VIDEO AND AUDIO TO MINIMIZE RISK AND TRANSMISSION OF COVID-19. This is follow-up visit for this 59-year-old female patient with a history of severe and chronic low back pain secondary to Failed back surgery syndrome Lumbar area , lumbar spondylosis with facet arthropathy, We have done an interventional pain procedure radiofrequency ablation of the medial branch lumbar area, in April 2019 and May 2019 . She reports ongoing relief from these procedures. Pain currently located in low back, L>R, radiating to left posterior thigh, rated as 3-8/10, associated with burning in L foot, described as a deep ache. Pain worse with sitting in recliner, better with medications, ice, hot showers. She continues to exercise. The patient currently on [place] 10/325 every 8 hours, Neurontin 600 mg 3 times a day, amitriptyline 50 mg every morning 100 mg daily at bedtime, Flexeril 10 mg 2 times a day and Motrin 600 mg every 8 hours when necessary for pain Patient denies any side effect of the medication , patient denies any excessive drowsiness or sleepiness, patient denies any suicidal ideation, Patient reported that the current medication is helping to control the pain and improve the activity of daily livings, Patient denies any motor or sensory deficit, denies any change in the bowel movement or urination, patient denies any fever or night sweats. Review of systems is negative for chest pain, shortness of breath, new onset weakness, numbness/tingling, abdominal pain, malaise, fever, night sweats, chills, homicidal or suicidal ideation, or bowel or bladder incontinence. Objective Physical exam: Constitutional: Healthy appearing, well developed, alert, in no acute distress Psychiatric: Judgement and insight intact, alert and oriented Mood and Affect: mood normal, affect appropriate Head and Face: Inspection: normocephalic atraumatic, extraocular movement intact Respiratory: Breathing non-labored nondyspneic Skin: Head and Neck: skin with no lesions or rash Gait: Able to walk without assistive device Neurologic: Sensation grossly intact per patient in C3-T1 dermatomes Assessment and Plan Plan: Assessment and plan= chronic low back pain secondary to lumbar degenerative disc disease , lumbar spondylosis with lumbar facet arthropathy . Pain improved after radiofrequency ablation of the medial branch lumbar area . She will call to schedule repeat lumbar RFA next month-- left side first. chronic and current use of high-risk medication (opioids) Patient denies any side effects of the current pain medication and the current treatment/medication helping the patient to do activity of daily living , Narcotic agreement and is on file MAPS Reviewed and it was appropriate . Medication managements= patient will be given prescription refills for [place] 10/325 every 8 hours when necessary dispense 90 with 1 refill, Motrin 600 mg 3 times a day , Neurontin 600 mg 3 times a day dispense 90 with 1 refill, amitriptyline 50 mg nightly 100 mg daily at bedtime, Patient was counseled to limit use of NSAIDS due to association with worse outcomes from COVID. She was counseled on continuing exercise. PQRS Measure Charge Sheet PQRS Narrative: Smoking Status Current every day smoker Narcotic Agreement Date Signed 04/04/17 Hx Alcohol Use (MH) No Home Medications: Ambulatory Orders Multivitamins, Thera [Multivitamin] 1 tab PO QAM 11/24/13 Calcium Carbonate/Vitamin D3 [Caltrate 600 Plus D3 Tablet] 2 tab PO HS 06/26/17 Omeprazole [PriLOSEC] 40 mg PO DAILY PRN 08/22/18 Menthol [Bengay] 1 applic TOPICAL BID 03/04/19 Gabapentin [Neurontin] 600 mg PO TID #90 tablet 06/30/19 Amitriptyline HCl [Elavil] 50 mg PO QAM #30 tab 10/13/19 Amitriptyline HCl [Elavil] 100 mg PO HS #30 tab 10/13/19 Cyclobenzaprine [Flexeril] 10 mg PO BID PRN #60 tab 10/13/19 Gabapentin 600 mg PO TID #90 tab 10/13/19 HYDROcodone/APAP 10-325MG [[place] 10-325] 1 tab PO Q8HR PRN 30 Days #90 tab 10/13/19 HYDROcodone/APAP 10-325MG [[place] 10-325] 1 tab PO Q8HR PRN 30 Days #90 tab 10/13/19 Ibuprofen [Motrin] 600 mg PO Q8HR PRN #90 tab 10/13/19 Controlled Substance Measures - Controlled Substance Measures Is patient prescribed a controlled substance at discharge?: Yes When asked, does pt state using other controlled substances?: No If prescribed controlled substance>3 days was MAPS reviewed?: Yes If Rx opioid, was Start Talking consent form obtained?: Yes If opioid is for acute pain is fill amount 7 days or less?: No Was information provided regarding opioid addiction?: Yes
== END | disposition home or self-care (01) ==
LOC: PNWHC3 06:48
PROVIDERS: ATTEND Anesthesiology
DX: Z53.9 Procedure and treatment not carried out, unspecified reason (principal)

== ENCOUNTER → 2019-12-03 | Outpatient (CLI) | payer BC ==
--- NOTE | 2019-12-03 09:07 | P.PAINPG ---
Subjective Progress Note Date: 12/03/19 This is follow-up visit for this patient with a history of severe and chronic low back pain secondary she is diagnosed with , lumbar spondylosis with facet arthropathy, We have done an interventional pain procedure radiofrequency ablation of the medial branch lumbar area . The patient currently on [place] 10/325 every 8 hours, Neurontin 600 mg 3 times a day, amitriptyline 50 mg every morning 100 mg daily at bedtime, Flexeril 10 mg 2 times a day and Motrin 600 mg every 8 hours when necessary for pain , she reported that the pain improved significantly after the radiofrequency, and her functional ability improved Patient denies any side effect of the medication , patient denies any excessive drowsiness or sleepiness, patient denies any suicidal ideation, Patient reported that the current medication is helping to control the pain and improve the activity of daily livings, Patient denies any motor or sensory deficit, denies any change in the bowel movement or urination, patient denies any fever or night sweats. Patient here today for follow-up visit and medication refill , patient was scheduled to have repeat radiofrequency ablation of the medial lumbar area on the left side , to be done next week but she reported that she feels good and the medication helping to control her pain, and she preferred to please schedule a radiofrequency ablation Objective - Vital Signs Vital signs: Vital Signs Temp Pulse 104 H 12/03/19 08:40 Resp 18 12/03/19 08:40 BP 133/80 12/03/19 08:40 Pulse Ox 97 12/03/19 08:40 - Exam -Constitutiona : Cooperative , not in acute distress . -HEENT : nech : supple , no Lymphadenopathy , normal thyroid size . : eyes : no ptosis , no icterus, no photophobia . - neurologic : Cranial nerve II to XII intact , no focal neurological deffecit . -psychatric : alert , oriented X 3 , appropriate affect , intact judgment and insight . -Lymphatic : no Lymphadenopathy . - musculoskeltal : Lumber spine moter stegnth lower extremities ,thigh and legs 5/5 Right side , 5/5 Left side Assessment and Plan Plan: chronic low back pain secondary to lumbar degenerative disc disease , lumbar spondylosis with lumbar facet arthropathy . Pain improved after radiofrequency ablation of the medial branch lumbar area chronic and current use of high-risk medication (opioids) Patient denies any side effects of the current pain medication and the current treatment/medication helping the patient to do activity of daily living , Diagnoses, prognosis, treatment options, including but not limited to physical therapy, medication management, interventional therapies, and surgery, were discussed with the patient All the questions answered The narcotic consent was signed and patient agreed and understood the side effects and complications of opioid treatment. Patient signed the narcotic agreement, and was orally counseled, not to overuse, not to abuse, not to Divert , not tp sell pain medication, and to take it as prescribed only, Patient was counseled not to drive or operate heavy equipment while using narcotic medication, and advised not to use alcohol or any Illicit drugs while using the narcotis. understanding that lack of compliance with any of the above instructions, will likely to cause discharge from, the pain service, not to renew his narcotic prescriptions MAPS Reviwed and it was apropriate . Medication managements= patient will be given prescription refills for [place] 10/325 every 8 hours when necessary dispense 90 with 1 refill, Motrin 600 mg 3 times a day , Neurontin 600 mg 3 times a day dispense 90 with 1 refill, amitriptyline 50 mg nightly 100 mg daily at bedtime Urine drug screen ordered today, , Time with Patient: Less than 30 PQRS Measure Charge Sheet Measure #130: Documentation of Current Meds in Medical Chart: Patient's medications documented in chart Measure #226: Tobacco Use: Screen & Cessation Intervention: Pt screened for tobacco use AND intervention given Measure #111: Pneumonia Vaccination: Pneumococcal vaccine NOT administered or previously given Measure #47: Advance Care Plan: Advance care planning discussed & documented, pt chose/unable to give Measure #412: Opioid Treatment Agreement: Documented signed opioid trtmnt agreemnt min once during opioid trtmnt Measure #408: Opioid Therapy Follow-up Evaluation: Patient had f/u eval minimum every 3 months during opioid therapy Measure #317: Preventitive Care & Scrn High Bld Press & F/U: Normal blood pressure, f/u not required Measure #128: Body Mass Index (BMI) Screening & Follow-up: BMI documented within normal parameters Measure #131: Pain Assessment & Follow-up: Pain positive & plan documented, Follow-up scheduled Measure #431: Unhealthy Alcohol Use Preventative Care & Scrn: Patient not identified as an unhealthy alcohol user PQRS Narrative: Smoking Status Current every day smoker Narcotic Agreement Date Signed 12/03/19 Blood Pressure 133/80 Pain Intensity [Lower Back] 3 Scale Used Numeric (1 - 10) Hx Alcohol Use (MH) No Home Medications: Ambulatory Orders Multivitamins, Thera [Multivitamin] 1 tab PO QAM 11/24/13 Calcium Carbonate/Vitamin D3 [Caltrate 600 Plus D3 Tablet] 2 tab PO HS 06/26/17 Omeprazole [PriLOSEC] 40 mg PO DAILY PRN 08/22/18 Menthol [Bengay] 1 applic TOPICAL BID 03/04/19 Amitriptyline HCl [Elavil] 50 mg PO QAM #30 tab 12/03/19 Amitriptyline HCl [Elavil] 100 mg PO HS #30 tab 12/03/19 Cyclobenzaprine [Flexeril] 10 mg PO BID PRN #60 tab 12/03/19 Gabapentin 600 mg PO TID #90 tab 12/03/19 HYDROcodone/APAP 10-325MG [[place] 10-325] 1 tab PO Q8HR PRN 30 Days #90 tab 12/03/19 HYDROcodone/APAP 10-325MG [[place] 10-325] 1 tab PO Q8HR PRN 30 Days #90 tab 12/03/19 Ibuprofen [Motrin] 600 mg PO Q8HR PRN #90 tab 12/03/19 Controlled Substance Measures - Controlled Substance Measures Is patient prescribed a controlled substance at discharge?: Yes When asked, does pt state using other controlled substances?: No If prescribed controlled substance>3 days was MAPS reviewed?: Yes If Rx opioid, was Start Talking consent form obtained?: Yes If opioid is for acute pain is fill amount 7 days or less?: No Was information provided regarding opioid addiction?: Yes
[2019-12-05 09:20] VITALS: BP 133/80; PULSE 104; RESP 18
== END | disposition home or self-care (01) ==
LOC: PNWHC3 08:22
PROVIDERS: ATTEND Specialist
DX: G89.29 Other chronic pain (principal); M51.36 Other intervertebral disc degeneration, lumbar region; M47.816 Spondylosis without myelopathy or radiculopathy, lumbar region; F11.90 Opioid use, unspecified, uncomplicated; F17.200 Nicotine dependence, unspecified, uncomplicated; Z98.890 Other specified postprocedural states; Z79.899 Other long term (current) drug therapy
CPT/HCPCS: 80307; 99211; G0482

== ENCOUNTER → 2020-01-28 | Outpatient (CLI) | payer BC ==
[2020-01-28 10:45] VITALS: BP 107/58; PULSE 94; RESP 18; TEMP 98.3
--- NOTE | 2020-01-31 07:00 | P.PN ---
Subjective Progress Note Date: 01/28/20 This is follow-up visit for this patient with a history of severe and chronic low back pain secondary she is diagnosed with , lumbar spondylosis with facet arthropathy, failed back surgery syndrome lumbar area, more than a year ago have done an interventional pain procedure radiofrequency ablation of the medial branch lumbar area . The patient currently on [place] 10/325 every 8 hours, Neurontin 600 mg 3 times a day, amitriptyline 50 mg every morning 100 mg daily at bedtime, Flexeril 10 mg 2 times a day and Motrin 600 mg every 8 hours when necessary for pain.. Patient denies any side effect of the medication , patient denies any excessive drowsiness or sleepiness, patient denies any suicidal ideation, Patient reported that the current medication is helping to control the pain and improve the activity of daily livings, Patient denies any motor or sensory deficit, denies any change in the bowel movement or urination, patient denies any fever or night sweats. Patient here today for follow-up visit and medication refill, she reported that currently her pain is increased in the low back area and the pain interferes with the quality of life - Exam -Constitutiona : Cooperative , not in acute distress . -HEENT : nech : supple , no Lymphadenopathy , normal thyroid size . : eyes : no ptosis , no icterus, no photophobia . - neurologic : Cranial nerve II to XII intact , no focal neurological deffecit . -psychatric : alert , oriented X 3 , appropriate affect , intact judgment and insight . -Lymphatic : no Lymphadenopathy . - musculoskeltal : Lumber spine moter stegnth lower extremities ,thigh and legs 5/5 Right side , 5/5 Left side Facet loading test positive in the lumbar area bilaterally Tenderness over the sacroiliac joint bi laterally Assessment and plan chronic low back pain secondary to lumbar degenerative disc disease, failed back surgery syndrome lumbar area , lumbar spondylosis with lumbar facet arthropathy . Pain improved after radiofrequency ablation of the medial branch lumbar area done more than a year ago chronic and current use of high-risk medication (opioids) Patient denies any side effects of the current pain medication and the current treatment/medication helping the patient to do activity of daily living , Diagnoses, prognosis, treatment options, including but not limited to physical therapy, medication management, interventional therapies, and surgery, were discussed with the patient All the questions answered The narcotic consent was signed and patient agreed and understood the side effects and complications of opioid treatment. Patient signed the narcotic agreement, and was orally counseled, not to overuse, not to abuse, not to Divert , not tp sell pain medication, and to take it as prescribed only, Patient was counseled not to drive or operate heavy equipment while using narcotic medication, and advised not to use alcohol or any Illicit drugs while using the narcotis. understanding that lack of compliance with any of the above instructions, will likely to cause discharge from, the pain service, not to renew his narcotic prescriptions MAPS Reviwed and it was apropriate . Medication managements= patient will be given prescription refills for [place] 10/325 every 8 hours when necessary dispense 90 with 1 refill, Motrin 600 mg 3 times a day , Neurontin 600 mg 3 times a day dispense 90 with 1 refill, amitriptyline 50 mg nightly 100 mg daily at bedtime Patient could benefit from repeat RFA of the medial branch lumbar area at L3 , L4,l5 bilaterally (to target the facet joint at the 45 and L5-S1 , Time with Patient: Less than 30 PQRS Measure Charge Sheet Measure #130: Documentation of Current Meds in Medical Chart: Patient's medications documented in chart Measure #226: Tobacco Use: Screen & Cessation Intervention: Pt screened for tobacco use AND intervention given Measure #111: Pneumonia Vaccination: Pneumococcal vaccine NOT administered or previously given Measure #47: Advance Care Plan: Advance care planning discussed & documented, pt chose/unable to give Measure #412: Opioid Treatment Agreement: Documented signed opioid trtmnt agreemnt min once during opioid trtmnt Measure #408: Opioid Therapy Follow-up Evaluation: Patient had f/u eval minimum every 3 months during opioid therapy Measure #317: Preventitive Care & Scrn High Bld Press & F/U: Normal blood pressure, f/u not required Measure #128: Body Mass Index (BMI) Screening & Follow-up: BMI documented within normal parameters Measure #131: Pain Assessment & Follow-up: Pain positive & plan documented, Follow-up scheduled Measure #431: Unhealthy Alcohol Use Preventative Care & Scrn: Patient not identified as an unhealthy alcohol user PQRS Narrative: - Controlled Substance Measures Is patient prescribed a controlled substance at discharge?: Yes When asked, does pt state using other controlled substances?: No If prescribed controlled substance>3 days was MAPS reviewed?: Yes If Rx opioid, was Start Talking consent form obtained?: Yes If opioid is for acute pain is fill amount 7 days or less?: No Was information provided regarding opioid addiction?: Yes Objective - Vital Signs Vital signs: Vital Signs Temp 98.3 F 01/28/20 10:39 Pulse 94 01/28/20 10:39 Resp 18 01/28/20 10:39 BP 107/58 01/28/20 10:39 Pulse Ox 95 01/28/20 10:39
== END | disposition home or self-care (01) ==
LOC: PNWHC3 10:32
PROVIDERS: ATTEND Specialist
DX: G89.29 Other chronic pain (principal); M51.36 Other intervertebral disc degeneration, lumbar region; M47.816 Spondylosis without myelopathy or radiculopathy, lumbar region; M96.1 Postlaminectomy syndrome, not elsewhere classified; Z98.890 Other specified postprocedural states
CPT/HCPCS: 99211

== ENCOUNTER 2020-02-24 06:54 | Day surgery (SDC) | payer BC ==
[2020-02-20 13:50] VITALS: BMI 21.6
[~2020-02-24 06:54] MED LIST changes: -LIDOCAINE 4% (PF) 5 ML AMP ONE; -MIDAZOLAM 2 MG/2 ML VIAL ONE; -fentaNYL (PF) 50 MCG/ML 2 ML AMP ONE
[2020-02-24 07:19] VITALS: RESP 16; TEMP 97.7
[2020-02-24] MEDS ORDERED: LIDOCAINE 1% (10MG/ML) FOR IV START INTRADERMA ONE (07:22)
[2020-02-24] MEDS ORDERED: MIDAZOLAM 2 MG/2 ML VIAL ONE (07:46)
[2020-02-24] MEDS ORDERED: methylPREDNISolone ACETATE 40 MG/ML 1 ML VIAL ONE (07:46)
[2020-02-24] MEDS ORDERED: ROPIVACAINE 5MG/ML 20ML VIAL ONE (07:46)
[2020-02-24] MEDS ORDERED: fentaNYL (PF) 50 MCG/ML 2 ML AMP ONE (07:46)
--- NOTE | 2020-02-24 08:22 | P.PCN ---
Date of Procedure: 02/24/20 Procedure(s) Performed: PREOPERATIVE DIAGNOSIS: 1-Lumbar Spondylosis with Facet Arthropathy without myelopathy. 2- Lumber degenerative disc disease POSTOPERATIVE DIAGNOSIS: 1- Lumbar Spondylosis with Facet Arthropathy without myelopathy. 2- Lumber degenerative disc disease PROCEDURES : Bilateral Radiofrequency thermocoagulation, L3 , L4 , and L5 medial branch, with fluoroscopic guidance (fluoroscopy images available in the radiology department) ( to denervate the facet joint at L4-5 ,and L5-S1 levels ) ANESTHESIA: Moderate sedation with intravenous versed 2 mg and fentaneyl 50 mcg, and local infiltration with Ropivacaine 0.5 % . EBL: Minimal PROCEDURE INDICATION: The patient with low back pain secondary to lumbar facet arthropathy who had more than 50% relief of her pain with previous diagnostic lumbar medial branch block with bupivacaine. PROCEDURE DESCRIPTION / TECHNIQUE: The patient was seen and identified in the preoperative area. Risks, benefits, complications, including but not limited to risk of infection ,bleeding , allergic reactions to the medications and no complete pain releife , and alternatives were discussed with the patient, the patient agreed to proceed with the procedure and signed the consent. IV was started. Vital signs remained stable throughout the procedure. Patient was taken to the OR and time out was completed. The patient was placed in the prone position on the procedure table. The lumber area was prepped and draped in the usual sterile fashion. . Vital signs were closely monitored during the procedure .IV sedation was used during the procedure to decrease patients anxiety. Using AP and then oblique fluoroscopy, the ``eye of the Manolo dog corresponding to the connection between the superior and transverse articular processes of right L3, L4, and L5 were identified, marked, and localized with 1% lidocaine. Subsequently, a 18 [id number] radiofrequency cannula with a 10- mm active tip was advanced guided by fluoroscopy to each of the``eyes of the Manolo dog at right L3, L4, and L5. Each site then underwent sensory testing at 50 Hz and 0 to 1 volt and motor testing at 2.5 Hz and 0 to 3 volt with local stimulation, but no radicular symptoms down the legs. Thereafter each sites underwent radiofrequency thermocoagulation at 80 degrees celsius for 90 seconds after injecting 0.5 ml of PF Ropivacaine 1ml, then after the thermocoagulation done , 1 ml of the block solution containing Depo-Medrol 40 mg and 3 ml of Ropivacaine 0.5% was injected at the right L3 , L4 , and L5 , levels after negative aspiration of CSF and blood and with no paresthesias. Cannulas were retracted while injecting lidocaine 1% until the needle is out. The same procedure was repeated at the level of Left L3, L4, and L5 levels. At the end of the procedure, the skin was cleansed and bandages were applied. COMPLICATIONS: No acute complications. DISPOSITION / PLANS: The patient was placed in a supine position and transferred to the recovery area in a stable condition for observation and was discharged from the recovery room after meeting discharge criteria. Home discharge instructions given to the patient by the staff. The patient was reexamined prior to discharge. The patient will schedule a follow up in the clinic in 2-4 weeks.
[2020-02-24] MEDS ORDERED: IV FLUID CONTINUATION 800 ML IV ONE (08:28)
--- NOTE | 2020-02-24 08:40 | FL ---
Fluoroscopy HISTORY: Pain 14 seconds fluoroscopy time supplied to the referring clinician. 6 intraoperative C-arm images docum ent the procedure. See dictated report from anesthesia.
[2020-02-24 08:44] VITALS: BP 117/72; PULSE 85
== END 2020-02-24 08:57 | disposition home or self-care (01) ==
LOC: ORPAIN 06:54
PROVIDERS: ATTEND Specialist
DX: M47.816 Spondylosis without myelopathy or radiculopathy, lumbar region (principal); M51.36 Other intervertebral disc degeneration, lumbar region; Z88.6 Allergy status to analgesic agent; Z78.0 Asymptomatic menopausal state
CPT/HCPCS: 99152; 99153

== ENCOUNTER → 2020-03-10 | Outpatient (CLI) | payer BC ==
--- NOTE | 2020-03-10 09:16 | P.PN ---
Subjective Progress Note Date: 03/10/20 this is a 59-year-old lady with history of chronic lower back pain status post back surgery. The patient had lumbar medial branch RFAin a few weeks ago. Her pain has improved since the procedure and it is easier controlled now using her medications.he patient still has the chronic mild weakness in the left leg and occasional numbness with no changes recently . The patient still takes [place], Flexeril,Neurontin, and Elavil. She has to drive to [place] to attend her son's wedding and she is concerned about how difficult the trip will be regarding her pain. Patient denies new-onset weakness, bowel/bladder incontinence, or any other signs or symptoms of cauda equina syndrome. There are no signs of acute intoxication, and no indications of medication diversion or overuse. In addition to above, 13-point review of systems is also negative for chest pain, shortness of breath, changes in vision, changes in hearing, new onset weakness, abdominal pain, diarrhea, extreme fatigue, malaise, fever, skin changes, homicidal or suicidal ideation, or bowel or bladder incontinence. Vital Signs: Reviewed in EMR Gen: AAOx3, NAD HEENT: PERRLA,hearing grossly normal Pulm: resp unlabored Neck: supple, trachea midline Neuro exam of the lower extremities:mild weakness in the left knee flexion and extension to 4 out of 5 and the rest of the muscle strength exam is normal. Normal and symmetrical deep tendon reflexes in the lower extremities. Straight leg raising test: negative bilaterally Neuro: CN II-XII grossly intact, Imaging: Reviewed in EMR/chart Assessment: failed back surgery syndrome Lumbar spondylosis without myelopathy Opioid dependence Plan: 1. Explanation: Opioid and psychological risk scores were reviewed. Diagnoses, prognoses, and multiple treatment options including but not limited to physical therapy, interventional therapies, adjuvant medical therapies, narcotic medication therapies, and surgery were discussed with the patient and all questions were answered to the patient's satisfaction. 2. Opioid agreement: Signed with the patient and the patient is warned not to use opioids while driving or before driving and not to combine opioids with benzodiazepines or alcohol. 3. Counseling: The patient was counseled extensively on SMOKING CESSATION, BODY MASS INDEX, EXERCISE. Specifically, the patient was instructed regarding the importance of smoking cessation, obesity, and exercise in the context of both chronic pain and overall health. 4. Procedures: none 5. Consultations: None 6. Investigations: None 7. Medications: I'll give the patient a prescription for a Medrol Dosepak in case she feels increasing pain on the road then she can use it.the patient is not due for her other medications yet. 8. Disposition: return to clinic in 3-4 weeks 9. Maps were reviewed and were appropriate. Controlled Substance Measures Is patient prescribed a controlled substance at discharge?: Yes When asked, does pt state using other controlled substances?: No If prescribed controlled substance>3 days was MAPS reviewed?: Yes If Rx opioid, was Start Talking consent form obtained?: Yes If opioid is for acute pain is fill amount 7 days or less?: No Was information provided regarding opioid addiction?: Yes Objective - Vital Signs Vital signs: Intake & Output 03/09/20 03/10/20 03/10/20 18:59 06:59 18:59 Weight 58.967 kg
[2020-03-10 09:32] VITALS: BP 108/70; PULSE 95; RESP 14; TEMP 98
== END | disposition home or self-care (01) ==
LOC: PNWHC3 08:25
PROVIDERS: ATTEND Anesthesiology
DX: M96.1 Postlaminectomy syndrome, not elsewhere classified (principal); M47.816 Spondylosis without myelopathy or radiculopathy, lumbar region; F11.20 Opioid dependence, uncomplicated; Z79.52 Long term (current) use of systemic steroids
CPT/HCPCS: 99211

== ENCOUNTER → 2020-03-24 | Outpatient (CLI) | payer BC ==
[2020-03-24 13:22] VITALS: BP 128/83; PULSE 92; RESP 14; TEMP 98
--- NOTE | 2020-03-24 13:25 | P.PAINPG ---
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 She reports her back pain is been about the same. There are no symptoms. She has pain with walking bending is standing for long present time. She denies any new symptoms. Denies any new weakness. Medications to improve her pain. She has neuropathy which is improved with the current medications which include Elavil as well as gabapentin. She denies any side effects from his medications. She uses ibuprofen as needed. She does not use it every day. She tolerates the medication well without any side effects as well. Her VAS today is about 6 out of 10. She reports over the last month is been anywhere between 3 and 6 out of 10 most days. Objective - Exam General: Awake and alert oriented 3 no distress Respiratory exam: No audible wheezing no accessory muscle usage Cardiovascular exam: regular rate, palpable bilateral pulses, no lower extremity edema Abdominal exam: No distention nontender to palpation Cervical spine: Normal alignment, Spurling's negative, facet loading negative, Mobile Application Tester strength is 5/5, mujica negative Lumbar spine: Loss of lumbar lordosis, normal alignment, tender to palpation over bilateral paraspinal muscles, facet loading is positive bilaterally. Straight leg raise is negative. Limited range of motion due to pain with flexion, extension and side bending. Sacroiliac joints: Nontender to palpation, REX is negative, [place] negative Neuro exam: Normal sensation in bilateral upper extremities, deep tendon reflexes are 2+ bilateral upper extremities. Normal sensation in bilateral lower extremities. Deep tendon reflexes are 2+ in lower extremities Psych exam: Cooperative, appropriate mood Assessment and Plan Assessment: #1 lumbar spondylosis without myelopathy #2 peripheral neuropathy #3 lumbar radiculopathy #4 chronic opioid dependence Plan: We will continue the current medications have not made any changes. We'll check maps and urine drug screens of been appropriate. PQRS Measure Charge Sheet Measure #130: Documentation of Current Meds in Medical Chart: Patient's medications documented in chart Measure #226: Tobacco Use: Screen & Cessation Intervention: Pt screened for tobacco use AND intervention given Measure #111: Pneumonia Vaccination: Pneumococcal vaccine administered or previously received Measure #47: Advance Care Plan: Advance care planning discussed & documented, pl an or surrogate given Measure #412: Opioid Treatment Agreement: Documented signed opioid trtmnt agreemnt min once during opioid trtmnt Measure #408: Opioid Therapy Follow-up Evaluation: Patient had f/u eval minimum every 3 months during opioid therapy Measure #317: Preventitive Care & Scrn High Bld Press & F/U: Normal blood pressure, f/u not required Measure #128: Body Mass Index (BMI) Screening & Follow-up: BMI documented within normal parameters Measure #131: Pain Assessment & Follow-up: Pain positive & plan documented Measure #431: Unhealthy Alcohol Use Preventative Care & Scrn: Patient not identified as an unhealthy alcohol user PQRS Narrative: Smoking Status Current every day smoker Narcotic Agreement Date Signed 12/03/19 Scale Used Numeric (1 - 10) Hx Alcohol Use (MH) Yes: RARE Home Medications: Ambulatory Orders Multivitamins, Thera [Multivitamin] 1 tab PO QAM 11/24/13 Calcium Carbonate/Vitamin D3 [Caltrate 600 Plus D3 Tablet] 2 tab PO HS 06/26/17 Omeprazole [PriLOSEC] 40 mg PO DAILY PRN 08/22/18 Menthol [Bengay] 1 applic TOPICAL BID 03/04/19 Amitriptyline HCl [Elavil] 50 mg PO QAM #30 tab 03/24/20 Amitriptyline HCl [Elavil] 100 mg PO HS #30 tab 03/24/20 Cyclobenzaprine [Flexeril] 10 mg PO BID PRN #60 tab 03/24/20 Gabapentin 600 mg PO TID #90 tab 03/24/20 HYDROcodone/APAP 10-325MG [[place] 10-325] 1 tab PO Q8HR PRN 30 Days #90 tab 03/24/20 HYDROcodone/APAP 10-325MG [[place] 10-325] 1 tab PO Q8HR PRN 30 Days #90 tab 03/24/20 Ibuprofen [Motrin] 600 mg PO Q8HR PRN #90 tab 03/24/20 Controlled Substance Measures - Controlled Substance Measures Is patient prescribed a controlled substance at discharge?: Yes When asked, does pt state using other controlled substances?: No If prescribed controlled substance>3 days was MAPS reviewed?: Yes If Rx opioid, was Start Talking consent form obtained?: Yes If opioid is for acute pain is fill amount 7 days or less?: No Was information provided regarding opioid addiction?: Yes
== END | disposition home or self-care (01) ==
LOC: PNWHC3 12:55
PROVIDERS: ATTEND Hospitalist
DX: M47.26 Other spondylosis with radiculopathy, lumbar region (principal); G62.9 Polyneuropathy, unspecified; F11.20 Opioid dependence, uncomplicated; F17.200 Nicotine dependence, unspecified, uncomplicated; Z79.899 Other long term (current) drug therapy
CPT/HCPCS: 99211

== ENCOUNTER → 2020-06-02 | Outpatient (CLI) | payer BC ==
[2020-06-02 09:45] VITALS: BP 110/78; PULSE 120; RESP 20; TEMP 98.8
--- NOTE | 2020-06-02 09:59 | P.PN ---
Subjective Progress Note Date: 06/02/20 This is a 59-year-old lady with history of chronic lower back pain with radiation to the lower extremities bilaterally with occasional numbness and tingling in the lower extremities. The patient's pain has been well-controlled with a combination of oral opioids and interventional pain procedures. The pat ient recently had lumbar medial branch RFA which resulted in very good pain relief. The patient is sleepy with her current dose of Neurontin 600 mg 3 times a day. Patient denies new-onset weakness, bowel/bladder incontinence, or any other signs or symptoms of cauda equina syndrome. There are no signs of acute intoxication, and no indications of medication diversion or overuse. In addition to above, 13-point review of systems is also negative for chest pain, shortness of breath, changes in vision, changes in hearing, new onset weakness, abdominal pain, diarrhea, extreme fatigue, malaise, fever, skin changes, homicidal or suicidal ideation, or bowel or bladder incontinence. Vital Signs: Reviewed in EMR Gen: AAOx3, NAD HEENT: PERRLA,hearing grossly normal Pulm: resp unlabored Neck: supple, trachea midline Neuro exam of the lower extremities: Decreased muscle strength to 4 out of 5 for knee flexion and extension bilaterally and normal ankle flexion and extension bilaterally. Straight leg raising test: Praveen's test: Range of motion of the lumbar spine: Facet loading test: Tenderness in the paravertebral musculature: Positive tenderness in the lumbar paravertebral musculature bilaterally Neuro: CN II-XII grossly intact, Imaging: Reviewed in EMR/chart Assessment: Lumbar postlaminectomy pain syndrome Opioid dependence Lumbar spondylosis without radiculopathy Plan: 1. Explanation: Opioid and psychological risk scores were reviewed. Diagnoses, prognoses, and multiple treatment options including but not limited to physical therapy, interventional therapies, adjuvant medical therapies, narcotic medication therapies, and surgery were discussed with the patient and all questions were answered to the patient's satisfaction. 2. Opioid agreement: Signed with the patient and the patient is warned not to use opioids while driving or before driving and not to combine opioids with benzodiazepines or alcohol. 3. Counseling: The patient was counseled extensively on SMOKING CESSATION, BODY MASS INDEX, EXERCISE. Specifically, the patient was instructed regarding the importance of smoking cessation, obesity, and exercise in the context of both chronic pain and overall health. 4. Procedures: None for now 5. Consultations: None 6. Investigations: UDS today 7. Medications: Decreased Neurontin to 400 mg 3 times a day and continue Elavil 100 mg daily at bedtime, report from 600 mg twice a day when necessary pain, Flexeril 10 mg twice a day, and [place] 10 mg 3 times a day if needed for pain. 8. Disposition: Return to clinic in 2 months 9. Maps were reviewed and were appropriate. Controlled Substance Measures Is patient prescribed a controlled substance at discharge?: Yes When asked, does pt state using other controlled substances?: No If prescribed controlled substance>3 days was MAPS reviewed?: Yes If Rx opioid, was Start Talking consent form obtained?: Yes If opioid is for acute pain is fill amount 7 days or less?: No Was information provided regarding opioid addiction?: Yes Objective - Vital Signs Vital signs: Vital Signs Temp 98.8 F 06/02/20 09:39 Pulse 120 H 06/02/20 09:39 Resp 20 06/02/20 09:39 BP 110/78 06/02/20 09:39 Pulse Ox 97 06/02/20 09:39
== END | disposition home or self-care (01) ==
LOC: PNWHC3 09:34
PROVIDERS: ATTEND Anesthesiology
DX: M96.1 Postlaminectomy syndrome, not elsewhere classified (principal); M47.816 Spondylosis without myelopathy or radiculopathy, lumbar region; F11.20 Opioid dependence, uncomplicated; Z79.899 Other long term (current) drug therapy
CPT/HCPCS: 80307; 99212; G0482

== ENCOUNTER → 2020-07-28 | Outpatient (CLI) | payer BC ==
--- NOTE | 2020-07-28 10:42 | P.PAINPG ---
Subjective Progress Note Date: 07/28/20 This is a 59-year-old lady with history of chronic lower back pain with radiation to the lower extremities bilaterally with occasional numbness and tingling in the lower extremities. The patient's pain has been well-controlled with a combination of oral opioids and interventional pain procedures. The p atient recently had lumbar medial branch RFA which resulted in very good pain relief on 02/23. In our last visit we decreased neurontin to 400 mg TID, and refilled flexeril 10 mg BID, elavil 100 mg QHS and Alpine 10 TID. She'll she is doing well today overall. She has noticed that she has some pain in her right side radiating down her right lower extremity. She knows that she had a caudal epidural past and that helped significantly with this radicular pain. She would like to repeat that procedure and then hopefully RFA since it has almost been 6 months. Patient denies new-onset weakness, bowel/bladder incontinence, or any other signs or symptoms of cauda equina syndrome. There are no signs of acute intoxication, and no indications of medication diversion or overuse. In addition to above, 13-point review of systems is also negative for chest pain, shortness of breath, changes in vision, changes in hearing, new onset weakness, abdominal pain, diarrhea, extreme fatigue, malaise, fever, skin changes, homicidal or suicidal ideation, or bowel or bladder incontinence. Vital Signs: Reviewed in EMR Gen: AAOx3, NAD HEENT: PERRLA,hearing grossly normal Pulm: resp unlabored Neck: supple, trachea midline Neuro exam of the lower extremities: Decreased muscle strength to 4 out of 5 for knee flexion and extension bilaterally and normal ankle flexion and extension bilaterally. Straight leg raising test: positive right side Praveen's test:negative Range of motion of the lumbar spine:intact Facet loading test: positive bilaterally Tenderness in the paravertebral musculature: Positive tenderness in the lumbar paravertebral musculature bilaterally Neuro: CN II-XII grossly intact, reflexes intact Imaging: Reviewed in EMR/chart Assessment: Lumbar postlaminectomy pain syndrome Opioid dependence Lumbar spondylosis without radiculopathy Plan: 1. Explanation: Opioid and psychological risk scores were reviewed. Diagnoses, prognoses, and multiple treatment options including but not limited to physical therapy, interventional therapies, adjuvant medical therapies, narcotic medication therapies, and surgery were discussed with the patient and all questions were answered to the patient's satisfaction. 2. Opioid agreement: Signed with the patient and the patient is warned not to use opioids while driving or before driving and not to combine opioids with benzodiazepines or alcohol. 3. Counseling: The patient was counseled extensively on SMOKING CESSATION, BODY MASS INDEX, EXERCISE. Specifically, the patient was instructed regarding the importance of smoking cessation, obesity, and exercise in the context of both chronic pain and overall health. 4. Procedures: We will schedule her for caudal epidural steroid injection with lysis of adhesions. After that we can schedule her for her bilateral L4-L5 and L5-S1 rated frequency ablations. She last had it on February 23 so we can do this procedure August 23 or later 5. Consultations: None 6. Investigations: none 7. Medications:Refill Neurontin 400 mg 3 times a day and continue Elavil 100 mg daily at bedtime, Flexeril 10 mg twice a day, and Alpine 10 mg 3 times a day if needed for pain. 8. Disposition: Return to clinic in 2 months 9. Maps were reviewed and were appropriate. I spent 32 minutes reviewing the patient's chart, going over patient's medications, talking to the patient, and discussing plan of care Controlled Substance Measures Is patient prescribed a controlled substance at discharge?: Yes When asked, does pt state using other controlled substances?: No If prescribed controlled substance>3 days was MAPS reviewed?: Yes If Rx opioid, was Start Talking consent form obtained?: Yes If opioid is for acute pain is fill amount 7 days or less?: No Was information provided regarding opioid addiction?: Yes Objective - Vital Signs Vital signs: Intake & Output 07/26/20 07/27/20 07/27/20 18:59 06:59 18:59 Weight 55.338 kg PQRS Measure Charge Sheet PQRS Narrative: Smoking Status Current every day smoker Narcotic Agreement Date Signed 12/03/19 Pain Intensity [Lower Back] 6 Scale Used Numeric (1 - 10) Hx Alcohol Use (MH) Yes: RARE Home Medications: Ambulatory Orders Multivitamins, Thera [Multivitamin] 1 tab PO QAM 11/24/13 Calcium Carbonate/Vitamin D3 [Caltrate 600 Plus D3 Tablet] 2 tab PO HS 06/26/17 Omeprazole [PriLOSEC] 40 mg PO DAILY PRN 08/22/18 Menthol [Bengay] 1 applic TOPICAL BID 03/04/19 Amitriptyline HCl [Elavil] 100 mg PO HS #30 tab 07/28/20 Cyclobenzaprine [Flexeril] 10 mg PO BID PRN #60 tab 07/28/20 Gabapentin [Neurontin] 400 mg PO TID 30 Days #90 cap 07/28/20 HYDROcodone/APAP 10-325MG [Alpine 10-325] 1 tab PO Q8H PRN 30 Days #90 tab 07/28/20 HYDROcodone/APAP 10-325MG [Alpine 10-325] 1 tab PO Q8HR PRN 30 Days #90 tab 07/28/20 Ibuprofen [Motrin] 600 mg PO Q8HR PRN #90 tab 07/28/20 Controlled Substance Measures - Controlled Substance Measures Is patient prescribed a controlled substance at discharge?: Yes When asked, does pt state using other controlled substances?: No If prescribed controlled substance>3 days was MAPS reviewed?: Yes If Rx opioid, was Start Talking consent form obtained?: Yes If opioid is for acute pain is fill amount 7 days or less?: No Was information provided regarding opioid addiction?: Yes
== END ==
CPT/HCPCS: 99211

== ENCOUNTER → 2020-09-15 | Outpatient (CLI) | payer BC ==
[2020-09-15 10:35] VITALS: BP 100/79; PULSE 95; RESP 16
--- NOTE | 2020-09-15 10:54 | P.PN ---
Subjective Progress Note Date: 09/15/20 This is follow-up visit for this patient with a history of severe and chronic low back pain secondary she is diagnosed with , lumbar spondylosis with facet arthropathy, failed back surgery syndrome lumbar area, more than a year ago have done an interventional pain procedure radiofrequency ablation of the medial branch lumbar area . The patient currently on [place] 10/325 every 8 hours, Neurontin 600 mg 3 times a day, amitriptyline 50 mg every morning 100 mg daily at bedtime, Flexeril 10 mg 2 times a day and Motrin 600 mg every 8 hours when necessary for pain.. Patient denies any side effect of the medication , patient denies any excessive drowsiness or sleepiness, patient denies any suicidal ideation, Patient reported that the current medication is helping to control the pain and improve the activity of daily livings, Patient denies any motor or sensory deficit, denies any change in the bowel movement or urination, patient denies any fever or night sweats. Patient here today for follow-up visit and medication refill, she reported that currently her pain is increased in the low back area and the pain interferes with the quality of life Physical examination -Constitutiona : Cooperative , not in acute distress . -HEENT : nech : supple , no Lymphadenopathy , normal thyroid size . : eyes : no ptosis , no icterus, no photophobia . - neurologic : Cranial nerve II to XII intact , no focal neurological deffecit . -psychatric : alert , oriented X 3 , appropriate affect , intact judgment and insight . -Lymphatic : no Lymphadenopathy . - musculoskeltal : Lumber spine moter stegnth lower extremities ,thigh and legs 5/5 Right side , 5/5 Left side Facet loading test positive in the lumbar area bilaterally Tenderness over the sacroiliac joint bilaterally Straight leg raising test positive bilaterally at 30 Praveen test positive bilaterally. Sacroiliac joint compression test positive bilaterally Assessment and plan chronic low back pain secondary to lumbar degenerative disc disease, failed back surgery syndrome lumbar area , lumbar spondylosis with lumbar facet arthropathy chronic and current use of high-risk medication (opioids) Patient denies any side effects of the current pain medication and the current treatment/medication helping the patient to do activity of daily living , Diagnoses, prognosis, treatment options, including but not limited to physical therapy, medication management, interventional therapies, and surgery, were discussed with the patient All the questions answered The narcotic consent was signed and patient agreed and understood the side effects and complications of opioid treatment. Patient signed the narcotic agreement, and was orally counseled, not to overuse, not to abuse, not to Divert , not tp sell pain medication, and to take it as prescribed only, Patient was counseled not to drive or operate heavy equipment while using narcotic medication, and advised not to use alcohol or any Illicit drugs while using the narcotis. understanding that lack of compliance with any of the above instructions, will likely to cause discharge from, the pain service, not to renew his narcotic prescriptions MAPS Reviwed and it was apropriate . Medication managements= patient will be given prescription refills for [place] 10/325 every 8 hours when necessary dispense 90 with 1 refill, Motrin 600 mg 3 times a day , Neurontin 600 mg 3 times a day dispense 90 with 1 refill, amitriptyline 50 mg nightly 100 mg daily at bedtime Patient could benefit from repeat RFA of the medial branch lumbar area at L3 , L4,l5 bilaterally (to target the facet joint at L 45 and L5-S1 ) , Time with Patient: Less than 30 PQRS Measure Charge Sheet Measure #130: Documentation of Current Meds in Medical Chart: Patient's medications documented in chart Measure #226: Tobacco Use: Screen & Cessation Intervention: Pt screened for tobacco use AND intervention given Measure #111: Pneumonia Vaccination: Pneumococcal vaccine NOT administered or previously given Measure #47: Advance Care Plan: Advance care planning discussed & documented, pt chose/unable to give Measure #412: Opioid Treatment Agreement: Documented signed opioid trtmnt agreemnt min once during opioid trtmnt Measure #408: Opioid Therapy Follow-up Evaluation: Patient had f/u eval minimum every 3 months during opioid therapy Measure #317: Preventitive Care & Scrn High Bld Press & F/U: Normal blood pressure, f/u not required Measure #128: Body Mass Index (BMI) Screening & Follow-up: BMI documented within normal parameters Measure #131: Pain Assessment & Follow-up: Pain positive & plan documented, Follow-up scheduled Measure #431: Unhealthy Alcohol Use Preventative Care & Scrn: Patient not identified as an unhealthy alcohol user PQRS Narrative: Objective - Vital Signs Vital signs: Vital Signs Temp Pulse 95 09/15/20 10:31 Resp 16 09/15/20 10:31 BP 100/79 09/15/20 10:31 Pulse Ox 97 09/15/20 10:31 Intake & Output 09/14/20 09/15/20 09/15/20 18:59 06:59 18:59 Weight 56.699 kg
== END ==
LOC: PNWHC3 09:42
PROVIDERS: ATTEND Specialist
DX: M51.36 Other intervertebral disc degeneration, lumbar region (principal); M96.1 Postlaminectomy syndrome, not elsewhere classified; M47.816 Spondylosis without myelopathy or radiculopathy, lumbar region; G89.29 Other chronic pain; Z79.891 Long term (current) use of opiate analgesic; F17.200 Nicotine dependence, unspecified, uncomplicated
CPT/HCPCS: 99211

== ENCOUNTER 2020-11-05 06:28 | Day surgery (SDC) | payer BC ==
[2020-11-04 09:06] VITALS: BMI 21.6
[2020-11-05 06:48] VITALS: RESP 16; TEMP 98.4
[2020-11-05] MEDS ORDERED: LACTATED RINGERS 1,000 ML IV ONE (06:54)
[2020-11-05] MEDS ORDERED: LIDOCAINE 1% (10MG/ML) FOR IV START INTRADERMA ONE (06:54)
[2020-11-05] MEDS ORDERED: ROPIVACAINE 5MG/ML 20ML VIAL ONE (07:31)
[2020-11-05] MEDS ORDERED: methylPREDNISolone ACETATE 40 MG/ML 1 ML VIAL ONE (07:31)
[2020-11-05] MEDS ORDERED: MIDAZOLAM 2 MG/2 ML VIAL ONE (07:31)
[2020-11-05] MEDS ORDERED: fentaNYL (PF) 50 MCG/ML 2 ML AMP ONE (07:31)
[2020-11-05] MEDS ORDERED: LACTATED RINGERS 1,000 ML IV SCH (07:53)
--- NOTE | 2020-11-05 07:59 | P.PCN ---
Date of Procedure: 11/05/20 Procedure(s) Performed: PREOPERATIVE DIAGNOSIS: 1-Lumbar Spondylosis with Facet Arthropathy without myelopathy. 2- Lumber degenerative disc disease. POSTOPERATIVE DIAGNOSIS: 1- Lumbar Spondylosis with Facet Arthropathy without myelopathy. 2- Lumber degenerative disc disease. PROCEDURES : Bilateral Radiofrequency thermocoagulation, L3 , L4 , and L5 medial branch, with fluoroscopic guidance (fluoroscopy images available in the radiology department) ( to denervate the facet joint at L4-5 ,and L5-S1 levels ). ANESTHESIA: monitered anesthesia care as per anesthesia department . EBL: Minimal PROCEDURE INDICATION: The patient with low back pain secondary to lumbar facet arthropathy who had more than 50% relief of her pain with previous diagnostic lumbar medial branch block with bupivacaine. PROCEDURE DESCRIPTION / TECHNIQUE: The patient was seen and identified in the preoperative area. Risks, benefits, complications, including but not limited to risk of infection ,bleeding , allergic reactions to the medications and no complete pain releife , and alternatives were discussed with the patient, the patient agreed to proceed with the procedure and signed the consent. IV was started. Vital signs remained stable throughout the procedure. Patient was taken to the OR and time out was completed. The patient was placed in the prone position on the procedure table. The lumber area was prepped and draped in the usual sterile fashion. . Vital signs were closely monitored during the procedure .IV sedation was used during the procedure to decrease patients anxiety. Using AP and then oblique fluoroscopy, the ``eye of the Manolo dog corresponding to the connection between the superior and transverse articular processes of right L3, L4, and L5 were identified, marked, and localized with 1% lidocaine. Subsequently, a [id number] radiofrequency cannula with a 10- mm active tip was advanced guided by fluoroscopy to each of the``eyes of the Manolo dog at right L3, L4, and L5. Each site then underwent sensory testing at 50 Hz and 0 to 1 volt and motor testing at 2.5 Hz and 0 to 3 volt with local stimulation, but no radicular symptoms down the legs. Thereafter each sites underwent radiofrequency thermocoagulation at 80 degrees celsius for 90 seconds after injecting 0.5 ml of PF Ropivacaine 1ml, then after the thermocoagulation done , 1 ml of the block solution containing Depo-Medrol 40 mg and 3 ml of Ropivacaine 0.5% was injected at the right L3 , L4 , and L5 , levels after negative aspiration of CSF and blood and with no paresthesias. Cannulas were retracted while injecting lidocaine 1% until the needle is out. The same procedure was repeated at the level of Left L3, L4, and L5 levels. At the end of the procedure, the skin was cleansed and bandages were applied. COMPLICATIONS: No acute complications. DISPOSITION / PLANS: The patient was placed in a supine position and transferred to the recovery area in a stable condition for observation and was discharged from the recovery room after meeting discharge criteria. Home discharge instructions given to the patient by the staff. The patient was reexamined prior to discharge. The patient will schedule a follow up in the clinic in 2-4 weeks.
[2020-11-05] MEDS ORDERED: IV FLUID CONTINUATION 1,000 ML IV ONE (08:01)
[2020-11-05 08:40] VITALS: BP 116/73; PULSE 79
--- NOTE | 2020-11-05 08:50 | FL ---
EXAMINATION TYPE: FL guided pain mgmt statistic DATE OF EXAM: 11/05/2020 HISTORY: Fluoroscopy time 10 seconds of fluoroscopy provided. IMPRESSION: 1. Fluoroscopy time.
== END 2020-11-05 08:40 | disposition home or self-care (01) ==
LOC: ORPAIN 06:28
PROVIDERS: ATTEND Specialist
DX: M47.816 Spondylosis without myelopathy or radiculopathy, lumbar region (principal); M51.36 Other intervertebral disc degeneration, lumbar region; Z88.6 Allergy status to analgesic agent; F17.200 Nicotine dependence, unspecified, uncomplicated; K21.9 Gastro-esophageal reflux disease without esophagitis; Z97.2 Presence of dental prosthetic device (complete) (partial); Z79.1 Long term (current) use of non-steroidal anti-inflammatories (NSAID); Z79.891 Long term (current) use of opiate analgesic; Z79.899 Other long term (current) drug therapy
CPT/HCPCS: 64635; 64636; J2250; J1030; J3010; J2795

== ENCOUNTER → 2020-11-10 | Outpatient (CLI) | payer BC ==
--- NOTE | 2020-11-10 11:11 | P.PN ---
Subjective Progress Note Date: 11/10/20 This is follow-up visit for this patient with a history of severe and chronic low back pain secondary she is diagnosed with , lumbar spondylosis with facet arthropathy, failed back surgery syndrome lumbar area, status post radiofrequency ablation of the medial branch lumbar area . Patient reported that her pain improved after the RFA The patient currently on [place] 10/325 every 8 hours, Neurontin 600 mg 3 times a day, amitriptyline 50 mg every morning 100 mg daily at bedtime, Flexeril 10 mg 2 times a day and Motrin 600 mg every 8 hours when necessary for pain.. Patient denies any side effect of the medication , patient denies any excessive drowsiness or sleepiness, patient denies any suicidal ideation, Patient reported that the current medication is helping to control the pain and improve the activity of daily livings, Patient denies any motor or sensory deficit, denies any change in the bowel movement or urination, patient denies any fever or night sweats. Patient here today for follow-up visit and medication refill, she reported that currently her pain is increased in the low back area and the pain interferes with the quality of life Physical examination -Constitutiona : Cooperative , not in acute distress . -HEENT : nech : supple , no Lymphadenopathy , normal thyroid size . : eyes : no ptosis , no icterus, no photophobia . - neurologic : Cranial nerve II to XII intact , no focal neurological deffecit . -psychatric : alert , oriented X 3 , appropriate affect , intact judgment and insight . -Lymphatic : no Lymphadenopathy . - musculoskeltal : Lumber spine moter stegnth lower extremities ,thigh and legs 5/5 Right side , 5/5 Left side Assessment and plan chronic low back pain secondary to lumbar degenerative disc disease, failed back surgery syndrome lumbar area , lumbar spondylosis with lumbar facet arthropathy Status post RFA of the medial branch lumbar area chronic and current use of high-risk medication (opioids) Patient denies any side effects of the current pain medication and the current treatment/medication helping the patient to do activity of daily living , Diagnoses, prognosis, treatment options, including but not limited to physic al therapy, medication management, interventional therapies, and surgery, were discussed with the patient All the questions answered The narcotic consent was signed and patient agreed and understood the side effects and complications of opioid treatment. Patient signed the narcotic agreement, and was orally counseled, not to overuse, not to abuse, not to Divert , not tp sell pain medication, and to take it as prescribed only, Patient was counseled not to drive or operate heavy equipment while using narcotic medication, and advised not to use alcohol or any Illicit drugs while using the narcotis. understanding that lack of compliance with any of the above instructions, will likely to cause discharge from, the pain service, not to renew his narcotic prescriptions MAPS Reviwed and it was apropriate . Medication managements= patient will be given prescription refills for [place] 10/325 every 8 hours when necessary dispense 90 with 1 refill, Motrin 600 mg 3 times a day , Neurontin 600 mg 3 times a day dispense 90 with 1 refill, amitriptyline 50 mg nightly 100 mg daily at bedtime to follow-up in the pain clinic in 2 months , Time with Patient: Less than 30 PQRS Measure Charge Sheet Measure #130: Documentation of Current Meds in Medical Chart: Patient's medications documented in chart Measure #226: Tobacco Use: Screen & Cessation Intervention: Pt screened for tobacco use AND intervention given Measure #111: Pneumonia Vaccination: Pneumococcal vaccine NOT administered or previously given Measure #47: Advance Care Plan: Advance care planning discussed & documented, pt chose/unable to give Measure #412: Opioid Treatment Agreement: Documented signed opioid trtmnt agreemnt min once during opioid trtmnt Measure #408: Opioid Therapy Follow-up Evaluation: Patient had f/u eval minimum every 3 months during opioid therapy Measure #317: Preventitive Care & Scrn High Bld Press & F/U: Normal blood pressure, f/u not required Measure #128: Body Mass Index (BMI) Screening & Follow-up: BMI documented within normal parameters Measure #131: Pain Assessment & Follow-up: Pain positive & plan documented, Follow-up scheduled Measure #431: Unhealthy Alcohol Use Preventative Care & Scrn: Patient not identified as an unhealth Objective - Vital Signs Vital signs: Intake & Output 11/09/20 11/10/20 11/10/20 18:59 06:59 18:59 Weight 55.338 kg
[2020-11-10 11:13] VITALS: BP 123/76; PULSE 80; RESP 18; TEMP 98
== END ==
LOC: PNWHC3 09:53
PROVIDERS: ATTEND Specialist
DX: G89.29 Other chronic pain (principal); M51.36 Other intervertebral disc degeneration, lumbar region; M96.1 Postlaminectomy syndrome, not elsewhere classified; M47.816 Spondylosis without myelopathy or radiculopathy, lumbar region; F17.200 Nicotine dependence, unspecified, uncomplicated; Z79.891 Long term (current) use of opiate analgesic; Z98.890 Other specified postprocedural states; Z88.8 Allergy status to other drugs, medicaments and biological substances
CPT/HCPCS: 99211

== ENCOUNTER → 2021-01-05 | Outpatient (CLI) | payer BC ==
--- NOTE | 2021-01-05 11:21 | P.PN ---
Subjective Progress Note Date: 01/05/21 This is follow-up visit for this patient with a history of severe and chronic low back pain secondary she is diagnosed with , lumbar spondylosis with facet arthropathy, failed back surgery syndrome lumbar area, status post radiofrequency ablation of the medial branch lumbar area . Patient reported that her pain improved after the RFA The patient currently on [place] 10/325 every 8 hours, Neurontin 600 mg 3 times a day, amitriptyline 50 mg every morning 100 mg daily at bedtime, Flexeril 10 mg 2 times a day and Motrin 600 mg every 8 hours when necessary for pain.. Patient denies any side effect of the medication , patient denies any excessive drowsiness or sleepiness, patient denies any suicidal ideation, Patient reported that the current medication is helping to control the pain and improve the activity of daily livings, Patient denies any motor or sensory deficit, denies any change in the bowel movement or urination, patient denies any fever or night sweats. Patient here today for follow-up visit and medication refill, she reported that currently her pain is increased in the low back area and the pain interferes with the quality of life Physical examination -Constitutiona : Cooperative , not in acute distress . -HEENT : nech : supple , no Lymphadenopathy , normal thyroid size . : eyes : no ptosis , no icterus, no photophobia . - neurologic : Cranial nerve II to XII intact , no focal neurological deffecit . -psychatric : alert , oriented X 3 , appropriate affect , intact judgment and insight . -Lymphatic : no Lymphadenopathy . - musculoskeltal : Lumber spine moter stegnth lower extremities ,thigh and legs 5/5 Right side , 5/5 Left side Assessment and plan chronic low back pain secondary to lumbar degenerative disc disease, failed back surgery syndrome lumbar area , lumbar spondylosis with lumbar facet arthropathy Status post RFA of the medial branch lumbar area chronic and current use of high-risk medication (opioids) Patient denies any side effects of the current pain medication and the current treatment/medication helping the patient to do activity of daily living , Diagnoses, prognosis, treatment options, including but not limited to physic al therapy, medication management, interventional therapies, and surgery, were discussed with the patient All the questions answered The narcotic consent was signed and patient agreed and understood the side effects and complications of opioid treatment. Patient signed the narcotic agreement, and was orally counseled, not to overuse, not to abuse, not to Divert , not tp sell pain medication, and to take it as prescribed only, Patient was counseled not to drive or operate heavy equipment while using narcotic medication, and advised not to use alcohol or any Illicit drugs while using the narcotis. understanding that lack of compliance with any of the above instructions, will likely to cause discharge from, the pain service, not to renew his narcotic prescriptions MAPS Reviwed and it was apropriate . Medication managements= patient will be given prescription refills for [place] 10/325 every 8 hours when necessary dispense 90 with 1 refill, Motrin 600 mg 3 times a day , Neurontin 600 mg 3 times a day dispense 90 with 1 refill, amitriptyline 50 mg nightly 100 mg daily at bedtime she will follow-up in the pain clinic in 2 months , Time with Patient: Less than 30 PQRS Measure Charge Sheet Measure #130: Documentation of Current Meds in Medical Chart: Patient's medications documented in chart Measure #226: Tobacco Use: Screen & Cessation Intervention: Pt screened for tobacco use AND intervention given Measure #111: Pneumonia Vaccination: Pneumococcal vaccine NOT administered or previously given Measure #47: Advance Care Plan: Advance care planning discussed & documented, pt chose/unable to give Measure #412: Opioid Treatment Agreement: Documented signed opioid trtmnt agreemnt min once during opioid trtmnt Measure #408: Opioid Therapy Follow-up Evaluation: Patient had f/u eval minimum every 3 months during opioid therapy Measure #317: Preventitive Care & Scrn High Bld Press & F/U: Normal blood pressure, f/u not required Measure #128: Body Mass Index (BMI) Screening & Follow-up: BMI documented within normal parameters Measure #131: Pain Assessment & Follow-up: Pain positive & plan documented, Follow-up scheduled Measure #431: Unhealthy Alcohol Use Preventative Care & Scrn: Patient not identified as an unhealth Objective - Vital Signs Vital signs: Intake & Output 01/04/21 01/05/21 01/05/21 18:59 06:59 18:59 Weight 56.699 kg
[2021-01-05 12:05] VITALS: BP 125/80; PULSE 90; RESP 18; TEMP 98
== END ==
LOC: PNWHC3 09:44
PROVIDERS: ATTEND Specialist
DX: M51.36 Other intervertebral disc degeneration, lumbar region (principal); M47.816 Spondylosis without myelopathy or radiculopathy, lumbar region; G89.29 Other chronic pain; M96.1 Postlaminectomy syndrome, not elsewhere classified; Z98.890 Other specified postprocedural states; Z79.891 Long term (current) use of opiate analgesic; Z88.6 Allergy status to analgesic agent
CPT/HCPCS: 80307; 99212; G0482

== ENCOUNTER → 2021-03-02 | Outpatient (CLI) | payer BC ==
[2021-03-02 09:49] VITALS: BP 104/70; PULSE 90; RESP 18; TEMP 97.1
--- NOTE | 2021-03-02 10:06 | P.PN ---
Subjective Progress Note Date: 03/02/21 This is follow-up visit for this patient with a history of severe and chronic low back pain secondary she is diagnosed with , lumbar spondylosis with facet arthropathy, failed back surgery syndrome lumbar area, status post radiofrequency ablation of the medial branch lumbar area . Patient reported that her pain improved after the RFA The patient currently on [place] 10/325 every 8 hours, Neurontin 400 mg 3 times a day, amitriptyline 50 mg every morning 100 mg daily at bedtime, Flexeril 10 mg 2 times a day and Motrin 600 mg every 8 hours when necessary for pain.. Patient denies any side effect of the medication , patient denies any excessive drowsiness or sleepiness, patient denies any suicidal ideation, Patient reported that the current medication is helping to control the pain and improve the activity of daily livings, Patient denies any motor or sensory deficit, denies any change in the bowel movement or urination, patient denies any fever or night sweats. Patient here today for follow-up visit and medication refill, she reported that currently her pain is increased in the low back area and the pain interferes with the quality of life Physical examination -Constitutiona : Cooperative , not in acute distress . -HEENT : nech : supple , no Lymphadenopathy , normal thyroid size . : eyes : no ptosis , no icterus, no photophobia . - neurologic : Cranial nerve II to XII intact , no focal neurological deffecit . -psychatric : alert , oriented X 3 , appropriate affect , intact judgment and insight . -Lymphatic : no Lymphadenopathy . - musculoskeltal : Lumber spine moter stegnth lower extremities ,thigh and legs 5/5 Right side , 5/5 Left side Assessment and plan chronic low back pain secondary to lumbar degenerative disc disease, failed back surgery syndrome lumbar area , lumbar spondylosis with lumbar facet arthropathy Status post RFA of the medial branch lumbar area chronic and current use of high-risk medication (opioids) Patient denies any side effects of the current pain medication and the current treatment/medication helping the patient to do activity of daily living , Diagnoses, prognosis, treatment options, including but not limited to physic al therapy, medication management, interventional therapies, and surgery, were discussed with the patient All the questions answered The narcotic consent was signed and patient agreed and understood the side effects and complications of opioid treatment. Patient signed the narcotic agreement, and was orally counseled, not to overuse, not to abuse, not to Divert , not tp sell pain medication, and to take it as prescribed only, Patient was counseled not to drive or operate heavy equipment while using narcotic medication, and advised not to use alcohol or any Illicit drugs while using the narcotis. understanding that lack of compliance with any of the above instructions, will likely to cause discharge from, the pain service, not to renew his narcotic prescriptions MAPS Reviwed and it was apropriate . Medication managements= patient will be given prescription refills for [place] 10/325 every 8 hours when necessary dispense 90 with 1 refill, Motrin 600 mg 3 times a day , Neurontin 400 mg 3 times a day dispense 90 with 1 refill, amitriptyline 50 mg nightly 100 mg daily at bedtime she will follow-up in the pain clinic in 2 months , Time with Patient: Less than 30 PQRS Measure Charge Sheet Measure #130: Documentation of Current Meds in Medical Chart: Patient's medications documented in chart Measure #226: Tobacco Use: Screen & Cessation Intervention: Pt screened for tobacco use AND intervention given Measure #111: Pneumonia Vaccination: Pneumococcal vaccine NOT administered or previously given Measure #47: Advance Care Plan: Advance care planning discussed & documented, pt chose/unable to give Measure #412: Opioid Treatment Agreement: Documented signed opioid trtmnt agreemnt min once during opioid trtmnt Measure #408: Opioid Therapy Follow-up Evaluation: Patient had f/u eval minimum every 3 months during opioid therapy Measure #317: Preventitive Care & Scrn High Bld Press & F/U: Normal blood pressure, f/u not required Measure #128: Body Mass Index (BMI) Screening & Follow-up: BMI documented within normal parameters Measure #131: Pain Assessment & Follow-up: Pain positive & plan documented, Follow-up scheduled Measure #431: Unhealthy Alcohol Use Preventative Care & Scrn: Patient not identified as an unhealth Objective - Vital Signs Vital signs: Vital Signs Temp 97.1 F L 03/02/21 09:42 Pulse 90 03/02/21 09:42 Resp 18 03/02/21 09:42 BP 104/70 03/02/21 09:42 Pulse Ox 97 03/02/21 09:42
== END ==
LOC: PNWHC3 08:50
PROVIDERS: ATTEND Specialist
DX: M51.36 Other intervertebral disc degeneration, lumbar region (principal); M47.816 Spondylosis without myelopathy or radiculopathy, lumbar region; G89.29 Other chronic pain; M96.1 Postlaminectomy syndrome, not elsewhere classified; Z79.891 Long term (current) use of opiate analgesic; F17.200 Nicotine dependence, unspecified, uncomplicated; Z88.6 Allergy status to analgesic agent
CPT/HCPCS: 99211

== ENCOUNTER → 2021-04-27 | Outpatient (CLI) | payer BC ==
[2021-04-27 10:02] VITALS: BP 128/81; PULSE 89; RESP 18; TEMP 98.6
--- NOTE | 2021-04-27 10:11 | P.PN ---
Subjective Progress Note Date: 04/27/21 This is follow-up visit for this patient with a history of severe and chronic low back pain secondary she is diagnosed with , lumbar spondylosis with facet arthropathy, failed back surgery syndrome lumbar area, status post radiofrequency ablation of the medial branch lumbar area . Patient reported that her pain improved after the RFA The patient currently on Carlos 10/325 every 8 hours, Neurontin 400 mg 3 times a day, amitriptyline 50 mg every morning 100 mg daily at bedtime, Flexeril 10 mg 2 times a day and Motrin 600 mg every 8 hours when necessary for pain.. Patient denies any side effect of the medication , patient denies any excessive drowsiness or sleepiness, patient denies any suicidal ideation, Patient reported that the current medication is helping to control the pain and improve the activity of daily livings, Patient denies any motor or sensory deficit, denies any change in the bowel movement or urination, patient denies any fever or night sweats. Patient here today for follow-up visit and medication refill, she reported that currently her pain is increased in the low back area and the pain interferes with the quality of life Physical examination -Constitutiona : Cooperative , not in acute distress . -HEENT : nech : supple , no Lymphadenopathy , normal thyroid size . : eyes : no ptosis , no icterus, no photophobia . - neurologic : Cranial nerve II to XII intact , no focal neurological deffecit . -psychatric : alert , oriented X 3 , appropriate affect , intact judgment and insight . -Lymphatic : no Lymphadenopathy . - musculoskeltal : Lumber spine moter stegnth lower extremities ,thigh and legs 5/5 Right side , 5/5 Left side Assessment and plan chronic low back pain secondary to lumbar degenerative disc disease, failed back surgery syndrome lumbar area , lumbar spondylosis with lumbar facet arthropathy Status post RFA of the medial branch lumbar area chronic and current use of high-risk medication (opioids) Patient denies any side effects of the current pain medication and the current treatment/medication helping the patient to do activity of daily living , Diagnoses, prognosis, treatment options, including but not limited to physic al therapy, medication management, interventional therapies, and surgery, were discussed with the patient All the questions answered The narcotic consent was signed and patient agreed and understood the side effects and complications of opioid treatment. Patient signed the narcotic agreement, and was orally counseled, not to overuse, not to abuse, not to Divert , not tp sell pain medication, and to take it as prescribed only, Patient was counseled not to drive or operate heavy equipment while using narcotic medication, and advised not to use alcohol or any Illicit drugs while using the narcotis. understanding that lack of compliance with any of the above instructions, will likely to cause discharge from, the pain service, not to renew his narcotic prescriptions MAPS Reviwed and it was apropriate . Medication managements= patient will be given prescription refills for Carlos 10/325 every 8 hours when necessary dispense 90 with 1 refill, Motrin 600 mg 3 times a day , Neurontin 400 mg 3 times a day dispense 90 with 1 refill, amitriptyline 50 mg nightly 100 mg daily at bedtime she will follow-up in the pain clinic in 2 months , Time with Patient: Less than 30 PQRS Measure Charge Sheet Measure #130: Documentation of Current Meds in Medical Chart: Patient's medications documented in chart Measure #226: Tobacco Use: Screen & Cessation Intervention: Pt screened for tobacco use AND intervention given Measure #111: Pneumonia Vaccination: Pneumococcal vaccine NOT administered or previously given Measure #47: Advance Care Plan: Advance care planning discussed & documented, pt chose/unable to give Measure #412: Opioid Treatment Agreement: Documented signed opioid trtmnt agreemnt min once during opioid trtmnt Measure #408: Opioid Therapy Follow-up Evaluation: Patient had f/u eval minimum every 3 months during opioid therapy Measure #317: Preventitive Care & Scrn High Bld Press & F/U: Normal blood pressure, f/u not required Measure #128: Body Mass Index (BMI) Screening & Follow-up: BMI documented within normal parameters Measure #131: Pain Assessment & Follow-up: Pain positive & plan documented, Follow-up scheduled Measure #431: Unhealthy Alcohol Use Preventative Care & Scrn: Patient not identified as an unhealth Objective - Vital Signs Vital signs: Vital Signs Temp 98.6 F 04/27/21 09:58 Pulse 89 04/27/21 09:58 Resp 18 04/27/21 09:58 BP 128/81 04/27/21 09:58 Pulse Ox 98 04/27/21 09:58 Intake & Output 04/26/21 04/27/21 04/27/21 18:59 06:59 18:59 Weight 56.699 kg
== END ==
LOC: PNWHC3 09:22
PROVIDERS: ATTEND Specialist
DX: G89.29 Other chronic pain (principal); M51.36 Other intervertebral disc degeneration, lumbar region; M96.1 Postlaminectomy syndrome, not elsewhere classified; M47.816 Spondylosis without myelopathy or radiculopathy, lumbar region; F17.200 Nicotine dependence, unspecified, uncomplicated; Z79.891 Long term (current) use of opiate analgesic; Z98.890 Other specified postprocedural states; Z88.6 Allergy status to analgesic agent
CPT/HCPCS: 99211

== ENCOUNTER → 2021-06-22 | Outpatient (CLI) | payer BC ==
--- NOTE | 2021-06-22 11:23 | P.PN ---
Subjective Progress Note Date: 06/22/21 Principal diagnosis: A 60 yr old female with a history of severe and chronic low back pain secondary to lumbar degenerative disc diseases and lumbar spondylosis with facet arthropathy presents today for medication refills. Pain level is 6 /10, dull/ achy/ sore in the lower lumbar spine and shoots in a sharp/ shooting character towards the buttocks bilaterally. Pain is provoked by bending, twisting or lifting. Pain is alleviated with medications, topicals, injections, rest, stretches, ice, heat and repositioning. Pt underwent a bilateral lumbar RFA in October, with significant pain relief and is interested in that procedure again. Interventional pain procedures completed include Patient is currently on Elavil 100mg QHS, Flexeril 10mg BID, Neurontin 400mg TID, Benson 10/325mg TID prn Patient denies any side effects of the medication(s), denies excessive drowsin ess or sleepiness, denies suicidal ideation and reports that the current pain medication is helping to control the pain and improve activities of daily living. Patient denies any motor or sensory deficits. Patient denies any fever or night sweats, denies any change in the bowel movements or urination. Physical Examination: -Constitutional: Cooperative. Not in acute distress . -HEENT: Neck is supple. No lymphadenopathy. No thyromegaly. Normal thyroid size. Eyes: No ptosis , no icterus, no photophobia. ENT: No auditory deficits. Normal oropharynx. No Thrush. - Respiratory: Chest clear to auscultations bilaterally. No wheezing. No rhonchi. - Cardiovascular: Regular rate and rhythm. S1 / S2 , no S3 , no S4. - Gastrointestinal: Abdomen soft no tenderness. Bowel sounds positive in all four quadrants. No organomegaly. - Genitourinary: Deferred. - Neurologic: Cranial nerve II to XII intact. No focal neurological deficits. - Psychatric: Alert & oriented x 3. Matching mood & appropriate affect. Judgment and insight intact. - Lymphatic: No Lymphadenopathy. - Musculoskeletal: Cervical spine: Muscle bulk/ tone/ strength in the bilateral upper extremities normal. Facet loading test cervical area positive. Lumbar spine: Motor bulk/ tone/ strength lower extremities , thigh and legs : 5/5 Deep tendon reflexes : Normal Knee Jerk. Normal Ankle Jerk . Lumbar Facet Loading Test positive over L3-L5 with jump reflex and muscle spasms bilaterally Straight Leg Raise: positive at 30 degree right side/ left side Adam test: positive right side / left side Range of motion: Flexion of the lumbar spine <90 degrees Range of motion: Extension of the lumbar spine <20 degrees Severe tenderness over the Sacroiliac joint: right side / left side Assessment and plan: Chronic low back pain secondary to lumbar degenerative disc disease , lumbar spondylosis with facet arthropathy without myelopathy Recommendation of bilateral RFA of L3-L5 Risks, benefits of procedure discussed and pt verbalized understanding Denied use of aspirin or blood thinners Chronic and current use of high-risk medication (Opioids). The patient was counseled about risk of opioid use, psychological risk associated with opioids and was orally counseled to not overuse , divert or sell medications. Pt is to store medication in a safe location. The patient is counseled against driving while using narcotic medications and also not to use alcohol or any illicit recreational drugs. Patient verbalized understanding that the lack of compliance will result in failure to renew narcotic prescription(s) as well as possible discharge from the clinic Diagnoses, prognosis and treatment options including but not limited to physical therapy, surgical interventions, interventional therapies and medication management including narcotics and adjuvant medication were discussed. All patient questions answered Last UDS reviewed and it was consistent MAPS reviewed and it was appropriate. Prescription refill for Benson 10/325mg TID #90 with 1 refill, Neurontin 400mg TID #90 with refill, Flexeril 10mg BID prn #60 with refill and Elavil 100mg QHS #30 with refill I have spent 31 minutes on patient care today. Dr Mesa was available by phone for the evaluation of this patient. The time was used to review the medical records including relevant urine studies and Prescription history (MAPs), review of the available imaging, evaluation and examination of the patient, coordination of care with the medical staff and if applicable referring physicians, as well as creation of the medical record PQRS Measure Charge Sheet PQRS Narrative: Smoking Status Current every day smoker Narcotic Agreement Date Signed 03/01/21 Pain Intensity [Lower Back] 7 Scale Used Numeric (1 - 10) Hx Alcohol Use (MH) Yes: RARE Home Medications: Ambulatory Orders Multivitamins, Thera [Multivitamin] 1 tab PO QAM 11/24/13 Calcium Carbonate/Vitamin D3 [Caltrate 600 Plus D3 Tablet] 2 tab PO HS 06/26/17 Omeprazole [PriLOSEC] 40 mg PO DAILY PRN 08/22/18 Menthol [Bengay] 1 applic TOPICAL BID PRN 03/04/19 Diclofenac Sodium [Voltaren Gel] 1 dose TOPICAL DAILY PRN #4 gram 11/10/20 Amitriptyline HCl [Elavil] 100 mg PO HS #30 tab 04/27/21 Cyclobenzaprine [Flexeril] 10 mg PO BID PRN #60 tab 04/27/21 Gabapentin [Neurontin] 400 mg PO TID 30 Days #90 cap 04/27/21 HYDROcodone/APAP 10-325MG [Benson 10-325] 1 tab PO Q8HR PRN 30 Days #90 tab 04/27/21
[2021-06-22 11:24] VITALS: BP 112/77; PULSE 98; RESP 16; TEMP 98.8
== END ==
LOC: PNWHC3 09:22
PROVIDERS: ATTEND Physician Assistant Medical
DX: G89.29 Other chronic pain (principal); M51.36 Other intervertebral disc degeneration, lumbar region; M47.816 Spondylosis without myelopathy or radiculopathy, lumbar region; F17.200 Nicotine dependence, unspecified, uncomplicated; Z79.891 Long term (current) use of opiate analgesic; Z88.5 Allergy status to narcotic agent
CPT/HCPCS: 99211

== ENCOUNTER → 2021-08-17 | Outpatient (CLI) | payer BC ==
[2021-08-17 10:25] VITALS: BP 117/84; PULSE 94; RESP 18; TEMP 98.4
--- NOTE | 2021-08-17 10:29 | P.PN ---
Subjective Progress Note Date: 08/17/21 Principal diagnosis: A 61 yr old female with a history of severe and chronic low back pain secondary to lumbar degenerative disc diseases and lumbar spondylosis with facet arthropathy presents today for lower back pain and medication refills. Pain level is 4 out of 10 in intensity, deep, constant in the lower aspects of her lumbar spine but elevates as high as 9 out of 10 in intensity with bending and lifting. Pain also has a shooting burning character to the lower extremities bilaterally. Pain is alleviated with medications, topicals, ice and heat alternation, physical therapy in the past, home stretching regimen, massage therapy and rest. Interventional pain procedures completed include BL RFA L4-L5, L5-S1. Patient is currently on [place] 10/325 #90, Neurontin 400mg #90, Flexeril 10mg #60 and Elavil 100mg QHS Patient denies any side effects of the medication(s), denies excessive drowsiness or sleepiness, denies suicidal ideation and reports that the current pain medication is helping to control the pain and improve activities of daily living. Patient denies any motor or sensory deficits. Patient denies any fever or night sweats, denies any change in the bowel movements or urination. Physical Examination: -Constitutional: Cooperative. Not in acute distress . -HEENT: Neck is supple. No lymphadenopathy. No thyromegaly. Normal thyroid size. Eyes: No ptosis , no icterus, no photophobia. ENT: No auditory deficits. Normal oropharynx. No Thrush. - Respiratory: Chest clear to auscultations bilaterally. No wheezing. No rhonchi. - Cardiovascular: Regular rate and rhythm. S1 / S2 , no S3 , no S4. - Gastrointestinal: Abdomen soft no tenderness. Bowel sounds positive in all four quadrants. No organomegaly. - Genitourinary: Deferred. - Neurologic: Cranial nerve II to XII intact. No focal neurological de ficits. - Psychatric: Alert & oriented x 3. Matching mood & appropriate affect. Judgment and insight intact. - Lymphatic: No Lymphadenopathy. - Musculoskeletal: Cervical spine: Muscle bulk/ tone/ strength in the bilateral upper extremities normal. Facet loading test cervical area positive. Lumbar spine: Motor bulk/ tone/ strength lower extremities , thigh and legs : 5/5 Deep tendon reflexes : Normal Knee Jerk. Normal Ankle Jerk . Vertebral body tenderness to palpation over Lumbar Facet Loading Test positive with jump reflex over BL L4-L5, L5-S1 Straight Leg Raise: positive at 30 degrees right side/ left side Gaenslen's Test positive Sacral spine : Severe tenderness over the Sacroiliac joint: right side / left side Range of motion: Flexion of the lumbar spine <60 degrees Range of motion: Extension of the lumbar spine <20 degrees Gaenslen's Test positive Adam test: positive right side / left side Assessment and plan: Chronic low back pain secondary to lumbar degenerative disc disease , lumbar spondylosis with facet arthropathy without myelopathy Recommendation of bilateral RFA L4-L5, L5-S1. Risks, benefits of procedure discussed and patient verbalized understanding. Eyes anticoagulants use an medical history of diabetes. Chronic and current use of high-risk medication (Opioids). The patient was counseled about risk of opioid use, psychological risk associated with opioids and was orally counseled to not overuse , divert or sell medications. Pt is to store medication in a safe location. The patient is counseled against driving while using narcotic medications and also not to use alcohol or any illicit recreational drugs. Patient verbalized understanding that the lack of compliance will result in failure to renew narcotic prescription(s) as well as possible discharge from the clinic Diagnoses, prognosis and treatment options including but not limited to physical therapy, surgical interventions, interventional therapies and medication management including narcotics and adjuvant medication were discussed. All patient questions answered MAPS reviewed and it was appropriate. Prescription refill for [place] 10/325 #90, Neurontin 400mg #90, Flexeril 10mg #60 and Elavil 100mg QHS with 1 refill. I have spent 31 minutes on patient care today. Dr Mesa was available by phone for the evaluation of this patient. The time was used to review the medical records including relevant urine studies and Prescription history (MAPs), review of the available imaging, evaluation and examination of the patient, coordination of care with the medical staff and if applicable referring physicians, as well as creation of the medical record Objective - Vital Signs Vital signs: Vital Signs Temp 98.4 F 08/17/21 10:19 Pulse 94 08/17/21 10:19 Resp 18 08/17/21 10:19 BP 117/84 08/17/21 10:19 Pulse Ox 97 08/17/21 10:19 Intake & Output 08/16/21 08/17/21 08/17/21 18:59 06:59 18:59 Weight 58.967 kg PQRS Measure Charge Sheet Mode of Arrival: Ambulatory - Pain Location Lower Back Non-Pharmacological Interventions: Exercise, Heat, Home Exercise, Ice, Inactivity, Massage, Physical Therapy, Position/Reposition, Stretching Pharmacological Interventions: Block, PRN Medication, Scheduled Medication, Topical Medication PQRS Narrative: Smoking Status Current every day smoker Narcotic Agreement Date Signed 03/01/21 Blood Pressure 117/84 Pain Intensity [Lower Back] 4 Hx Alcohol Use (MH) Yes: RARE Home Medications: Ambulatory Orders Multivitamins, Thera [Multivitamin] 1 tab PO QAM 11/24/13 Calcium Carbonate/Vitamin D3 [Caltrate 600 Plus D3 Tablet] 2 tab PO HS 06/26/17 Omeprazole [PriLOSEC] 40 mg PO DAILY PRN 08/22/18 Menthol [Bengay] 1 applic TOPICAL BID PRN 03/04/19 Diclofenac Sodium [Voltaren Gel] 1 dose TOPICAL DAILY PRN #4 gram 11/10/20 Amitriptyline HCl [Elavil] 100 mg PO HS 30 Days #30 tab 08/17/21 Cyclobenzaprine [Flexeril] 10 mg PO BID PRN 30 Days #60 tab 08/17/21 Gabapentin [Neurontin] 400 mg PO TID 30 Days #90 cap 08/17/21 HYDROcodone/APAP 10-325MG [[place] 10-325] 1 tab PO Q8H PRN 30 Days #90 tab 08/17/21 HYDROcodone/APAP 10-325MG [[place] 10-325] 1 tab PO Q8HR PRN 30 Days #90 tab 08/17/21
== END ==
LOC: PNWHC3 09:38
PROVIDERS: ATTEND Specialist
DX: M51.36 Other intervertebral disc degeneration, lumbar region (principal); M47.816 Spondylosis without myelopathy or radiculopathy, lumbar region; G89.29 Other chronic pain; E11.9 Type 2 diabetes mellitus without complications; Z79.891 Long term (current) use of opiate analgesic; F17.200 Nicotine dependence, unspecified, uncomplicated; Z88.6 Allergy status to analgesic agent
CPT/HCPCS: 99211

== ENCOUNTER 2021-09-23 07:47 | Day surgery (SDC) | payer BC ==
[2021-09-23 08:05] VITALS: TEMP 97.8
[2021-09-23] MEDS ORDERED: ROPIVACAINE 5MG/ML 20ML VIAL ONE (08:20)
[2021-09-23] MEDS ORDERED: LIDOCAINE 2% INJ 20 MG/ML (2 ML VIAL) ONE (08:20)
[2021-09-23] MEDS ORDERED: fentaNYL (PF) 50 MCG/ML 2 ML AMP ONE (08:23)
[2021-09-23] MEDS ORDERED: MIDAZOLAM 2 MG/2 ML VIAL ONE (08:23)
--- NOTE | 2021-09-23 08:48 | P.PCN ---
Date of Procedure: 09/23/21 Description of Procedure: PREOPERATIVE DIAGNOSIS: Lumbar Facet Arthropathy without myelopathy POSTOPERATIVE DIAGNOSIS: Same PROCEDURES: Bilateral Radiofrequency thermocoagulation of L4-5, L5-S1 medial branches, with fluoroscopic guidance ANESTHESIA: IV sedation with versed and fentanyl and local infiltration with lidocaine 1% 10 ml Imaging: Fluoroscopy was used, images where saved to the medical record PROCEDURE INDICATION: The patient with low back pain secondary to lumbar facet arthropathy who had more than 50% relief of pain with previous diagnostic lumbar medial branch block with local anesthetic. PROCEDURE DESCRIPTION / TECHNIQUE: The patient was seen and identified in the preoperative area. Risks, benefits, complications, including but not limited to risk of infection, bleeding, allergic reactions to the medications and no complete pain relief, and alternatives were discussed with the patient, the patient agreed to proceed with the procedure and signed the consent. IV was started. Vital signs remained stable throughout the procedure. Patient was taken to the OR and time out was completed. The patient was placed in the prone position on the procedure table. The lumber area was prepped and draped in the usual sterile fashion. Vital signs were closely monitored during the procedure. IV sedation was used during the procedure to decrease patient anxiety. Using AP and then oblique fluoroscopy, the eye of the Manolo dog corresponding to the connection between the superior and transverse articular processes of L4, L5, and sacral Ala were identified, marked, and localized with 1% lidocaine. Subsequently, a 20 -qv radiofrequency cannula with a 10-mm active tip was advanced guided by fluoroscopy to the junction of the pedicle and transverse process of each identified level. Each site then underwent sensory testing at 50 Hz and 0 to 1 volt and motor testing at 2.5 Hz and 0 to 3 volt with local stimulation, no radicular symptoms sensed by the patient and no obvious motor stimulation noted. Thereafter the tested sites underwent radiofrequency thermocoagulation at 80 degrees celsius for 90 seconds after injecting 1 ml of PF lidocaine 1%. Then after the thermocoagulation was done, 1 ml of the block solution containing ropivaciane 0.5% was injected at the lesioned sites after negative aspiration of CSF and blood and with no paresthesias. Cannulas were retracted. At the end of the procedure, the skin was cleansed and bandages were applied. COMPLICATIONS: No acute complications. DISPOSITION / PLANS: The patient was placed in a supine position and transferred to the recovery area in a stable condition for observation and was discharged from the recovery room after meeting discharge criteria. Home discharge instructions given to the patient by the staff. The patient was reexamined prior to discharge. Patient will follow up as directed.
[2021-09-23] MEDS ORDERED: IV FLUID CONTINUATION 800 ML IV ONE (08:53)
[2021-09-23 08:56] VITALS: RESP 16
[2021-09-23 09:09] VITALS: BP 111/75; PULSE 87
--- NOTE | 2021-09-23 11:49 | FL ---
Fluoroscopy HISTORY: Pain 10 seconds fluoroscopy time supplied to the referring clinician. 6 intraoperative C-arm images docum ent the procedure. See dictated report from anesthesia.
== END 2021-09-23 09:16 | disposition home or self-care (01) ==
LOC: ORPAIN 07:47
PROVIDERS: ATTEND Hospitalist
DX: M47.816 Spondylosis without myelopathy or radiculopathy, lumbar region (principal); F17.200 Nicotine dependence, unspecified, uncomplicated; Z87.442 Personal history of urinary calculi; F32.A Depression, unspecified; K21.9 Gastro-esophageal reflux disease without esophagitis; Z79.891 Long term (current) use of opiate analgesic; Z79.899 Other long term (current) drug therapy; Z88.6 Allergy status to analgesic agent
CPT/HCPCS: 64635; 64636; J2250; J3010; J2795; J2001

== ENCOUNTER → 2021-10-12 | Outpatient (CLI) | payer BC ==
[2021-10-12 10:49] VITALS: BP 118/80; PULSE 92; RESP 18; TEMP 98.4
--- NOTE | 2021-10-12 11:10 | P.PN ---
Subjective Progress Note Date: 10/12/21 Principal diagnosis: A 61 yr old female with a history of severe and chronic low back pain secondary to lumbar degenerative disc diseases and lumbar spondylosis with facet arthropathy presents today for medication refills. Pain level is currently at 4 out of 10 in intensity, constant, deep, sharp pain in the lower aspects of her lumbar spine with radiation of pain to the lower extremities. Patient also complains of bilateral calf tingling and numbness occasionally. Pain is provoked by standing and walking for periods of 20 minutes or more. Pain is alleviated with medications, topicals, injections, heat, ice, home-based stretching regimen, physical therapy 5 years ago, chiropractic treatments 2 years ago which made pain worse, repositioning, laying supine and rest. Interventional pain procedures completed include BL RFA Patient is currently on [place] 10/325mg, Flexeril, Elavil 100mg QHS, Neurontin TID. Patient denies any side effects of the medication(s), denies excessive drowsiness or sleepiness, denies suicidal ideation and reports that the current pain medication is helping to control the pain and improve activities of daily living. Patient denies any motor or sensory deficits. Patient denies any fever or night sweats, denies any change in the bowel movements or urination. Physical Examination: -Constitutional: Cooperative. Not in acute distress . -HEENT: Neck is supple. No lymphadenopathy. No thyromegaly. Normal thyroid size. Eyes: No ptosis , no icterus, no photophobia. ENT: No auditory deficits. Normal oropharynx. No Thrush. - Respiratory: Chest clear to auscultations bilaterally. No wheezing. No rhonchi. - Cardiovascular: Regular rate and rhythm. S1 / S2 , no S3 , no S4. - Gastrointestinal: Abdomen soft no tenderness. Bowel sounds positive in all four quadrants. No organomegaly. - Genitourinary: Deferred. - Neurologic: Cranial nerve II to XII intact. No focal neurological deficits. - Psychatric: Alert & oriented x 3. Matching mood & appropriate affect. Judgment and insight intact. - Lymphatic: No Lymphadenopathy. - Musculoskeletal: Cervical spine: Muscle bulk/ tone/ strength in the bilateral upper extremities normal. Vertebral body tenderness to palpation over Facet loading test cervical area positive. Lumbar spine: Motor bulk/ tone/ strength lower extremities , thigh and legs : 5/5 Deep tendon reflexes : Normal Knee Jerk. Normal Ankle Jerk . Vertebral body tenderness to palpation over L4, L5 Lumbar Facet Loading Test positive Straight Leg Raise: positive at 30 degrees right side/ left side Gaenslen's Test positive Sacral spine : Severe tenderness over the Sacroiliac joint: right side / left side Range of motion: Flexion of the lumbar spine <60 degrees Range of motion: Extension of the lumbar spine <20 degrees Gaenslen's Test positive Praveen's Test positive Adam test: positive right side / left side Assessment and plan: Chronic low back pain secondary to lumbar degenerative disc disease , lumbar spondylosis with facet arthropathy without myelopathy Chronic and current use of high-risk medication (Opioids). The patient was counseled about risk of opioid use, psychological risk associated with opioids and was orally counseled to not overuse , divert or sell medications. Pt is to store medication in a safe location. The patient is counseled against driving while using narcotic medications and also not to use alcohol or any illicit recreational drugs. Patient verbalized understanding that the lack of compliance will result in failure to renew narcotic prescription(s) as well as possible discharge from the clinic Diagnoses, prognosis and treatment options including but not limited to physical therapy, surgical interventions, interventional therapies and medication management including narcotics and adjuvant medication were discussed. All patient questions answered MAPS reviewed and it was appropriate. UDS from 01/05/21 reviewed and consistent. Collected urine for follow up U DS today 10/12/21. Prescription refill for [place], Flexeril, Neurontin, Elavil w 1 refill. I have spent 31 minutes on patient care today. Dr Mesa was available by phone for the evaluation of this patient. The time was used to review the medical records including relevant urine studies and Prescription history (MAPs), review of the available imaging, evaluation and examination of the rachel ent, coordination of care with the medical staff and if applicable referring physicians, as well as creation of the medical record Objective - Vital Signs Vital signs: Vital Signs Temp 98.4 F 10/12/21 10:37 Pulse 92 10/12/21 10:37 Resp 18 10/12/21 10:37 BP 118/80 10/12/21 10:37 Pulse Ox 98 10/12/21 10:37 Intake & Output 10/11/21 10/12/21 10/12/21 18:59 06:59 18:59 Weight 128 kg PQRS Measure Charge Sheet Mode of Arrival: Ambulatory - Pain Location Bilateral Lower Back Non-Pharmacological Interventions: Exercise, Heat, Ice, Inactivity, Massage, Physical Therapy, Stretching Pharmacological Interventions: Block, Epidural, Scheduled Medication, Topical Medication PQRS Narrative: Smoking Status Current every day smoker Narcotic Agreement Date Signed 03/01/21 Blood Pressure 118/80 Pain Intensity [Bilateral 4 Lower Back] Scale Used Numeric (1 - 10) Hx Alcohol Use (MH) Yes: RARE Home Medications: Ambulatory Orders Multivitamins, Thera [Multivitamin] 1 tab PO QAM 11/24/13 Calcium Carbonate/Vitamin D3 [Caltrate 600 Plus D3 Tablet] 2 tab PO HS 06/26/17 Omeprazole [PriLOSEC] 40 mg PO DAILY PRN 08/22/18 Menthol [Bengay] 1 applic TOPICAL BID PRN 03/04/19 Diclofenac Sodium [Voltaren Gel] 1 dose TOPICAL DAILY PRN #4 gram 11/10/20 Amitriptyline HCl [Elavil] 100 mg PO HS 30 Days #30 tab 08/17/21 Amitriptyline HCl [Elavil] 100 mg PO HS 30 Days #30 tab 10/12/21 Cyclobenzaprine [Flexeril] 10 mg PO BID PRN 30 Days #60 tab 10/12/21 Gabapentin [Neurontin] 400 mg PO TID 30 Days #90 cap 10/12/21 HYDROcodone/APAP 10-325MG [[place] 10-325] 1 tab PO Q8H PRN 30 Days #90 tab 10/12/21 HYDROcodone/APAP 10-325MG [[place] 10-325] 1 tab PO Q8HR PRN 30 Days #90 tab 10/12/21
== END ==
LOC: PNWHC3 10:02
PROVIDERS: ATTEND Specialist
DX: M51.36 Other intervertebral disc degeneration, lumbar region (principal); M47.816 Spondylosis without myelopathy or radiculopathy, lumbar region; G89.29 Other chronic pain; Z79.891 Long term (current) use of opiate analgesic; F17.200 Nicotine dependence, unspecified, uncomplicated; Z88.6 Allergy status to analgesic agent
CPT/HCPCS: 80307; 99212; G0482

== ENCOUNTER → 2021-12-07 | Outpatient (CLI) | payer BC ==
--- NOTE | 2021-12-07 10:46 | P.PAINPG ---
PQRS Measure Charge Sheet Comment: A 61 yr old female with a history of severe and chronic low back pain secondary to lumbar degenerative disc diseases and lumbar spondylosis with facet arthropathy presents today for medication refills. Pain level is currently at 3/10 in intensity, localized in the lower aspect of her lumbar spine, constant, dull/ achy in the back but shooting in character towards the back of the thighs. Pain is provoked by overactivity. Pain is alleviated with medications, injections, ice, heat, physical therapy which ended September 2021, daily home stretching regimen, repositioning and rest. Interventional pain procedures completed include BL RFA L3-L5, caudal ROGELIO with lysis. Patient is currently on [place] 10/325mg #90, Neurontin 400mg #90 Patient denies any side effects of the medication(s), denies excessive drowsiness or sleepiness, denies suicidal ideation and reports that the current pain medication is helping to control the pain and improve activities of daily living. Patient denies any motor or sensory deficits. Patient denies any fever or night sweats, denies any change in the bowel movements or urination. Physical Examination: -Constitutional: Cooperative. Not in acute distress . - Neurologic: Cranial nerve II to XII intact. No focal neurological deficits. - Psychatric: Alert & oriented x 3. Matching mood & appropriate affect. Judgment and insight intact. - Musculoskeletal: Cervical spine: Muscle bulk/ tone/ strength in the bilateral upper extremities normal Vertebral body tenderness to palpation over Spurling test positive Distraction test positive Facet loading test positive Thoracic spine Muscle bulk / tone/ strength in the bilateral paraspinal muscles normal Vertebral body tender to palpation over Facet loading test positive Lumbar spine: Motor bulk/ tone/ strength lower extremities , thigh and legs : 5/5 Deep tendon reflexes : Normal Knee Jerk. Normal Ankle Jerk . Vertebral body tenderness to palpation over L4 Lumbar Facet Loading Test positive Straight Leg Raise: positive at 30 degrees right side/ left side Gaenslen's Test positive Sacral spine : Severe tenderness over the Sacroiliac joint: right side / left side Range of motion: Flexion of the lumbar spine <60 degrees Range of motion: Extension of the lumbar spine <20 degrees Gaenslen's Test positive Praveen's Test positive Adam test: positive right side / left side Thigh Thrust Test Sacral Thrust Test Assessment and plan: Chronic low back pain secondary to lumbar degenerative disc disease , lumbar spondylosis with facet arthropathy without myelopathy Chronic and current use of high-risk medication (Opioids). The patient was counseled about risk of opioid use, psychological risk associated with opioids and was orally counseled to not overuse , divert or sell medications. Pt is to store medication in a safe location. The patient is counseled against driving while using narcotic medications and also not to use alcohol or any illicit recreational drugs. Patient verbalized understanding that the lack of compliance will result in failure to renew narcotic prescription(s) as well as possible discharge from the clinic Diagnoses, prognosis and treatment options including but not limited to physical therapy, surgical interventions, interventional therapies and medication management including narcotics and adjuvant medication were discussed. All patient questions answered MAPS reviewed and it was appropriate. Prescription refill for [place] 10/325mg , Neurontin 400mg w 1 refill I have spent less than 30 minutes on patient care today. Dr Mesa was available by phone for the evaluation of this patient. The time was used to review the medical records including relevant urine studies and Prescription history (MAPs), review of the available imaging, evaluation and examination of the patient, coordination of care with the medical staff and if applicable referring physicians, as well as creation of the medical record PQRS Narrative: Smoking Status Current every day smoker Narcotic Agreement Date Signed 03/01/21 Hx Alcohol Use (MH) Yes: RARE Home Medications: Ambulatory Orders Multivitamins, Thera [Multivitamin] 1 tab PO QAM 11/24/13 Calcium Carbonate/Vitamin D3 [Caltrate 600 Plus D3 Tablet] 2 tab PO HS 06/26/17 Omeprazole [PriLOSEC] 40 mg PO DAILY PRN 08/22/18 Menthol [Bengay] 1 applic TOPICAL BID PRN 03/04/19 Diclofenac Sodium [Voltaren Gel] 1 dose TOPICAL DAILY PRN #4 gram 11/10/20 Amitriptyline HCl [Elavil] 100 mg PO HS 30 Days #30 tab 08/17/21 Amitriptyline HCl [Elavil] 100 mg PO HS 30 Days #30 tab 10/12/21 Cyclobenzaprine [Flexeril] 10 mg PO BID PRN 30 Days #60 tab 10/12/21 Gabapentin [Neurontin] 400 mg PO TID 30 Days #90 cap 12/07/21 HYDROcodone/APAP 10-325MG [[place] 10-325] 1 tab PO Q8H PRN 30 Days #90 tab 12/07/21 HYDROcodone/APAP 10-325MG [[place] 10-325] 1 tab PO Q8HR PRN 30 Days #90 tab 12/07/21 Controlled Substance Measures - Controlled Substance Measures Is patient prescribed a controlled substance at discharge?: Yes When asked, does pt state using other controlled substances?: No If prescribed controlled substance>3 days was MAPS reviewed?: Yes If Rx opioid, was Start Talking consent form obtained?: Yes Was information provided regarding opioid addiction?: Yes
[2021-12-07 10:50] VITALS: BP 114/74; PULSE 108; RESP 18; TEMP 98
== END ==
LOC: PNWHC3 10:18
PROVIDERS: ATTEND Specialist
DX: M51.36 Other intervertebral disc degeneration, lumbar region (principal); M47.816 Spondylosis without myelopathy or radiculopathy, lumbar region; G89.29 Other chronic pain; Z79.891 Long term (current) use of opiate analgesic; Z88.6 Allergy status to analgesic agent; F17.200 Nicotine dependence, unspecified, uncomplicated
CPT/HCPCS: 99211

== ENCOUNTER → 2021-12-12 | Outpatient (CLI) | payer BC ==
--- NOTE | 2021-12-12 16:17 | CT ---
EXAMINATION TYPE: CT chest w con CT DLP: 116.3 mGycm, Automated exposure control for dose reduction was used. DATE OF EXAM: 12/12/2021 3:46 PM COMPARISON: Chest radiograph 12/12/2021, CT chest 06/21/2019. CLINICAL INDICATION:Female, 61 years old with history of R91.8 ABNORMAL FINDING OF LUNG FIELD; PHH, r ight lung nodule TECHNIQUE: Multiple axial images were obtained through the chest. Contrast used:70 mL of Isovue 300 with IV Contrast, Oral contrast used: None FINDINGS: LUNGS/ PLEURA: No evidence of focal consolidation, pneumothorax or pleural effusion. Enlarging right upper lobe pulmonary nodule now measuring 2.3 cm, previously 0.6 cm on 06/21/2019 AIRWAY: Patent and unremarkable.. HEART: Size within normal limits. . MEDIASTINUM: Precarinal cysts measuring 12 mm in short axis similar dating back to 06/21/2019. VASCULATURE: Atherosclerotic calcifications are present throughout the aorta and its branches. MUSCULOSKELETAL: No acute osseous abnormalities. Mild multilevel disc degeneration changes. SOFT TISSUES/LYMPH NODES: Unremarkable. LOWER NECK: Deflated/ruptured breast implant similar to 06/21/2019. UPPER ABDOMEN: Stable hepatic cyst. IMPRESSION: 1. Enlarging right upper lobe pulmonary nodule now measuring 2.8 cm concerning for malignancy. Tissue sampling and/or PET/CT is recommended. 2. Single enlarged mediastinal/precarinal lymph node now measuring 12 mm in short axis, this was seen on 06/21/2019. Attention PET/CT.
== END | disposition home or self-care (01) ==
LOC: RADCTMAIN 15:23
PROVIDERS: ATTEND Internal Medicine
DX: R91.8 Other nonspecific abnormal finding of lung field (principal)
CPT/HCPCS: 71260; Q9967

== ENCOUNTER 2021-12-22 10:28 | Day surgery (SDC) | payer BC ==
[~2021-12-22 10:28] MED LIST changes: +ALBUTEROL NEB (CONC) 2.5 MG/0.5 ML INHALATION ONE; +LIDOCAINE 2% (PF) 20 MG/ML 5 ML VIAL INHALATION ONE; +LIDOCAINE VISCOUS 300 MG/15 ML CUP MUCOUS MEM ONE; +SODIUM CHLORIDE 0.9% 1,000 ML IV SCH
[2021-12-22 11:00] VITALS: TEMP 97.8
[2021-12-22] MEDS ORDERED: LACTATED RINGERS 1,000 ML IV ONE (11:00)
[2021-12-22] MEDS ORDERED: ONDANSETRON 4 MG/2 ML VIAL ONE (11:08)
[2021-12-22] MEDS ORDERED: ONDANSETRON 4 MG/2 ML VIAL IVP ONE (11:09)
[2021-12-22] MEDS ORDERED: DEXAMETHASONE SOD PHOSPHATE 4 MG/ML 1 ML VIAL IVP ONE (11:10)
[2021-12-22] MEDS ORDERED: PROPOFOL 10 MG/ML 20 ML VIAL IV ONE (12:44)
[2021-12-22] MEDS ORDERED: fentaNYL (PF) 50 MCG/ML 2 ML AMP ONE (12:44)
[2021-12-22] MEDS ORDERED: MIDAZOLAM 2 MG/2 ML VIAL ONE (12:44)
[2021-12-22] MEDS ORDERED: LIDOCAINE 2% INJ 20 MG/ML (2 ML VIAL) ONE (12:44)
--- NOTE | 2021-12-22 13:41 | P.PCN ---
Date of Procedure: 12/22/21 Operative Findings: Preoperative Diagnosis: 1 right upper lobe mass 2 mediastinal lymphadenopathy, precarinal Postoperative Diagnosis: 1 right upper lobe mass, 2 mediastinal lymphadenopathy Procedure(s) Performed: 1 flexible bronchoscopy, airway inspection 2 endoscopic ultrasound (EBUS) 3 transbronchial needle aspirate of station of 7 lymph nodes 4 Navigation bronchoscopy and TBBX of the RUL Surgeon: Leonid Mazariegos MD Desk Lieutenant #1: Abi Mary NP Desk Lieutenant #2: Junie Juarez MD Estimated Blood Loss (ml): 0 Pathology: Transbronchial needle aspirate of precarinal lymph nodes, transbronchial biopsies/brushings/Neulasta is on the right upper lobe mass. Condition: stable Disposition: same day Operative Findings: The patient had a preoperative computed tomography scan of the chest using the Veran protocol. The CAT scan images were reviewed. The right lower lobe opacity was identified it was mapped appropriately. The CAT scan images are uploaded into a USB and then into the [employer] Navigation tower. After obtaining the consent the patient was taken to the OR suite he was intubated and put on MV by anesthesia then the scope was advanced to the ET tube until the Trachea was seen and it was normal and then the isabel appears normal then the scope advanced to the left main and BELA LB1-LB3 were seen and no endobronchial lesions were seen then the scope advanced to the lingula and the LB4 and LB5 were seen and no endobronchial lesions were seen the scope retracted and advanced to the left lower lobes LB6 to LB12 were seen one by one and no endobronchial lesions, then the scope was retracted back to the isabel and advanced to the Right main and RUL RB1 and RB2 and RB3 were seen one by one and no endobronchial lesions were seen the scope then retracted and advanced to the BI and RML RB4 and RB5 were seen and no endobronchial lesions were seen then it was retracted and advanced to the RLL RB6 to RB12 were seen one by one and no endobronchial lesions. Then EBUS was used and the lymph nodes were examined. Direct measurement of the mediastinal lymph nodes a 1.5cm x 1.0 precarinal lymph node. On the direct EBUS guidance, transbronchial needle aspirate of the lymph node was done and a total of 3 passes were obtained and the samples were evaluated by pathology. Rest of the mediastinal evaluation using the EBUS revealed no significant lymphadenopathy and all of the lymph nodes were identified less than 5 mm in size. Following that, the EBUS bronchoscope WAS COMPLETED AND THE BRONCHOSCOPE WAS REMOVED. Navigation bronchoscopy was performed. The main isabel and the secondary isabel on the left were used as the reference points and appropriate calibration was done. Following that, using a navigation guidance , the bronchoscope was advanced to the right upper lobe posterior segment and various transbronchial biopsies, transbronchial brushings and transbronchial needle aspirate of of the right lower lobe opacity was done without any complications. The procedure was completed. The bronchoscope was removed. No endobronchial leading was encountered. Patient was extubated and transferred recovery in stable condition. Follow-up chest x-rays to be done at recovery.
[2021-12-22] MEDS ORDERED: HYDROmorphone 0.5 MG/0.5 ML SYRINGE IVP ONE (14:16)
--- NOTE | 2021-12-22 14:27 | XR ---
EXAMINATION TYPE: XR chest 1V DATE OF EXAM: 12/22/2021 COMPARISON: 12/12/2021 HISTORY: Postbronchoscopy TECHNIQUE: Single frontal view of the chest is obtained. FINDINGS: 2.1 cm mass right upper lobe. Edematous changes are seen. No sizable pneumothorax no pleur al effusion or consolidative pneumonia. Heart size stable. No overt failure. Coarsened interstitium s uggests chronic interstitial lung disease. IMPRESSION: 1. No pneumothorax. 2.1 cm mass right upper lobe. 2. COPD correlate chronic interstitial lung disease
[2021-12-22 14:44] VITALS: BP 105/66; PULSE 88; RESP 18
--- NOTE | 2021-12-22 16:35 | CT ---
EXAMINATION TYPE: CT Chest katherin Rush Protocol DATE OF EXAM: 12/22/2021 COMPARISON: 12/12/2021 HISTORY: bronchial guidance CT DLP: 613 mGycm, Automated exposure control for dose reduction was used. CONTRAST: Performed injected with 0 mL of Isovue 300. TECHNIQUE: Axial images were obtained at 5 mm thick sections. Reconstructed images are reviewed on I[employer] computer in the coronal plane. FINDINGS: Portion of the thyroid visualized is normal. There is a 2.6 cm nodule within the posterior lateral right mid lung spiculated margins. The ascending aorta diameter at the level of the main pulmonary artery is 2.9 cm. The main pulmonary artery diameter at the bifurcation is 2.7 there is a prominent pretracheal node anterior to the rommel na measuring 1.0 cm. Additional small pretracheal nodes are present. Scattered small bilateral axilla ry lymph nodes are present. cm. Limited CT sections are obtained through the upper abdomen. Abdomen is essentially unremarkable. IMPRESSIONS: 1. CT for navigation assistance. 2. Right posterior lateral nodule. 3. Enlarged pretracheal lymph node precarinal space
== END 2021-12-22 15:25 | disposition home or self-care (01) ==
LOC: ORWHC2ENDO 10:28
PROVIDERS: ATTEND Internal Medicine Critical Care Medicine
DX: C7A.1 Malignant poorly differentiated neuroendocrine tumors (principal); R59.0 Localized enlarged lymph nodes; R91.1 Solitary pulmonary nodule; J44.9 Chronic obstructive pulmonary disease, unspecified; J84.9 Interstitial pulmonary disease, unspecified; F17.200 Nicotine dependence, unspecified, uncomplicated; K21.9 Gastro-esophageal reflux disease without esophagitis; F32.A Depression, unspecified; Z90.49 Acquired absence of other specified parts of digestive tract; Z87.442 Personal history of urinary calculi; Z79.899 Other long term (current) drug therapy; Z88.6 Allergy status to analgesic agent; Z79.51 Long term (current) use of inhaled steroids; Z80.51 Family history of malignant neoplasm of kidney; Z80.1 Family history of malignant neoplasm of trachea, bronchus and lung; Z83.6 Family history of other diseases of the respiratory system
CPT/HCPCS: 88104; 88305; 88173; 88342; 88341; 71045; 71250; 31629; 31625; 31623; 31627; 31652; J2250; J1100; J2405; J3010; J2704; J1170; J2001

== ENCOUNTER → 2022-04-12 | Outpatient (CLI) | payer BC ==
[2022-04-12 08:35] VITALS: BP 105/73; PULSE 90; RESP 16
--- NOTE | 2022-04-12 14:40 | P.PAINPG ---
PQRS Measure Charge Sheet Comment: A 61 yr old female with a history of severe and chronic low back pain secondary to lumbar DDD and spondylosis with facet arthropathy without myelopathy presents today for medication refills and LBP. Pain level is currently at 7/10 in intensity, constant, localized in the lower lumbar spine, throbbing, achy shooting towards the LLE. Pain is provoked by bending. Pain is alleviated with home exercise regimen, medications, ice, topicals, repositioning and rest. Pt completed a BL L3-L5 RFA in August 2021 and experienced 70% pain relief x 7 mo. Interventional pain procedures completed include BL RFA L3-L5 x4, Caudal ROGELIO (2018) Patient is currently on [place] 10/325mg , Neurontin 400mg Patient denies any side effects of the medication(s), denies excessive drowsiness or sleepiness, denies suicidal ideation and reports that the current pain medication is helping to control the pain and improve activities of daily living. Patient denies any motor or sensory deficits. Patient denies any fever or night sweats, denies any change in the bowel movements or urination. Physical Examination: -Constitutional: Cooperative. Not in acute distress . - Neurologic: Cranial nerve II to XII intact. No focal neurological deficits. - Psychatric: Alert & oriented x 3. Matching mood & appropriate affect. Judgment and insight intact. - Musculoskeletal: Cervical spine: Muscle bulk/ tone/ strength in the bilateral upper extremities normal Vertebral body tenderness to palpation over Spurling test positive Distraction test positive Facet loading test positive Thoracic spine Muscle bulk / tone/ strength in the bilateral paraspinal muscles normal Vertebral body tender to palpation over Facet loading test positive Lumbar spine: Motor bulk/ tone/ strength lower extremities , thigh and legs : 5/5 Deep tendon reflexes : Normal Knee Jerk. Normal Ankle Jerk . Vertebral body tenderness to palpation over Lumbar Facet Loading Test positive jump reflex over BL L4-L5, L5-S1 facets upon palpation Straight Leg Raise: positive at 30 degrees right side/ left side Gaenslen's Test positive Sacral spine : Severe tenderness over the Sacroiliac joint: right side / left side Range of motion: Flexion of the lumbar spine <60 degrees Range of motion: Extension of the lumbar spine <20 degrees Gaenslen's Test positive Adam test: positive right side / left side Thigh Thrust Test Sacral Thrust Test Assessment and plan: Chronic low back pain secondary to lumbar degenerative disc disease, spondylosis with facet arthropathy without myelopathy Recommendation of BL RFA L4-L5, L5-S1. Pt exhibited sufficient and optimal pain relief w prior RFA in Aug 2021. Risks, benefits of procedure discussed and pt verbalized understanding. Denies anticoagulant use or medical history of diabetes. Chronic and current use of high-risk medication (Opioids). The patient was counseled about risk of opioid use, psychological risk associated with opioids and was orally counseled to not overuse , divert or sell medications. Pt is to store medication in a safe location. The patient is counseled against driving while using narcotic medications and also not to use alcohol or any illicit recreational drugs. Patient verbalized understanding that the lack of compliance will result in failure to renew narcotic prescription(s) as well as possible discharge from the clinic Diagnoses, prognosis and treatment options including but not limited to physical therapy, surgical interventions, interventional therapies and medication management including narcotics and adjuvant medication were discussed. All patient questions answered MAPS reviewed and it was appropriate. UDS to be completed today 04/12/22 UDS from September 2021 reviewed and consistent. Prescription refill for [place] 10/325mg , Neurontin 400mg w 1 RF I have spent less than 30 minutes on patient care today. Dr Mesa was available by phone for the evaluation of this patient. The time was used to review the medical records including relevant urine studies and Prescription history (MAPs), review of the available imaging, evaluation and examination of the patient, coordination of care with the medical staff and if applicable referring physicians, as well as creation of the medical record PQRS Narrative: Smoking Status Current every day smoker Narcotic Agreement Date Signed 03/01/21 Hx Alcohol Use (MH) Yes: RARE Home Medications: Ambulatory Orders Multivitamins, Thera [Multivitamin] 1 tab PO QAM 11/24/13 Calcium Carbonate/Vitamin D3 [Caltrate 600 Plus D3 Tablet] 2 tab PO HS 06/26/17 Omeprazole [PriLOSEC] 40 mg PO DAILY PRN 08/22/18 Menthol [Bengay] 1 applic TOPICAL BID PRN 03/04/19 Diclofenac Sodium [Voltaren Gel] 1 dose TOPICAL DAILY PRN #4 gram 11/10/20 Amitriptyline HCl [Elavil] 100 mg PO HS 30 Days #30 tab 12/07/21 Cyclobenzaprine [Flexeril] 10 mg PO BID PRN 30 Days #60 tab 12/07/21 Gabapentin [Neurontin] 400 mg PO TID 30 Days #90 cap 12/07/21 HYDROcodone/APAP 10-325MG [[place] 10-325] 1 tab PO Q8HR PRN 30 Days #90 tab Fluticasone/Umeclidin/Vilanter [Trelegy Ellipta 100-62.5-25] 1 puff INHALATION DAILY 12/20/21 Ibuprofen [Motrin] 600 mg PO Q6HR PRN 12/20/21 Metoprolol Succinate [Metoprolol Succinate ER] 25 mg PO DAILY 12/20/21 Controlled Substance Measures - Controlled Substance Measures Is patient prescribed a controlled substance at discharge?: Yes When asked, does pt state using other controlled substances?: No If prescribed controlled substance>3 days was MAPS reviewed?: Yes If Rx opioid, was Start Talking consent form obtained?: Yes Was information provided regarding opioid addiction?: Yes
== END ==
LOC: PNWHC3 08:00
PROVIDERS: ATTEND Specialist
DX: M47.816 Spondylosis without myelopathy or radiculopathy, lumbar region (principal); M51.36 Other intervertebral disc degeneration, lumbar region; G89.29 Other chronic pain; Z79.891 Long term (current) use of opiate analgesic; F17.200 Nicotine dependence, unspecified, uncomplicated; Z88.6 Allergy status to analgesic agent
CPT/HCPCS: 99212

== ENCOUNTER → 2022-06-07 | Outpatient (CLI) | payer BC ==
[2022-06-07 10:02] VITALS: BP 118/82; PULSE 90; RESP 18; TEMP 97.6
--- NOTE | 2022-06-07 14:33 | P.PAINPG ---
PQRS Measure Charge Sheet Comment: A 61 yr old female with a history of severe and chronic low back pain secondary to lumbar DDD and spondylosis with facet arthropathy without myelopathy presents today for medication refills. Pain level is currently at 7 /10 in intensity, constant, localized in the lumbar spine, achy/ sharp in character w shooting towards the BLEs. Pain is provoked by over activity. Pain is alleviated with PT in the past, daily home exercises, heat, ice, medications, topicals, repositioning and rest. Interventional pain procedures completed include BL RFA L3-L5 Patient is currently on Flexeril, Elavil, Neurontin Patient denies any side effects of the medication(s), denies excessive drowsiness or sleepiness, denies suicidal ideation and reports that the current pain medication is helping to control the pain and improve activities of daily living. Patient denies any motor or sensory deficits. Patient denies any fever or night sweats, denies any change in the bowel movements or urination. Physical Examination: -Constitutional: Cooperative. Not in acute distress . - Neurologic: Cranial nerve II to XII intact. No focal neurological deficits. - Psychatric: Alert & oriented x 3. Matching mood & appropriate affect. Judgment and insight intact. - Musculoskeletal: Cervical spine: Muscle bulk/ tone/ strength in the bilateral upper extremities normal Vertebral body tenderness to palpation over Spurling test positive Distraction test positive Facet loading test positive Thoracic spine Muscle bulk / tone/ strength in the bilateral paraspinal muscles normal Vertebral body tender to palpation over Facet loading test positive Lumbar spine: Motor bulk/ tone/ strength lower extremities , thigh and legs : 5/5 Deep tendon reflexes : Normal Knee Jerk. Normal Ankle Jerk . Vertebral body tenderness to palpation over L3, L4, L5 Lumbar Facet Loading Test positive Straight Leg Raise: positive at 30 degrees right side/ left side Gaenslen's Test positive Sacral spine : Severe tenderness over the Sacroiliac joint: right side / left side Range of motion: Flexion of the lumbar spine <60 degrees Range of motion: Extension of the lumbar spine <20 degrees Gaenslen's Test positive Adam test: positive right side / left side Thigh Thrust Test Sacral Thrust Test Assessment and plan: Chronic low back pain secondary to lumbar degenerative disc disease, spondylosis with facet arthropathy without myelopathy Chronic and current use of high-risk medication (Opioids). The patient was counseled about risk of opioid use, psychological risk associated with opioids and was orally counseled to not overuse , divert or sell medications. Pt is to store medication in a safe location. The patient is counseled against driving while using narcotic medications and also not to use alcohol or any illicit recreational drugs. Patient verbalized understanding that the lack of compliance will result in failure to renew narcotic prescription(s) as well as possible discharge from the clinic Diagnoses, prognosis and treatment options including but not limited to physical therapy, surgical interventions, interventional therapies and medication management including narcotics and adjuvant medication were discussed. All patient questions answered MAPS reviewed and it was appropriate. UDS to be repeated today 06/07/22. Last UDS 04/12/22 inconsistent. Prescription refill for Flexeril, Elavil, Neurontin w 1 RF I have spent less than 30 minutes on patient care today. Dr Mesa was available by phone for the evaluation of this patient. The time was used to review the medical records including relevant urine studies and Prescription history (MAPs), review of the available imaging, evaluation and examination of the patient, coordination of care with the medical staff and if applicable referring physicians, as well as creation of the medical record PQRS Narrative: Smoking Status Current every day smoker Narcotic Agreement Date Signed 04/12/22 Hx Alcohol Use (MH) Yes: RARE Home Medications: Ambulatory Orders Multivitamins, Thera [Multivitamin] 1 tab PO QAM 11/24/13 Calcium Carbonate/Vitamin D3 [Caltrate 600 Plus D3 Tablet] 2 tab PO HS 06/26/17 Omeprazole [PriLOSEC] 40 mg PO DAILY PRN 08/22/18 Menthol [Bengay] 1 applic TOPICAL BID PRN 03/04/19 Amitriptyline HCl [Elavil] 100 mg PO HS 30 Days #30 tab 12/07/21 Cyclobenzaprine [Flexeril] 10 mg PO BID PRN 30 Days #60 tab 12/07/21 Fluticasone/Umeclidin/Vilanter [Trelegy Ellipta 100-62.5-25] 1 puff INHALATION DAILY 12/20/21 Ibuprofen [Motrin] 600 mg PO Q6HR PRN 12/20/21 Gabapentin [Neurontin] 400 mg PO TID 30 Days #90 cap 04/12/22 HYDROcodone/APAP 10-325MG [Combs 10-325] 1 tab PO Q8HR PRN 30 Days #90 tab 04/12/22 HYDROcodone/APAP 10-325MG [Combs 10-325] 1 tab PO Q8HR PRN 30 Days #90 tab 04/12/22 Metoprolol Tartrate [Lopressor] 12.5 mg PO BID 04/12/22 Controlled Substance Measures - Controlled Substance Measures Is patient prescribed a controlled substance at discharge?: Yes When asked, does pt state using other controlled substances?: No If prescribed controlled substance>3 days was MAPS reviewed?: Yes If Rx opioid, was Start Talking consent form obtained?: Yes Was information provided regarding opioid addiction?: Yes
== END ==
LOC: PNWHC3 09:09
PROVIDERS: ATTEND Specialist
DX: M47.816 Spondylosis without myelopathy or radiculopathy, lumbar region (principal); M51.36 Other intervertebral disc degeneration, lumbar region; Z79.891 Long term (current) use of opiate analgesic; F17.200 Nicotine dependence, unspecified, uncomplicated; Z88.6 Allergy status to analgesic agent
CPT/HCPCS: 80307; 99212; G0482